=== PATIENT | male | born 1930 | race Caucasian/White ===

== ENCOUNTER 2020-10-15 16:38 | Inpatient (IN) | payer OTHER ==
[~2020-10-15] VITALS: Ht 175.3 cm; Wt 84.0 kg
[~2020-10-15 16:38] MED LIST: ALLO100 PO; ASPI81CH; CEPH500; COLCHICINE0.6 MG; DOC250 PO; FINA5 PO; NITR.4SL; OMEP20ER PO; PRIM50; SIMV40; Senna8.6 M1 PO; TAMS.4ER PO; ZESTORETIC 20-121 EA
[2020-10-15 17:06] LABS: BASOPHILS ABSOLUTE AUTO 0.06 K/mm3 (0.00-0.23); BASOPHILS PERCENT AUTO 1 % (0-2); EOSINOPHILS ABSOLUTE AUTO 0.48 K/mm3 (0.00-0.68); EOSINOPHILS PERCENT AUTO 6 % (0-6); Hematocrit 35.5 % (37.0-53.0); Hemoglobin 12.1 g/dL (13.5-17.5); IMMATURE GRAN ABSOLUTE AUTO 0.03 K/mm3 (0.00-0.10); IMMATURE GRAN PERCENT AUTO 0 % (0-1); LYMPHOCYTES PERCENT AUTO 16 % (21-46); MONOCYTES ABSOLUTE AUTO 0.42 K/mm3 (0.16-1.47); MONOCYTES PERCENT AUTO 5 % (4-13); Mean Corpuscular HGB 31.7 pg (26.0-34.0); Mean Corpuscular HGB Conc 34.1 g/dL (31.5-36.5); Mean Corpuscular Volume 93 fL (80-100); Mean Platelet Volume 8.8 fL (9.1-12.4); NEUTROPHILS ABSOLUTE AUTO 5.68 K/mm3 (1.96-9.15); NEUTROPHILS PERCENT AUTO 71 % (41-73); Platelet Count 284 K/mm3 (150-400); RDW Coefficient Variation 12.9 % (11.7-14.2); RDW Standard Deviation 44.4 fL (35.1-46.3); Red Blood Cell Count 3.82 M/mm3 (4.30-5.90); White Blood Cell Count 7.97 K/mm3 (4.00-11.30)
[2020-10-15 17:25] LABS: Albumin, Blood 3.7 g/dL (3.4-5.0); Albumin/Globulin Ratio 1.2 (0.8-1.8); Bilirubin, Total 0.3 mg/dL (0.1-1.0); Bun/Creatinine Ratio 12.7 (12.0-20.0); Calcium, Blood 8.6 mg/dL (8.5-10.1); Creatinine, Blood 1.58 mg/dL (0.60-1.20); Globulin, Blood 3.2 g/dL (2.2-4.0); Potassium, Blood 4.1 mmol/L (3.5-5.5); Total Protein, Blood 6.9 g/dL (6.4-8.2); Troponin I 0.29 ng/mL (0.000-0.040)
[2020-10-15 19:00] LABS: D-Dimer, Quantitative 0.73 mg/L FEU (0.00-0.52); International Normalized Ratio 1.04; Prothrombin Time Results 11.2 Sec (9.7-11.5)
[2020-10-15] MEDS ORDERED: AMLO5 PO (19:50)
[2020-10-15] MEDS ORDERED: LEVSOD75 PO (19:51)
[2020-10-15] MEDS ORDERED: MECL25 PO (19:52)
[2020-10-15] MEDS ORDERED: Prinivil10 MG PO (19:52)
[2020-10-15] MEDS ORDERED: THERA-D2000 UNIT PO (19:54)
[2020-10-15 20:18] LABS: Creatine Kinase MB 8.7 ng/mL (0.0-3.6); Creatine Kinase MB Index 6.8 (0.0-4.0)
[2020-10-15 20:20] LABS: Cholesterol 164 mg/dL (50-200); Triglycerides 185 mg/dL (30-160)
[2020-10-16 01:09] LABS: U Amphetamine Screen Not Detected; U Barbituate Screen Not Detected; U Benzodiazapine Screen Not Detected; U Buprenorphine Screen Not Detected; U Cannabinoids Screen Not Detected; U Cocaine Screen Not Detected; U Methadone Screen Not Detected; U Methamphetamine Screen Not Detected; U Opiates Screen Not Detected; U Oxycodone Screen Not Detected; U Phencyclidine Screen Not Detected; U Propoxyphene Screen Not Detected
[2020-10-16 02:38] LABS: BASOPHILS ABSOLUTE AUTO 0.07 K/mm3 (0.00-0.23); BASOPHILS PERCENT AUTO 1 % (0-2); EOSINOPHILS ABSOLUTE AUTO 0.74 K/mm3 (0.00-0.68); EOSINOPHILS PERCENT AUTO 11 % (0-6); Hemoglobin 10.7 g/dL (13.5-17.5); IMMATURE GRAN ABSOLUTE AUTO 0.02 K/mm3 (0.00-0.10); IMMATURE GRAN PERCENT AUTO 0 % (0-1); LYMPHOCYTES ABSOLUTE AUTO 1.69 K/mm3 (0.84-5.20); LYMPHOCYTES PERCENT AUTO 25 % (21-46); MONOCYTES ABSOLUTE AUTO 0.55 K/mm3 (0.16-1.47); MONOCYTES PERCENT AUTO 8 % (4-13); Mean Corpuscular HGB Conc 33.4 g/dL (31.5-36.5); Mean Corpuscular Volume 93 fL (80-100); Mean Platelet Volume 8.8 fL (9.1-12.4); NEUTROPHILS ABSOLUTE AUTO 3.83 K/mm3 (1.96-9.15); NEUTROPHILS PERCENT AUTO 56 % (41-73); Platelet Count 234 K/mm3 (150-400); RDW Standard Deviation 44.2 fL (35.1-46.3); Red Blood Cell Count 3.45 M/mm3 (4.30-5.90)
[2020-10-16 03:11] LABS: Albumin, Blood 3.1 g/dL (3.4-5.0); Albumin/Globulin Ratio 1.1 (0.8-1.8); Bilirubin, Total 0.4 mg/dL (0.1-1.0); Bun/Creatinine Ratio 14.2 (12.0-20.0); Creatine Kinase MB 16.7 ng/mL (0.0-3.6); Creatine Kinase MB Index 10.2 (0.0-4.0); Creatinine, Blood 1.41 mg/dL (0.60-1.20); Globulin, Blood 2.7 g/dL (2.2-4.0); Potassium, Blood 4.2 mmol/L (3.5-5.5); Total Protein, Blood 5.8 g/dL (6.4-8.2)
[2020-10-16 03:14] LABS: Troponin I 5.57 ng/mL (0.000-0.040)
--- NOTE | 2020-10-16 05:37 | NUR ---
ADMIT / SHIFT SUMMARY PT TO UNIT FROM ED. DENIES CP. AXO. IN SR/SB WITH STABLE BP'S. NITROPASTE ON LCW. ADMISSIONCOMPLETED EXCEPT FOR A FEW MEDS ON MED REC. PT ON RA, DENIES SOB, USING HOME CPAP. PT DENYING ANY CARDIAC RELATED SX'S POST ADMIT. HEPARIN INFUSING, TURNED OFF AND TITRATED WITH AM LABS. TROPONIN INCREASED TO >5, CARDIOLOGY CONSULT NOW CALLED IN. OTHERWISE, PT SLEEPING SOUNDLY POST ADMIT. WCTM.
[2020-10-16 10:26] LABS: SARS-Cov-2 (COVID-19) PCR, MMC NEGATIVE (NEGATIVE)
--- NOTE | 2020-10-16 14:05 | NUR ---
Echocardiogram completed.
--- NOTE | 2020-10-16 18:20 | NUR ---
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
[2020-10-17 04:41] LABS: CHOL/HDL RATIO 4.4; Cholesterol 148 mg/dL (50-200); HDL Cholesterol 34 mg/dL (>39); LDL/HDL RATIO 2.7; Low Density Lipoprotein Chol 91 mg/dL (0-110); Triglycerides 114 mg/dL (30-160); Very Low Density Lipoprot Chol 22 mg/dL (6-32)
--- NOTE | 2020-10-17 06:23 | NUR ---
SHIFT SUMMARY NO ACUTE CHANGES THIS SHIFT. PT A&OX4, KOI. SP02>92% ON RA, WORE CPAP WHILE SLEEPING. TELEMTRY READS SR/SB 50'S-60'S. PT DENIES PAIN. PT USED URINAL TO VOID DURING SHIFT. PT REPOSITIONED SELF T/O NIGHT. SLEPT T/O NIGHT. HEPARIN INFUSING PER EMAR. NS INFUSING PER EMAR. CALL LIGHT IN REACH. WILL GIVE REPORT TO ONCOMING NURSE.
[2020-10-17] MEDS ORDERED: MELO7.5 PO (11:56)
--- NOTE | 2020-10-17 12:06 | NUR ---
RETURN FROM ANGIO PT ARRIVED BACK FROM THE [facility] AT APPROXIMATELY 1145. PT HAS COMPRESSION DRESSING OVER RIGHT AC AND TR BAND IN PLACE OVER RADIAL ACCESS SITE. IMAGING AND DIAGNOSTICS WERE COMPLETED DURING THE PROCEDURE. TOMORROW PT WILL RETURN TO [facility] FOR FEMORAL ACCESS ANGIO. DR. HOANG STOPPED HEPARIN. NO DRAINAGE OR SIGN OF HEMATOMA AT THE SITE UPON RETURN TO PCU.
--- NOTE | 2020-10-17 13:52 | NUR ---
TR BAND TR BAND HAS BEEN MONITORED ACCORDING TO PROTOCOL, NO SIGN OF DRAINAGE OR HEMATOMA. PT HAS GOOD SENSATION IN HIS RIGHT HAND, AND STRONG RADIAL PULSE. VS STABLE AT THIS TIME
--- NOTE | 2020-10-17 14:54 | NUR ---
TR BAND REMOVED 3ML AIR FROM TR BAND AT 1440. NO SIGN OF DRAINAGE, HEMATOMA, GOOD SENSATION AND CAP REFILL IN THE RIGHT HAND, STRONG PULSE. WILL CONTINUE TO MONITOR AND REMOVE AIR TOLERATED BY THE RADIAL ACCESS SITE
--- NOTE | 2020-10-17 16:41 | NUR ---
TR BAND TR BAND HAS BEEN FULLY DEFLATED, 9ML OF AIR HAS BEEN REMOVED FROM THE BAND, THE BAND IS IN PLACE FOR 1 HOUR AND THEN WILL BE REMOVED LONG THERE ARE NO SIGNS OF HEMATOMA, NO DRAINAGE OR OTHER COMPLICATIONS. PT CURRENTLY SHOWS NO SIGNS OF DRAINAGE, NO HEMATOMA, FULL SENSATION IN FINGERS, HAND IS PINK AND WARM WITH GOOD PROFUSION, STRONG RADIAL PULSE.
[2020-10-17] MEDS ORDERED: NITR.4SL SL (16:44)
--- NOTE | 2020-10-17 18:22 | NUR ---
TR BAND REMOVED TR BAND HAS BEEN REMOVED OF 1814, THE ARM BOARD IS IN PLACE AND THE PT WAS REMINDED NOT TO USE THE ARM OTHER THAN GENTLE MOVEMENTS AND NO BENDING AT THE WRIST. PT IS AGREEABLE. NO DRAINAGE, NO HEMATOMA, STRONG PULSE AND FULL SENSATION AND PROFUSION IN THE HAND. AT THE PERFORATION SITE ON THE AC THE COMPRESSION DRESSING WAS REMOVED, NO DRAINAGE OR HEMATOMA NOTED.
--- NOTE | 2020-10-17 18:35 | NUR ---
SHIFT SUMMARY PT WAS TAKEN TO [facility] THIS MORNING AND HAD A DIAGNOSTIC PCI COMPLETED, PT RETURNED WITH TR BAND IN PLACE, NO DRAINAGE, HEMATOMA AND GOOD STRONG PULSE. THE TR BAND HAS BEEN REMOVED AND A TEGADERM WAS PUT IN ITS PLACE. THE PT HAD A RIGHT AC PERFORATION DURING THE PROCEDURE AND RETURNED TO PCU WITH GAUZE AND COBAN ON THE SITE ACTING A PRESSURE DRESSING; NO DRAINAGE OR HEMATOMA WITH THE SITE; THE DRESSING WAS REMOVED AT 1815 ALONG WITH THE TR BAND. SOME SLIGHT EDEMA WAS ON THE FOREARM BETWEEN THE TR BAND AND THE COBAN DRESSING IT HAS SINCE DECREASED. VS HAVE BEEN STABLE AND PT HAD FAMILY COME TO VISIT TODAY. PT WAS GIVEN THE CHOICE OF MEDICALLY MANAGING THE BLOCKAGE OR PROCEEDING WITH STENT PLACEMENT TOMORROW 10/18/20 WHICH POSES RISK TO HIS KIDNEY FUNCTION; THE PT AND HIS FAMILY HAVE DECIDED TO MEDICALLY MANAGE AT THIS TIME. PT IS RESTING IN BED
--- NOTE | 2020-10-18 04:11 | NUR ---
GUEST RELATIONS EXECUTIVE SUMMARY PT HAS DENIED ANY CP OR PRESSURE THIS SHIFT. PT HAS SLEPT COMFORTABLY FOR MOST OF THE NIGHT W CPAP ON. OPSITE ON RR HAS TRACE SWELLING WHICH IS UNCHANGED FROM PREVIOUS DAYSHIFT OTHERWISE C/D/I AND PAINLESS PER PT. SWELLING IN RFA IS IMPROVED GREATLY FROM START OF SHIFT. TELE HAS SHOWN SB 45-55 WHILE SLEEPING EVEN TOUCHING 39 VERY BRIEFLY. PT'S HR INSTANTLY UP IN 60'S WHEN AWOKEN AND APPEARS ASYMPTOMATIC. FLUIDS RUNNING AND URINE OUTPUT HAS BEEN VERY GOOD. VSS, WCTM.
[2020-10-18 04:37] LABS: BASOPHILS ABSOLUTE AUTO 0.05 K/mm3 (0.00-0.23); BASOPHILS PERCENT AUTO 1 % (0-2); EOSINOPHILS ABSOLUTE AUTO 0.64 K/mm3 (0.00-0.68); EOSINOPHILS PERCENT AUTO 9 % (0-6); Hematocrit 33.8 % (37.0-53.0); Hemoglobin 11.2 g/dL (13.5-17.5); IMMATURE GRAN ABSOLUTE AUTO 0.01 K/mm3 (0.00-0.10); IMMATURE GRAN PERCENT AUTO 0 % (0-1); LYMPHOCYTES ABSOLUTE AUTO 1.19 K/mm3 (0.84-5.20); LYMPHOCYTES PERCENT AUTO 17 % (21-46); MONOCYTES PERCENT AUTO 8 % (4-13); Mean Corpuscular HGB 30.9 pg (26.0-34.0); Mean Corpuscular HGB Conc 33.1 g/dL (31.5-36.5); Mean Corpuscular Volume 93 fL (80-100); Mean Platelet Volume 9.1 fL (9.1-12.4); NEUTROPHILS ABSOLUTE AUTO 4.67 K/mm3 (1.96-9.15); NEUTROPHILS PERCENT AUTO 65 % (41-73); Platelet Count 234 K/mm3 (150-400); RDW Standard Deviation 43.8 fL (35.1-46.3); Red Blood Cell Count 3.63 M/mm3 (4.30-5.90); White Blood Cell Count 7.16 K/mm3 (4.00-11.30)
[2020-10-18 04:55] LABS: Bun/Creatinine Ratio 14.7 (12.0-20.0); Calcium, Blood 8.5 mg/dL (8.5-10.1); Creatinine, Blood 1.43 mg/dL (0.60-1.20); Magnesium, Blood 1.8 mg/dL (1.6-2.4); Phosphorus, Blood 3.5 mg/dL (2.5-4.9); Potassium, Blood 4.1 mmol/L (3.5-5.5)
[2020-10-18] MEDS ORDERED: ACET325 PO (10:33)
[2020-10-18] MEDS ORDERED: Aspirin EC81 MG PO (10:33)
[2020-10-18] MEDS ORDERED: ONDA4ODT MM (10:34)
[2020-10-18] MEDS ORDERED: ATOR40TA PO (10:34)
[2020-10-18] MEDS ORDERED: Isosorbide Mono30 MG PO (10:35)
[2020-10-18] MEDS ORDERED: CLOP75 PO (10:35)
[2020-10-18] MEDS ORDERED: HYDR10 PO (10:37)
--- NOTE | 2020-10-18 11:32 | NUR ---
DISCHARGE PT WAS DISCHARGED AT APPROXIMATELY 1132. IV WAS REMOVED FROM LEFT AC, TELE WAS REMOVED, PT'S VS STABLE, PT ON RA. FOLLOW UP INSTRUCTIONS GIVEN TO PT TO MAKE APPOINTMENTS WITH PCP AND CARDIOLOGY. CARDIAC REHAB WAS ALSO CONTACTED FOR REFERRAL AND THEY WILL REACH OUT TO THE PATIENT TO SCHEDULE. PT WAS GIVEN INSTRUCTION ON CARING FOR THE TR BAND RADIAL ACCESS SITE AND LEFT WITH THE ARMBOARD IN PLACE. PT WAS GIVEN LOADING DOSE OF PLAVIX, 1ST DOSE OF IMDUR AND INCREASED DOSE OF LIPITOR PRIOR TO DISCHARGE.PT LEFT WITH SIGNIFICANT OTHER AND WAS ESCORTED OUT VIA WHEELCHAIR WITH CIVIL CLERK, AND ALL PERSONAL BELONGINGS INCLUDING HOME CPAP.
== END 2020-10-18 11:33 | disposition home or self-care (01) | DRG 281 ==
LOC: ER 16:38 → PCU 16:39
PROVIDERS: Emergency Medicine; Internal Medicine Cardiovascular Disease; ADMIT Family Medicine
PROC: 5A09357 Assistance with Respiratory Ventilation, Less than 24 Consecutive Hours, Continuous Positive Airway Pressure (ICD-10-PCS; 2020-10-15)
PROC: 03JY3ZZ Inspection of Upper Artery, Percutaneous Approach (ICD-10-PCS; principal; 2020-10-17)
PROC: 4A023N7 Measurement of Cardiac Sampling and Pressure, Left Heart, Percutaneous Approach (ICD-10-PCS; 2020-10-17)
PROC: B2111ZZ Fluoroscopy of Multiple Coronary Arteries using Low Osmolar Contrast (ICD-10-PCS; 2020-10-17)
DX: I21.4 Non-ST elevation (NSTEMI) myocardial infarction (principal); T82.855A Stenosis of coronary artery stent, initial encounter; I97.51 Accidental puncture and laceration of a circulatory system organ or structure during a circulatory system procedure; Q25.0 Patent ductus arteriosus; I25.10 Atherosclerotic heart disease of native coronary artery without angina pectoris; I44.0 Atrioventricular block, first degree; Z20.822 Contact with and (suspected) exposure to COVID-19; I16.0 Hypertensive urgency; I12.9 Hypertensive chronic kidney disease with stage 1 through stage 4 chronic kidney disease, or unspecified chronic kidney disease; N18.30 Chronic kidney disease, stage 3 unspecified; M10.9 Gout, unspecified; G47.33 Obstructive sleep apnea (adult) (pediatric); M54.9 Dorsalgia, unspecified; G89.29 Other chronic pain; N40.0 Benign prostatic hyperplasia without lower urinary tract symptoms; K21.9 Gastro-esophageal reflux disease without esophagitis; R00.1 Bradycardia, unspecified; D64.9 Anemia, unspecified; I73.9 Peripheral vascular disease, unspecified; Y65.8 Other specified misadventures during surgical and medical care; Y71.0 Diagnostic and monitoring cardiovascular devices associated with adverse incidents; Y92.239 Unspecified place in hospital as the place of occurrence of the external cause; Z79.899 Other long term (current) drug therapy
CPT/HCPCS: 36415; 71045; 76937; 80048; 80053; 80061; 82465; 82550; 82553; 83735; 83880; 84100; 84443; 84478; 84484; 85025; 85347; 85379; 85610; 85730; 93005; 93010; 93306; 93454; 94762; 96365; 96375; 96376; 99152; 99153; 99285-25; A9270; C1769; C1887; C1894; J1644; J2250; J2405; J3010; J7030; Q9967; U0004

== ENCOUNTER 2020-10-31 10:18 | Inpatient (IN) | payer OTHER ==
[~2020-10-31] VITALS: Ht 175.3 cm; Wt 81.5 kg
[~2020-10-31 10:18] MED LIST changes: +ACET325 PO; +AMLO5 PO; +ATOR40TA PO; +Aspirin EC81 MG PO; +CLOP75 PO; +HYDR10 PO; +Isosorbide Mono30 MG PO; +LEVSOD75 PO; +MECL25 PO; +MELO7.5 PO; +NITR.4SL SL; +ONDA4ODT MM; +Prinivil10 MG PO; +THERA-D2000 UNIT PO
[2020-10-31] MEDS ORDERED: DOCU100 PO (10:42)
[2020-10-31 11:04] LABS: BASOPHILS ABSOLUTE AUTO 0.06 K/mm3 (0.00-0.23); BASOPHILS PERCENT AUTO 1 % (0-2); EOSINOPHILS ABSOLUTE AUTO 0.32 K/mm3 (0.00-0.68); EOSINOPHILS PERCENT AUTO 3 % (0-6); Hematocrit 31.3 % (37.0-53.0); Hemoglobin 10.6 g/dL (13.5-17.5); IMMATURE GRAN ABSOLUTE AUTO 0.06 K/mm3 (0.00-0.10); IMMATURE GRAN PERCENT AUTO 1 % (0-1); LYMPHOCYTES ABSOLUTE AUTO 1.22 K/mm3 (0.84-5.20); LYMPHOCYTES PERCENT AUTO 11 % (21-46); MONOCYTES ABSOLUTE AUTO 0.69 K/mm3 (0.16-1.47); MONOCYTES PERCENT AUTO 6 % (4-13); Mean Corpuscular HGB 31.3 pg (26.0-34.0); Mean Corpuscular HGB Conc 33.9 g/dL (31.5-36.5); Mean Corpuscular Volume 92 fL (80-100); Mean Platelet Volume 9.1 fL (9.1-12.4); NEUTROPHILS ABSOLUTE AUTO 8.69 K/mm3 (1.96-9.15); NEUTROPHILS PERCENT AUTO 79 % (41-73); Platelet Count 333 K/mm3 (150-400); RDW Coefficient Variation 12.7 % (11.7-14.2); Red Blood Cell Count 3.39 M/mm3 (4.30-5.90); White Blood Cell Count 11.04 K/mm3 (4.00-11.30)
[2020-10-31 11:10] LABS: Alanine Aminotransfer (ALT/SGP 20 U/L (12-78); Albumin, Blood 3.5 g/dL (3.4-5.0); Albumin/Globulin Ratio 1.1 (0.8-1.8); Alk Phos 154 U/L (50-136); Anion Gap 9 mmol/L (6-16); Aspartate Aminotrans (AST/SGOT 13 U/L (12-37); Bilirubin, Total 0.4 mg/dL (0.1-1.0); Blood Urea Nitrogen 51 mg/dL (8-24); Bun/Creatinine Ratio 20.8 (12.0-20.0); CO2, Blood 16 mmol/L (21-32); Calcium, Blood 8.4 mg/dL (8.5-10.1); Chloride, Blood 102 mmol/L (98-108); Creatinine, Blood 2.45 mg/dL (0.60-1.20); Globulin, Blood 3.1 g/dL (2.2-4.0); Glomerular Filtration Rate 27 (60-); Glucose, Blood 127 mg/dL (70-99); Potassium, Blood 5.5 mmol/L (3.5-5.5); Sodium, Blood 127 mmol/L (136-145); Total Protein, Blood 6.6 g/dL (6.4-8.2); Troponin I <0.015 ng/mL (0.000-0.040)
--- NOTE | 2020-10-31 17:58 | NUR ---
SHIFT SUMMARY ED ADMIT THIS AFTERNOON. PATIENT DENIES PAIN, NAUSEA, AND SHORTNESS OF BREATH. PATIENT DENIES DIZZINESS BUT STATES HE STILL FEELS WEAKER THAN HIS NORMAL LEVEL OF ENERGY. TELEMETRY SHOWS NS IN THE 60'S PER MONTIOR TECH. AT BEDSIDE. PLEASANT AND COOPERATIVE WITH CARE.
[2020-11-01 05:05] LABS: Bun/Creatinine Ratio 21.3 (12.0-20.0); Calcium, Blood 8.2 mg/dL (8.5-10.1); Creatinine, Blood 2.02 mg/dL (0.60-1.20); Potassium, Blood 5.5 mmol/L (3.5-5.5)
--- NOTE | 2020-11-01 05:50 | NUR ---
SHIFT SUMMARY A/O, ABLE TO MAKE NEEDS KNOWN. COOPERATIVE WITH CARE. CALLS AND ANSWERS QUESTIONS APPROPRIATELY. NO C/O PAIN/DISCOMFORT. DID NOT APPEAR TO REST MUCH OVERNIGHT. WORE CPAP FOR VERY SHORT PERIOD OF TIME. TELE RUNNING SR /c 1ST DEGREE @ 61 PER CLINICAL BUSINESS MANAGER. NO ACUTE CHANGES NOTED OVERNIGHT. VSS/AFEBRILE. BED REMAINS IN LOWEST POSITION; ALARM ON. CALL LIGHT AND BELONGINGS WITHIN REACH. CONTINUE WITH CURRENT PLAN OF CARE. REPORT TO ONCOMING RN.
--- NOTE | 2020-11-01 18:23 | NUR ---
SHIFT SUMMARY PT HAS BEEN AWAKE MOST OF THE SHIFT. PT HAS HAD NO COMPLAINTS. WORKED WITH PHYSICAL THERAPY THIS SHIFT AND HAS BEEN AMBULATING WITH FWW WITHOUT DIFFICULTY. PT HAS HAD A GOOD APPETITE AND BEEN REMINDED TO DRINK PLENTY OF FLUIDS. NO ACUTE DISTRESS THIS SHIFT. PLANS FOR POSSIBLE DISCHARGE TOMORROW. CALL LIGHT IN REACH. WILL CONTINUE TO MONITOR AND REPORT TO ONCOMING RN.
[2020-11-02 05:04] LABS: Bun/Creatinine Ratio 19.6 (12.0-20.0); Calcium, Blood 8.5 mg/dL (8.5-10.1); Creatinine, Blood 1.68 mg/dL (0.60-1.20); Potassium, Blood 5.5 mmol/L (3.5-5.5)
--- NOTE | 2020-11-02 05:33 | NUR ---
SHIFT SUMMARY A/O, ABLE TO MAKE NEEDS KNOWN. COOPERATIVE WITH CARE. CALLS AND ANSWERS QUESTIONS APPROPRIATELY. NO C/O PAIN/DISCOMFORT. 1P /c FWW TO BATHROOM; STRONG/STEADY GAIT NOTED. APPEARED TO REST WELL OVERNIGHT. TELE RUNNING SB /c 1st DEGREE @ 55 PER SCRATCHER TENDER. VSS/AFEBRILE. NO ACUTE CHANGES NOTED OVERNIGHT. BED REMAINED IN LOWEST POSITION; ALARM ON. CALL LIGHT AND BELONGINGS WITHIN REACH. CONTINUE WITH CURRENT PLAN OF CARE. REPORT TO ONCOMING RN.
--- NOTE | 2020-11-02 13:31 | NUR ---
DISCHARGE PT DISCHARGED TO HOME. THIS RN EXPLAINED DISCHARGE INSTRUCTIONS AND MEDICATIONS TO PT AND PT'S SPOUSE. THEY REPORT THEY UNDERSTAND. IVS REMOVED WITHOUT DIFFICULTY. NO NEW MEDICATIONS. PT TRANSFERRED TO PRIVATE VEHICLE VIA WHEELCHAIR. PT'S BELONGINGS WITH PT AND PT'S SPOUSE.
== END 2020-11-02 12:45 | disposition home or self-care (01) | DRG 682 ==
LOC: ER 10:18 → MEDS 12:58
PROVIDERS: Emergency Medicine; Internal Medicine; ADMIT Internal Medicine
DX: N17.9 Acute kidney failure, unspecified (principal); I21.4 Non-ST elevation (NSTEMI) myocardial infarction; E87.1 Hypo-osmolality and hyponatremia; M10.9 Gout, unspecified; N18.9 Chronic kidney disease, unspecified; E86.0 Dehydration; N40.0 Benign prostatic hyperplasia without lower urinary tract symptoms; I25.10 Atherosclerotic heart disease of native coronary artery without angina pectoris; I12.9 Hypertensive chronic kidney disease with stage 1 through stage 4 chronic kidney disease, or unspecified chronic kidney disease; G47.33 Obstructive sleep apnea (adult) (pediatric); Z95.5 Presence of coronary angioplasty implant and graft; Z90.89 Acquired absence of other organs; Z98.1 Arthrodesis status; Z98.890 Other specified postprocedural states; Z79.899 Other long term (current) drug therapy; Z79.82 Long term (current) use of aspirin; Z79.02 Long term (current) use of antithrombotics/antiplatelets
CPT/HCPCS: 36415; 71045; 76770; 80048; 80053; 84484; 85025; 93005; 93010; 94762; 97110; 97116; 97162; 99285-25; A9270; C9113; J1644; J7030

== ENCOUNTER 2020-11-07 12:15 | Observation (INO) | payer OTHER ==
[~2020-11-07] VITALS: Ht 175.3 cm; Wt 79.3 kg
[~2020-11-07 12:15] MED LIST changes: +DOCU100 PO
[2020-11-07] MEDS ORDERED: CARBOXYMETHYLCE15 ML (12:38)
[2020-11-07 12:46] LABS: BASOPHILS ABSOLUTE AUTO 0.05 K/mm3 (0.00-0.23); BASOPHILS PERCENT AUTO 1 % (0-2); EOSINOPHILS ABSOLUTE AUTO 0.14 K/mm3 (0.00-0.68); EOSINOPHILS PERCENT AUTO 2 % (0-6); Hematocrit 30.9 % (37.0-53.0); Hemoglobin 11.3 g/dL (13.5-17.5); IMMATURE GRAN ABSOLUTE AUTO 0.05 K/mm3 (0.00-0.10); IMMATURE GRAN PERCENT AUTO 1 % (0-1); LYMPHOCYTES ABSOLUTE AUTO 0.91 K/mm3 (0.84-5.20); LYMPHOCYTES PERCENT AUTO 10 % (21-46); MONOCYTES ABSOLUTE AUTO 0.69 K/mm3 (0.16-1.47); MONOCYTES PERCENT AUTO 8 % (4-13); Mean Corpuscular HGB 31.5 pg (26.0-34.0); Mean Corpuscular HGB Conc 36.6 g/dL (31.5-36.5); Mean Corpuscular Volume 86 fL (80-100); Mean Platelet Volume 8.7 fL (9.1-12.4); NEUTROPHILS ABSOLUTE AUTO 7.05 K/mm3 (1.96-9.15); NEUTROPHILS PERCENT AUTO 79 % (41-73); Platelet Count 355 K/mm3 (150-400); RDW Coefficient Variation 12.1 % (11.7-14.2); RDW Standard Deviation 38.5 fL (35.1-46.3); Red Blood Cell Count 3.59 M/mm3 (4.30-5.90); White Blood Cell Count 8.89 K/mm3 (4.00-11.30)
[2020-11-07] MEDS ORDERED: MECL25 PO (12:46)
[2020-11-07] MEDS ORDERED: MELO7.5 PO (12:46)
[2020-11-07 13:10] LABS: Troponin I <0.015 ng/mL (0.000-0.040)
[2020-11-07 13:20] LABS: Alanine Aminotransfer (ALT/SGP 31 U/L (12-78); Albumin, Blood 3.8 g/dL (3.4-5.0); Albumin/Globulin Ratio 1.1 (0.8-1.8); Alk Phos 163 U/L (50-136); Anion Gap 8 mmol/L (6-16); Aspartate Aminotrans (AST/SGOT 25 U/L (12-37); Bilirubin, Total 0.5 mg/dL (0.1-1.0); Blood Urea Nitrogen 24 mg/dL (8-24); Bun/Creatinine Ratio 15.6 (12.0-20.0); CO2, Blood 20 mmol/L (21-32); Chloride, Blood 92 mmol/L (98-108); Creatinine, Blood 1.54 mg/dL (0.60-1.20); Globulin, Blood 3.5 g/dL (2.2-4.0); Glomerular Filtration Rate 46 (60-); Glucose, Blood 100 mg/dL (70-99); Potassium, Blood 4.5 mmol/L (3.5-5.5); Sodium, Blood 120 mmol/L (136-145); Total Protein, Blood 7.3 g/dL (6.4-8.2)
[2020-11-07 14:06] LABS: Source, Urine Clean Catch
[2020-11-07 14:14] LABS: Appearance, Urine Clear (Clear); Bilirubin, Urine Neg (Neg); Blood, Urine Neg (Neg); Color, Urine Yellow (P-Yellow); Glucose Qualitative, Urine Neg (Neg); Ketones, Urine 1+ (Neg); Leukocyte Esterase, Urine Neg (Neg); Nitrite, Urine Neg (Neg); Protein, Urine Neg (Neg); Specific Gravity, Urine 1.015 (1.003-1.022); Urobilinogen, Urine NORM (Normal)
--- NOTE | 2020-11-07 19:21 | NUR ---
SHIFT SUMMARY PATIENT TO THE FLOOR LATE THIS SHIFT. PATIENT ALERT AND ORIENTED UPON ARRIVAL. PATIENT PROVIDED WITH EVENING MEDICATIONS AND ORIENTED TO THE ROOM. PATIENT DENIES NEEDS AT THIS TIME. REPORT GIVEN TO NIGHT NURSE.
[2020-11-07 20:48] LABS: Bun/Creatinine Ratio 14.6 (12.0-20.0); Creatinine, Blood 1.58 mg/dL (0.60-1.20); Potassium, Blood 4.1 mmol/L (3.5-5.5)
--- NOTE | 2020-11-07 22:03 | NUR ---
HOME CPAP IN ROOM I HAVE SET UP THE PT'S HOME CPAP FOR THE NIGHT. I DID PUT IN THE ORDER, "BD PROTOCOL" TO ALLOW THE USE OF THE PT'S OWN CPAP WITH THE HOSPITALIST'S APPROVAL.
--- NOTE | 2020-11-08 04:03 | NUR ---
SHIFT SUMMARY ADMITTED FOR NAUSEA/VOMITING. FULL CODE. TELEMETRY: NSR @ 65 BPM. PLAN IS TO FLUID RESTRICT, SUPPLEMENT NA+, BOWEL CARE, MONITOR LABS, ADMIN PPI RX. HOPEFUL FOR DC HOME W/SPOUSE <2 DAYS. PT DENIES N/V THIS SHIFT. 1300 ML FLUID RESTRICTION. HOME CPAP IN ROOM FOR HS. [facility] IS [facility]. NO NEW CONCERNS THIS SHIFT.
[2020-11-08] MEDS ORDERED: Acetaminophen325 M1 PO (04:56)
[2020-11-08] MEDS ORDERED: CARBOXYMETHYLCE15 ML BOTHEYES (04:57)
[2020-11-08] MEDS ORDERED: MECL25 PO (05:01)
[2020-11-08] MEDS ORDERED: ONDA4 PO (05:02)
[2020-11-08 05:36] LABS: Bun/Creatinine Ratio 14.3 (12.0-20.0); Calcium, Blood 8.9 mg/dL (8.5-10.1); Creatinine, Blood 1.68 mg/dL (0.60-1.20); Potassium, Blood 4.3 mmol/L (3.5-5.5)
[2020-11-08] MEDS ORDERED: FAMO20 PO (11:08)
--- NOTE | 2020-11-08 11:59 | NUR ---
PT DISCHARGE TO HOME VIA WC. IV DC'D. PT GIVEN PACKET WITH MED LISTS' PT ALSO EDUCATED ABOUT THE NEW MEDICATION. PT ALREADY HAS SETUP APPOINTMENT TO PCP; INSTRUCTED TO WATER RESTRICTION FOR NOW WHILE WAITING FOR FOLLOW UP LAB OUTPT. PT WAS AT BEDSIDE. [facility], NO OTHER CONCERNS DURING DISCHARGE.
== END 2020-11-08 11:57 | disposition home or self-care (01) ==
LOC: ER 12:15 → MEDS 12:16
PROVIDERS: Emergency Medicine; ADMIT Internal Medicine
DX: E87.1 Hypo-osmolality and hyponatremia (principal); R11.2 Nausea with vomiting, unspecified; N40.0 Benign prostatic hyperplasia without lower urinary tract symptoms; K21.9 Gastro-esophageal reflux disease without esophagitis; I12.9 Hypertensive chronic kidney disease with stage 1 through stage 4 chronic kidney disease, or unspecified chronic kidney disease; N18.30 Chronic kidney disease, stage 3 unspecified; E03.9 Hypothyroidism, unspecified; K59.00 Constipation, unspecified; M10.9 Gout, unspecified; I25.10 Atherosclerotic heart disease of native coronary artery without angina pectoris; I25.2 Old myocardial infarction; Z95.5 Presence of coronary angioplasty implant and graft
CPT/HCPCS: 36415; 74022; 80048; 80053; 81003; 83690; 84484; 85025; 93005; 93010; 96372; 96374; 99285-25; A9270; G0378; J1650; J1940; J2405

== ENCOUNTER 2021-04-11 10:20 | Emergency (ER) | payer OTHER ==
[~2021-04-11] VITALS: Ht 170.2 cm; Wt 74.8 kg
[~2021-04-11 10:20] MED LIST changes: +Acetaminophen325 M1 PO; +CARBOXYMETHYLCE15 ML; +CARBOXYMETHYLCE15 ML BOTHEYES; +FAMO20 PO; +ONDA4 PO
[2021-04-11 11:17] LABS: BASOPHILS ABSOLUTE AUTO 0.04 K/mm3 (0.00-0.23); BASOPHILS PERCENT AUTO 0 % (0-2); EOSINOPHILS ABSOLUTE AUTO 0.19 K/mm3 (0.00-0.68); EOSINOPHILS PERCENT AUTO 2 % (0-6); Hematocrit 20.3 % (37.0-53.0); IMMATURE GRAN ABSOLUTE AUTO 0.04 K/mm3 (0.00-0.10); IMMATURE GRAN PERCENT AUTO 0 % (0-1); LYMPHOCYTES ABSOLUTE AUTO 0.82 K/mm3 (0.84-5.20); LYMPHOCYTES PERCENT AUTO 9 % (21-46); MONOCYTES ABSOLUTE AUTO 0.74 K/mm3 (0.16-1.47); MONOCYTES PERCENT AUTO 8 % (4-13); Mean Corpuscular HGB 18.4 pg (26.0-34.0); Mean Corpuscular HGB Conc 26.6 g/dL (31.5-36.5); Mean Corpuscular Volume 69 fL (80-100); Mean Platelet Volume 9.1 fL (9.1-12.4); NEUTROPHILS ABSOLUTE AUTO 7.54 K/mm3 (1.96-9.15); NEUTROPHILS PERCENT AUTO 81 % (41-73); Platelet Count 496 K/mm3 (150-400); RDW Coefficient Variation 19.8 % (11.7-14.2); RDW Standard Deviation 48.8 fL (35.1-46.3); Red Blood Cell Count 2.93 M/mm3 (4.30-5.90); White Blood Cell Count 9.37 K/mm3 (4.00-11.30)
[2021-04-11 11:28] LABS: Alanine Aminotransfer (ALT/SGP 20 U/L (12-78); Albumin/Globulin Ratio 0.8 (0.8-1.8); Alk Phos 223 U/L (50-136); Anion Gap 8 mmol/L (6-16); Aspartate Aminotrans (AST/SGOT 14 U/L (12-37); Bilirubin, Total 0.3 mg/dL (0.1-1.0); Blood Urea Nitrogen 26 mg/dL (8-24); Bun/Creatinine Ratio 17.4 (12.0-20.0); CO2, Blood 21 mmol/L (21-32); Calcium, Blood 8.7 mg/dL (8.5-10.1); Chloride, Blood 109 mmol/L (98-108); Creatinine, Blood 1.49 mg/dL (0.60-1.20); Globulin, Blood 3.6 g/dL (2.2-4.0); Glomerular Filtration Rate 44 (60-); Glucose, Blood 100 mg/dL (70-99); Potassium, Blood 4.3 mmol/L (3.5-5.5); Sodium, Blood 138 mmol/L (136-145); Total Protein, Blood 6.6 g/dL (6.4-8.2); Troponin I <0.015 ng/mL (0.000-0.040)
[2021-04-11 11:44] LABS: Hemoglobin 5.4 g/dL (13.5-17.5)
[2021-04-11 14:10] LABS: Influenza A, PCR NEGATIVE (NEGATIVE); Influenza B, PCR NEGATIVE (NEGATIVE); Resp Syncytial Virus, PCR NEGATIVE (NEGATIVE); SARS-Cov-2 (COVID-19) PCR, MMC NEGATIVE (NEGATIVE)
== END 2021-04-11 15:29 | disposition short-term general hospital (02) ==
LOC: ER 10:20
PROVIDERS: Emergency Medicine
DX: D50.9 Iron deficiency anemia, unspecified (principal); I12.9 Hypertensive chronic kidney disease with stage 1 through stage 4 chronic kidney disease, or unspecified chronic kidney disease; N18.30 Chronic kidney disease, stage 3 unspecified; I25.10 Atherosclerotic heart disease of native coronary artery without angina pectoris; I25.2 Old myocardial infarction; E03.9 Hypothyroidism, unspecified; N40.0 Benign prostatic hyperplasia without lower urinary tract symptoms; K21.9 Gastro-esophageal reflux disease without esophagitis; G47.30 Sleep apnea, unspecified; Z79.899 Other long term (current) drug therapy; Z79.82 Long term (current) use of aspirin; Z79.01 Long term (current) use of anticoagulants
CPT/HCPCS: 0241U; 36415; 71045; 80053; 84484; 85025; 86850; 86870; 86900; 86901; 86902; 86922; 93005; 93010; 99285-25

== ENCOUNTER 2021-08-04 07:30 | Day surgery (SDC) | payer OTHER ==
[~2021-08-04] VITALS: Ht 175.3 cm; Wt 76.0 kg
[~2021-08-04 07:30] MED LIST changes: +CIDAFLEX TABLE1 EAC1 PO; +FERSU300 PO; +[UNRECOGNIZED DRUG - CODE] SC
[2021-08-04] MEDS ORDERED: PANT20 PO (08:28)
--- NOTE | 2021-08-04 08:50 | NUR ---
INTO SDS VIA WC. ABLE TO AMBULATE SHORT DISTANCES WITH PERSONAL CANE. AT BEDSIDE.History, Chart, Medications and Allergies reviewed before start of procedure.Patient confirms NPO status and agrees with scheduled surgery. Patient states colon prep results clear.Lungs clear T/O to Auscultation. Patient States Post-Procedure ride home has been arranged WITH
--- NOTE | 2021-08-04 10:31 | NUR ---
08/04/[address] [facility] [place]ESTHESIA RECORD. Bite Block Placed. MONITOR INTACT WITH CONTINUOUS PULSE OXIMETRY AND INTERMITTENT BP. History, Chart, Medications and Allergies reviewed before start of procedure. 3-LEAD EKG REVIEWED WITH PHYSICIAN PRIOR TO START OF PROCEDURE. O2 VIA N/C INTACT THROUGHOUT SEDATION/PROCEDURE.
--- NOTE | 2021-08-04 12:46 | NUR ---
AMBULATED WITH PERSONAL CANE WITH STANDBY FROM SHANDA FISCHER. EDUCATED PT AND S/O ON NEED TO BALANCE BEFORE AMBULATING. Discharge instructions reviewed with patient AND S/O INCLUDING HOLDING PLAVIX DUE TO SCHEDULING ANOTER PROCEDURE NEXT WEEK PER DR. KEENAN VERBAL. Patient AND S/O verbalizes understanding. Copy given to patient to take home. Discharged via wheelchair to private car for ride home WITH S/O
== END 2021-08-04 12:35 | disposition home or self-care (01) ==
LOC: ORSCMMR 07:30 → ORD 11:30 → ORSCMMR 11:30 → ORSCSDS 09-12 09:45
PROVIDERS: Surgery
PROC: 0DBP8ZX Excision of Rectum, Via Natural or Artificial Opening Endoscopic, Diagnostic (ICD-10-PCS; principal; 2021-08-04 09:30)
PROC: 0DBL8ZX Excision of Transverse Colon, Via Natural or Artificial Opening Endoscopic, Diagnostic (ICD-10-PCS; principal; 2021-08-04 09:30)
PROC: 0DBH8ZX Excision of Cecum, Via Natural or Artificial Opening Endoscopic, Diagnostic (ICD-10-PCS; principal; 2021-08-04 09:30)
PROC: 3E0H8KZ Introduction of Other Diagnostic Substance into Lower GI, Via Natural or Artificial Opening Endoscopic (ICD-10-PCS; principal; 2021-08-04 09:30)
PROC: 0DJ08ZZ Inspection of Upper Intestinal Tract, Via Natural or Artificial Opening Endoscopic (ICD-10-PCS; principal; 2021-08-04 09:30)
PROC: 0DBK8ZX Excision of Ascending Colon, Via Natural or Artificial Opening Endoscopic, Diagnostic (ICD-10-PCS; principal; 2021-08-04 09:30)
DX: D50.0 Iron deficiency anemia secondary to blood loss (chronic) (principal); K92.1 Melena; C18.0 Malignant neoplasm of cecum; D12.2 Benign neoplasm of ascending colon; D12.3 Benign neoplasm of transverse colon; D12.8 Benign neoplasm of rectum; K21.9 Gastro-esophageal reflux disease without esophagitis; K44.9 Diaphragmatic hernia without obstruction or gangrene; I25.10 Atherosclerotic heart disease of native coronary artery without angina pectoris; G47.33 Obstructive sleep apnea (adult) (pediatric); Z87.891 Personal history of nicotine dependence; N18.30 Chronic kidney disease, stage 3 unspecified; E03.9 Hypothyroidism, unspecified; E78.5 Hyperlipidemia, unspecified; Z79.02 Long term (current) use of antithrombotics/antiplatelets; Z79.82 Long term (current) use of aspirin; Z79.899 Other long term (current) drug therapy
CPT/HCPCS: 88305; J2704; J7120

== ENCOUNTER 2021-08-09 09:46 | Inpatient (IN) | payer OTHER ==
[~2021-08-09] VITALS: Ht 175.3 cm; Wt 68.0 kg
[~2021-08-09 09:46] MED LIST changes: +PANT20 PO
--- NOTE | 2021-08-09 10:37 | NUR ---
PT INTO SDS VIA WC WITH . History, Chart, Medications and Allergies reviewed before start of procedure. Lungs clear T/O to Auscultation. Patient confirms NPO status and agrees with scheduled surgery. Pre-Op teaching done. Pt verbalizes understanding.
--- NOTE | 2021-08-09 13:09 | NUR ---
TOOK OVER PATIENT CARE AFTER REPORT WAS RECEIVED.
[2021-08-09 13:40] LABS: BASOPHILS ABSOLUTE AUTO 0.08 K/mm3 (0.00-0.23); BASOPHILS PERCENT AUTO 1 % (0-2); EOSINOPHILS ABSOLUTE AUTO 0.24 K/mm3 (0.00-0.68); EOSINOPHILS PERCENT AUTO 3 % (0-6); Hematocrit 28.2 % (37.0-53.0); Hemoglobin 8.2 g/dL (13.5-17.5); IMMATURE GRAN ABSOLUTE AUTO 0.03 K/mm3 (0.00-0.10); IMMATURE GRAN PERCENT AUTO 0 % (0-1); LYMPHOCYTES ABSOLUTE AUTO 0.65 K/mm3 (0.84-5.20); LYMPHOCYTES PERCENT AUTO 8 % (21-46); MONOCYTES ABSOLUTE AUTO 0.54 K/mm3 (0.16-1.47); MONOCYTES PERCENT AUTO 7 % (4-13); Mean Corpuscular HGB 26.3 pg (26.0-34.0); Mean Corpuscular HGB Conc 29.1 g/dL (31.5-36.5); Mean Corpuscular Volume 90 fL (80-100); Mean Platelet Volume 8.8 fL (9.1-12.4); NEUTROPHILS ABSOLUTE AUTO 6.61 K/mm3 (1.96-9.15); NEUTROPHILS PERCENT AUTO 81 % (41-73); Platelet Count 443 K/mm3 (150-400); RDW Coefficient Variation 18.3 % (11.7-14.2); RDW Standard Deviation 59.2 fL (35.1-46.3); Red Blood Cell Count 3.12 M/mm3 (4.30-5.90); White Blood Cell Count 8.15 K/mm3 (4.00-11.30)
--- NOTE | 2021-08-09 15:29 | NUR ---
08/09/21 1529 Trinity Saunders PATIENT HAD KEYS IN PLACE WHEN ENTERING OR. KEYS DRAINING YELLOW URINE.
[2021-08-09 20:40] LABS: Hematocrit 31.1 % (37.0-53.0); Hemoglobin 8.6 g/dL (13.5-17.5); Mean Corpuscular HGB 26.3 pg (26.0-34.0); Mean Corpuscular HGB Conc 27.7 g/dL (31.5-36.5); Mean Platelet Volume 8.6 fL (9.1-12.4); Platelet Count 515 K/mm3 (150-400); RDW Coefficient Variation 17.6 % (11.7-14.2); RDW Standard Deviation 61.1 fL (35.1-46.3); Red Blood Cell Count 3.27 M/mm3 (4.30-5.90); White Blood Cell Count 22.99 K/mm3 (4.00-11.30)
[2021-08-09 20:41] LABS: Mean Corpuscular Volume 95 fL (80-100)
--- NOTE | 2021-08-09 22:18 | NUR ---
RECEIVED PT. AT 2119 FROM PACU, PT. WAS AWAKE, MOANING AT TIMES, WHEN ASKED IF HE WAS IN PAIN BY WRITING IN A PAD, PT. REPLIED "NO". CPAP PLACED BY RT PT'S BASELINE AT HOME RELATED TO SLEEP APNEA, O2 AT 5L WITH O2 SAT 95% & ABOVE. COMPLAETE PHYSICAL ASSESSMENT DONE, 4 LAP INCISIONS ( 2 AT L QUADRANT, 1 AT UMBILICAL ARE & 1 AT RLQ) WITH DERMABOND C/D/I. TELEMETRY MONITORING PLACED PER MD ORDER, CONT. BIOX AT BEDSIDE, 1 IV ACCESS AT EACH ARM PATENT & INFUSING, SCDs PLACED, V/S CHECKED PER PROTOCOL WNL. 2224 PT. STARTED TO GO BACK TO SLEEP. NO S/S OF RESP./CV DISTRESS NOTED. KEYS CATH DRAINING CLEAR YELLOW URINE, CATH CARE DONE USING READYCLEANSE WIPES, PT. TOLERATED WELL.WILL CONTINUE TO MONITOR.
[2021-08-10 04:40] LABS: Hematocrit 31.5 % (37.0-53.0); Hemoglobin 9.1 g/dL (13.5-17.5); Mean Corpuscular HGB 26.7 pg (26.0-34.0); Mean Corpuscular HGB Conc 28.9 g/dL (31.5-36.5); Mean Corpuscular Volume 92 fL (80-100); Mean Platelet Volume 8.6 fL (9.1-12.4); Platelet Count 365 K/mm3 (150-400); RDW Coefficient Variation 17.4 % (11.7-14.2); RDW Standard Deviation 58.1 fL (35.1-46.3); Red Blood Cell Count 3.41 M/mm3 (4.30-5.90); White Blood Cell Count 16.44 K/mm3 (4.00-11.30)
[2021-08-10 05:04] LABS: Bun/Creatinine Ratio 14.6 (12.0-20.0); Calcium, Blood 8.6 mg/dL (8.5-10.1); Creatinine, Blood 1.71 mg/dL (0.60-1.20); Magnesium, Blood 2.1 mg/dL (1.6-2.4); Potassium, Blood 4.6 mmol/L (3.5-5.5)
--- NOTE | 2021-08-10 05:52 | NUR ---
SHIFT SUMMARY: PT. AOX4, CPAP ON BY RT, SLEEPING COMFORTABLY THROUGHOUT THE NIGT=HT, COMPLAINTS OF TENDERNESS/A\\PAIN TO ABDOMEN MEDICATED PER EMAR, VSS, NO ACUTE CHANGES NOTED. PT. REFUSED TO TAKE HIS 0600 PO MEDS PER PT. " I CAN NOT SWALLOW", WHEN ASKED WHY, PT. STATED " I WILL TRY IN THE MORNING". CN NOTIFIED. ROUNDING & TURNING DONE PER PROTOCOL THEN PRN, PT. TOLERATED WELL, VERBALIZED BEING COMFORTABLE WITH POSITIONS WHEN TURNED.
[2021-08-11 04:54] LABS: BASOPHILS ABSOLUTE AUTO 0.02 K/mm3 (0.00-0.23); BASOPHILS PERCENT AUTO 0 % (0-2); EOSINOPHILS PERCENT AUTO 0 % (0-6); Hematocrit 32.5 % (37.0-53.0); Hemoglobin 9.2 g/dL (13.5-17.5); IMMATURE GRAN ABSOLUTE AUTO 0.05 K/mm3 (0.00-0.10); IMMATURE GRAN PERCENT AUTO 0 % (0-1); LYMPHOCYTES ABSOLUTE AUTO 0.36 K/mm3 (0.84-5.20); LYMPHOCYTES PERCENT AUTO 3 % (21-46); MONOCYTES ABSOLUTE AUTO 0.99 K/mm3 (0.16-1.47); MONOCYTES PERCENT AUTO 7 % (4-13); Mean Corpuscular HGB Conc 28.3 g/dL (31.5-36.5); Mean Corpuscular Volume 92 fL (80-100); Mean Platelet Volume 8.9 fL (9.1-12.4); NEUTROPHILS ABSOLUTE AUTO 12.89 K/mm3 (1.96-9.15); NEUTROPHILS PERCENT AUTO 90 % (41-73); Platelet Count 373 K/mm3 (150-400); RDW Coefficient Variation 17.7 % (11.7-14.2); RDW Standard Deviation 58.3 fL (35.1-46.3); Red Blood Cell Count 3.54 M/mm3 (4.30-5.90); White Blood Cell Count 14.31 K/mm3 (4.00-11.30)
[2021-08-11 05:30] LABS: Bun/Creatinine Ratio 18.7 (12.0-20.0); Calcium, Blood 8.5 mg/dL (8.5-10.1); Creatinine, Blood 1.5 mg/dL (0.60-1.20); Potassium, Blood 4.1 mmol/L (3.5-5.5)
--- NOTE | 2021-08-11 06:06 | NUR ---
AT 0600 PT WAS ESCORTED TO CAT SCAN VIA WHEEL CHAIR, CONNECTED TO OXYGEN 3LPM VIA NC. HE HAS REMAINED SATING ABOVE 92% ON 3LPM OF OXYGEN VIA NC THROUGH OUT THE SHIFT. MADDIE DID TOLERATE HIS CPAP FOR A FEW HOURS THIS EVENING, THEN REQUESTED TO HAVE IT OFF. AT BASELINE HE DOES NOT REQUIRE OXYGEN EXCEPT FOR SLEEPING WITH CPAP. HE HAD ONE WATERY, LOOSE BM THIS EVENING. TWO PERSON ASSIST WITH FWW/GAITBELT TO BSC. KEYS IN PLACE DRAINING YELLOW URINE. HE REQUESTED PAIN MEDICATION ONCE. WILL CONTINUE TO MONITOR.
[2021-08-12 04:20] LABS: Hemoglobin 8.2 g/dL (13.5-17.5)
--- NOTE | 2021-08-12 17:07 | NUR ---
PT AOX3 AND COOPERATIVE OF CARE. PT IS STILL VERY TIRED AND TAKES A LOT OF NAPS. PT IS ABLE TO USE WALKER WITH GAIT BELT AND USE RESTROOM. PT NEEDS ENCOURAGEMENT TO EAT OR DRINK MUCH HE DOESN'T HAVE A STRONG APPETITE. PT TREATED FOR ABD PAIN PER EMAR. NO DISTRESS AT THIS TIME WILL CONTINUE TO MONITOR.
[2021-08-13 03:56] LABS: BASOPHILS ABSOLUTE AUTO 0.01 K/mm3 (0.00-0.23); BASOPHILS PERCENT AUTO 0 % (0-2); EOSINOPHILS ABSOLUTE AUTO 0.01 K/mm3 (0.00-0.68); EOSINOPHILS PERCENT AUTO 0 % (0-6); Hematocrit 28.7 % (37.0-53.0); Hemoglobin 8.4 g/dL (13.5-17.5); IMMATURE GRAN ABSOLUTE AUTO 0.02 K/mm3 (0.00-0.10); IMMATURE GRAN PERCENT AUTO 0 % (0-1); LYMPHOCYTES ABSOLUTE AUTO 0.32 K/mm3 (0.84-5.20); LYMPHOCYTES PERCENT AUTO 5 % (21-46); MONOCYTES ABSOLUTE AUTO 0.48 K/mm3 (0.16-1.47); MONOCYTES PERCENT AUTO 7 % (4-13); Mean Corpuscular HGB 25.9 pg (26.0-34.0); Mean Corpuscular HGB Conc 29.3 g/dL (31.5-36.5); Mean Corpuscular Volume 89 fL (80-100); NEUTROPHILS ABSOLUTE AUTO 5.95 K/mm3 (1.96-9.15); NEUTROPHILS PERCENT AUTO 88 % (41-73); Platelet Count 372 K/mm3 (150-400); RDW Coefficient Variation 17.4 % (11.7-14.2); RDW Standard Deviation 56.4 fL (35.1-46.3); Red Blood Cell Count 3.24 M/mm3 (4.30-5.90); White Blood Cell Count 6.79 K/mm3 (4.00-11.30)
[2021-08-13 04:11] LABS: Anion Gap 7 mmol/L (6-16); Blood Urea Nitrogen 29 mg/dL (8-24); Bun/Creatinine Ratio 28.4 (12.0-20.0); CO2, Blood 22 mmol/L (21-32); Calcium, Blood 8.1 mg/dL (8.5-10.1); Chloride, Blood 109 mmol/L (98-108); Creatinine, Blood 1.02 mg/dL (0.60-1.20); Glomerular Filtration Rate >60 (60-); Glucose, Blood 116 mg/dL (70-99); Potassium, Blood 3.8 mmol/L (3.5-5.5); Sodium, Blood 138 mmol/L (136-145)
--- NOTE | 2021-08-13 08:49 | NUR ---
SUMMARY PT WITH C/O TO BUSINESS SYSTEMS ANALYST OF MILD NAUSEA THIS AM.I WENT TO AND PT WAS SLEEPING. DAY RN AGREED TO FOLLOW UP, AND RIAN ORDERED.
--- NOTE | 2021-08-13 11:32 | NUR ---
LFA IV TWO IV ACCESS CHARTED IN SAME LOCATION, REMOVED DUPLICATE
--- NOTE | 2021-08-13 19:05 | NUR ---
SHIFT SUMMARY POD4 R SHEYLA COLECTOMY, A/OX4, VSS, PT REPORTED HAVING NAUSEA TODAY WHEN TRYING TO EAT REGULAR DIET WHICH HE WAS TOLERATING PRIOR, MEAL INTAKE CHECKED OVER LAST FEW DAYS WHICH SHOW MINIMAL (5% OR LESS) INTAKE WITH NOTHING TODAY, AT DINNER TIME HE ATTEMPTED TO TRY A BITE OF HIS FOOD AND BECAME INSTANTLY NAUSEATED WITH SMALL AMT OF EMISIS RESULTING. MEDICATED w RIAN AND UPDATED ONCALL SURGEON, ORDERS UPDATED WITH REGLAN (SEE EMAR) AND ACUTE ABD SERIES IN THE AM. PT DENIES NAUSEA AFTER MEDICATING. NO OTHER ACUTE EVENTS THIS SHIFT, CALL LIGHT IN REACH, WILL CTM AND REPORT TO NOC RN.
--- NOTE | 2021-08-14 07:35 | NUR ---
POD 5 S/P LAP SHEYLA COLECTOMY. PT VSS, 1-2L O2 NC IN PLACE PRN TO KEEP SATS >90%. INCISIONS CDI. PO INTAKE MINIMAL, PT DENIED N/V, REP PAIN MINIMAL. REPEAT IMAGING COMPLETED THIS AM. MOBILIZATION ENC PT JOVANNY.
--- NOTE | 2021-08-14 14:34 | NUR ---
DR BLANCO IN ROOM, PT WITH INCREASED WOB. INCREASED TO 6L FROM 4. RT NOTIFIED OF INCREASE.
--- NOTE | 2021-08-14 18:59 | NUR ---
SHIFT SUMMARY POD5 R HEMICOLECTOMY, A/OX4, VSS, PAIN MANAGED PER EMAR, AMBULATES c FWW/GB AND 1 SBA, CONTINUES TO HAVE TENDERNESS TO ABD c PALPATION AND IS GUARDED, PLEASANT AND COOPERATIVE c ALL NURSING CARE, NO ACUTE EVENTS THIS SHIFT, CALL LIGHT IN REACH, REPORT GIVEN TO ZEINAB FISCHER.
[2021-08-15 04:58] LABS: BASOPHILS ABSOLUTE AUTO 0.01 K/mm3 (0.00-0.23); BASOPHILS PERCENT AUTO 0 % (0-2); EOSINOPHILS ABSOLUTE AUTO 0.06 K/mm3 (0.00-0.68); EOSINOPHILS PERCENT AUTO 1 % (0-6); Hematocrit 30.8 % (37.0-53.0); Hemoglobin 8.8 g/dL (13.5-17.5); IMMATURE GRAN ABSOLUTE AUTO 0.07 K/mm3 (0.00-0.10); IMMATURE GRAN PERCENT AUTO 1 % (0-1); LYMPHOCYTES ABSOLUTE AUTO 0.66 K/mm3 (0.84-5.20); LYMPHOCYTES PERCENT AUTO 6 % (21-46); MONOCYTES ABSOLUTE AUTO 0.84 K/mm3 (0.16-1.47); MONOCYTES PERCENT AUTO 8 % (4-13); Mean Corpuscular HGB 25.1 pg (26.0-34.0); Mean Corpuscular HGB Conc 28.6 g/dL (31.5-36.5); Mean Corpuscular Volume 88 fL (80-100); Mean Platelet Volume 9.3 fL (9.1-12.4); NEUTROPHILS ABSOLUTE AUTO 9.31 K/mm3 (1.96-9.15); NEUTROPHILS PERCENT AUTO 85 % (41-73); Platelet Count 402 K/mm3 (150-400); RDW Standard Deviation 54.5 fL (35.1-46.3); White Blood Cell Count 10.95 K/mm3 (4.00-11.30)
[2021-08-15 05:09] LABS: Alanine Aminotransfer (ALT/SGP 16 U/L (12-78); Albumin, Blood 2.2 g/dL (3.4-5.0); Albumin/Globulin Ratio 0.8 (0.8-1.8); Alk Phos 112 U/L (50-136); Anion Gap 7 mmol/L (6-16); Aspartate Aminotrans (AST/SGOT 14 U/L (12-37); Bilirubin, Total 0.4 mg/dL (0.1-1.0); Blood Urea Nitrogen 24 mg/dL (8-24); Bun/Creatinine Ratio 23.3 (12.0-20.0); CO2, Blood 27 mmol/L (21-32); Calcium, Blood 8.4 mg/dL (8.5-10.1); Chloride, Blood 107 mmol/L (98-108); Creatinine, Blood 1.03 mg/dL (0.60-1.20); Globulin, Blood 2.9 g/dL (2.2-4.0); Glomerular Filtration Rate >60 (60-); Glucose, Blood 106 mg/dL (70-99); Magnesium, Blood 2.1 mg/dL (1.6-2.4); Phosphorus, Blood 2.9 mg/dL (2.5-4.9); Sodium, Blood 141 mmol/L (136-145); Total Protein, Blood 5.1 g/dL (6.4-8.2)
--- NOTE | 2021-08-15 06:45 | NUR ---
POD 6 S/P COLECTOMY. PT VSS, SATS >90% ON RA WHILE AWAKE, 1LO2 PLACED WHEN SLEEPING. PAIN MGD PER EMAR. PT DENIED N/V. ABD SOFTER AND LESS DISTENDED, PT PASSING FLATUS, NO BM. PT USING I/S AT BEDSIDE, MOBILIZATION ENC.
--- NOTE | 2021-08-15 19:16 | NUR ---
SHIFT SUMMARY POD6 LAP R HEMICOLECTOMY, A/O X4, VSS, PT CONTINUES TO HAVE POOR PO INTAKE, HAD SMALL AMT OF INTAKE AT BREAKFAST BUT NOTHING AFTERWARDS OTHER THAN FLUIDS, C/O OF ACUTE ABD PAIN AND WAS MEDICATED PER EMAR, PT C/O CONTINUED PAIN AFTER REASSESSMENT AND WAS GIVEN IV PAIN MEDS WHICH HE REPORTED TO REDUCE THE PAIN (SEE EMAR). TWO SCANT AMOUNTS OF EMESIS TODAY, PT REPORTED FEELING BETTER AFTER GETTING ZOFRAN. FIRST EMISIS WAS WHILE THE PT WAS IN THE BATHROOM AND WAS NOT NOTIFIED ABOUT IT UNTIL AFTER THE SECOND EPISODE JUST AFTEER 1500 TODAY. PT APPEARS TO BE FEELING BETTER AFTER THAT, REPORTS PAIN DOING BETTER, ABD IS SLIGHTLY MORE TENDER AFTER THIS COMPARED TO INITIAL ASSESSMENT AT START OF SHIFT. PT APPEARS STABLE AT THIS TIME. 2 BM TODAY, SECOND APPEARED TO HAVE SOME BLOOD (SURGEON AWARE). NO OTHER EVENTS THIS SHIFT, CALL LIGHT IN REACH, REPORT GIVEN TO NOC RN.
--- NOTE | 2021-08-16 06:39 | NUR ---
POD 6 S/P COLECTOMY. PT VSS. INCISIONS CDI. ABD SOFTER AND LESS DISTENDED THIS AM, BT MORE ACTIVE. PT PASSING SMALL AMT FLATUS, NO BM. PT DID REP MILD NAUSEA, NO EMESIS THIS SHIFT. PT PAIN MGD PER EMAR W/REP RELIEF. PT UP OOB W/FWW+SBA, MOBILIZATION ENC.
--- NOTE | 2021-08-16 17:24 | NUR ---
SHIFT SUMMARY PT IS POD# FROM LAP SHEYLA COLECTOMY. PT HAS HAD INCREASED ABD PAIN AND NAUSEA TODAY. NO VOMITING. PT HAS A DECREASED APPETITE. PT IS A 1 ASSIST WITH GAIT BELT AND WALKER. PAIN MANAGED WITH NORCO. VSS. REPORT GIVEN TO ZEINAB FISCHER.
--- NOTE | 2021-08-16 17:54 | NUR ---
PT. DECLINES ANY DINNER, STATES HE JUST DOESNT FEEL LIKE EATING TONIGHT. DOES VERBALIZE RELIEF OF ABDOMINAL DISCOMFORT WITH ONE PAIN PILL GIVEN AT 1648. RESTING IN CHAIR. DECLINES OFFER FOR ASSIST BACK TO BED AT THIS TIME. CALL LIGHT IN REACH.
--- NOTE | 2021-08-17 06:48 | NUR ---
summary pt sitting up in chair at bedside reporting good pain control. scant emesis x 1 tonight.
--- NOTE | 2021-08-17 15:21 | NUR ---
PT WITH POOR APPETITE AND STATES HE POLO INTERMITTENT NAUSEA, MEDICATED WITH ZOFRAN AND REPORTS SLIGHT LESSENING OF NAUSEA. PT HAS BEEN UP TO CHAIR THROUGHOUT SHIFT. MEDICATED X1 WITH PO MED FOR ABD PAIN AND REPORTS GOOD ELIEF OF PAIN. HAD ONE LIQUID BM WHICH WA REPORTED BY TUBE TEST TECHNICIAN TO LOOK LIKE CHARCOAL
--- NOTE | 2021-08-17 18:29 | NUR ---
SHIFT SUMMARY TOOK OVER CARE AT 1600. PT UP TO CHAIR, RESTING COMFORTABLY. LOW DINNER PO INTAKE. TOTAL 3 BM'S TODAY-DK BRYNN COLORED-LIQUID. WILL REPORT TO ONCOMING ZEINAB FISCHER.
--- NOTE | 2021-08-18 03:54 | NUR ---
PT WITH NEW ONSET A FLUTTER. I CALLED DR BERMUDEZ AND RECEIVED NEW ORDERS.
[2021-08-18 05:12] LABS: Hemoglobin 9.7 g/dL (13.5-17.5); Mean Corpuscular HGB 25.2 pg (26.0-34.0); Mean Corpuscular HGB Conc 29.4 g/dL (31.5-36.5); Mean Corpuscular Volume 86 fL (80-100); Mean Platelet Volume 9.1 fL (9.1-12.4); Platelet Count 501 K/mm3 (150-400); RDW Coefficient Variation 17.2 % (11.7-14.2); RDW Standard Deviation 53.4 fL (35.1-46.3); Red Blood Cell Count 3.85 M/mm3 (4.30-5.90); White Blood Cell Count 19.18 K/mm3 (4.00-11.30)
[2021-08-18 05:31] LABS: Albumin, Blood 2.4 g/dL (3.4-5.0); Anion Gap 5 mmol/L (6-16); Blood Urea Nitrogen 45 mg/dL (8-24); Bun/Creatinine Ratio 31.5 (12.0-20.0); CO2, Blood 23 mmol/L (21-32); Calcium, Blood 7.8 mg/dL (8.5-10.1); Chloride, Blood 108 mmol/L (98-108); Creatinine, Blood 1.43 mg/dL (0.60-1.20); Glomerular Filtration Rate 47 (60-); Glucose, Blood 112 mg/dL (70-99); Phosphorus, Blood 3.8 mg/dL (2.5-4.9); Sodium, Blood 136 mmol/L (136-145)
[2021-08-18 05:33] LABS: BAND PERCENT MAN 35 % (0-8); BASOPHILS PERCENT MAN 0 % (0-2); EOSINOPHILS PERCENT MAN 0 % (0-6); LYMPHOCYTES ABSOLUTE MAN 0.95 K/mm3 (0.84-5.20); LYMPHOCYTES PERCENT MAN 5 % (21-46); MONOCYTES ABSOLUTE MAN 0.95 K/mm3 (0.16-1.47); MONOCYTES PERCENT MAN 5 % (4-13); NEUTROPHILS ABSOLUTE MAN 17.26 K/mm3 (1.96-9.15); SEG NEUTROPHILS PERCENT MAN 55 % (41-73); TOTAL CELLS COUNTED 100
--- NOTE | 2021-08-18 06:10 | NUR ---
SUMMARY FOLLOW UP CALL TO DR BERMUDEZ. 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 DR BERMUDEZ ORDERED TO GIVE NOW.ALSO ADVISED WHEN PT OOB FOR BRP HEART RATE INCREASES TO 130.PT DENIES CP OR SOB.
--- NOTE | 2021-08-18 07:28 | NUR ---
PER CLINICAL STAFF RN,PT CONVERTED TO SINUS WITH PVCS
--- NOTE | 2021-08-18 07:29 | NUR ---
5606 notified by athletic monitor that patient converted to sinus rhythm, pt resting in bed
--- NOTE | 2021-08-18 11:17 | NUR ---
1035 TO ULTRASOUND VIA WHEELCHAIR
--- NOTE | 2021-08-18 11:17 | NUR ---
1100 RETURNED TO ROOM FROM ULTRASOUND, ASSISTED TO CHAIR
--- NOTE | 2021-08-18 16:39 | NUR ---
PATIENT HAS REMAINED IN SINUS RHTHYM WITH HEARTRATE 64
--- NOTE | 2021-08-18 17:28 | NUR ---
MEDICATED X2 FOR ABD PAIN AND PT REPORTS PAIN IS AT A TOLERABLE LEVEL. VERY LITTLE APPETITE AND POOR PO INTAKE. PTS GIRLFRIEND AT BEDSIDE MUCH OF SHIFT AND ENCOURAGING INTAKE. UP TO BR FOR LOOSE GREEN/HEWITT LIQUID STOOLS
--- NOTE | 2021-08-19 03:42 | NUR ---
PT IS A&O, IS A MOD ASSIST OOB, AND IS ABLE TO MAKE NEEDS KNOWN. PT REMAINS ON TELE TO MONITOR CARDIAC FUNCTION, CURRENTLY NSR WITH PVC. 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 NO REQUESTS FOR PAIN MEDICATIONS THIS SHIFT. PT SLEEPS THROUGH THE NIGHT. IS ABLE TO TAKE NIGHT TIME MEDS WHOLE WITH THINS. WILL CONTINUE TO MONITOR THIS PATIENT.
[2021-08-19 04:14] LABS: Hematocrit 31.2 % (37.0-53.0); Hemoglobin 9.1 g/dL (13.5-17.5); Mean Corpuscular HGB 25.3 pg (26.0-34.0); Mean Corpuscular HGB Conc 29.2 g/dL (31.5-36.5); Mean Corpuscular Volume 87 fL (80-100); Mean Platelet Volume 9.4 fL (9.1-12.4); Platelet Count 457 K/mm3 (150-400); RDW Coefficient Variation 17.1 % (11.7-14.2); RDW Standard Deviation 54.3 fL (35.1-46.3); White Blood Cell Count 12.35 K/mm3 (4.00-11.30)
[2021-08-19 04:34] LABS: Bun/Creatinine Ratio 35.4 (12.0-20.0); Creatinine, Blood 1.27 mg/dL (0.60-1.20); Potassium, Blood 3.6 mmol/L (3.5-5.5)
[2021-08-19 05:02] LABS: BAND PERCENT MAN 34 % (0-8); BASOPHILS PERCENT MAN 0 % (0-2); EOSINOPHILS ABSOLUTE MAN 0.12 K/mm3 (0.00-0.68); EOSINOPHILS PERCENT MAN 1 % (0-6); LYMPHOCYTES ABSOLUTE MAN 0.98 K/mm3 (0.84-5.20); LYMPHOCYTES PERCENT MAN 8 % (21-46); MONOCYTES ABSOLUTE MAN 0.37 K/mm3 (0.16-1.47); MONOCYTES PERCENT MAN 3 % (4-13); NEUTROPHILS ABSOLUTE MAN 10.86 K/mm3 (1.96-9.15); SEG NEUTROPHILS PERCENT MAN 54 % (41-73); TOTAL CELLS COUNTED 100
--- NOTE | 2021-08-19 19:06 | NUR ---
PT HAS BEEN STABLE THIS SHIFT. AFEBRILE. PT WORKED WELL WITH THERAPY TO AMBULATE AND SIT IN CHAIR. PT HAS REPORTED MINIMAL PAIN. NORCO X1 THIS AM EFFECTIVE. PT HAD BEDBATH THIS AFTERNOON. NAUSEA X1, PRN ZOFRAN EFFECTIVE. PT VOIDING WELL. CONT TO HAVE RAM PASTY LIQUID STOOLS. VERY POOR APPETITE. STERI STRIPS CDI TO ABDOMEN. TELE SB-NSR WITH PVC'S. CALLS APPROPRIATELY. PLAN FOR SNF AT DISCHARGE.
--- NOTE | 2021-08-20 03:29 | NUR ---
SHIFT SUMMARY: PT. AOX4, PLEASANT TO STAFF. AMBULATES TO THE BATHROOM USING A WALKER & GAITBELT ON 1 PERSON ASSIST. ABLE TO MAKE NEEDS KNOWN, USES CALL LIGHT, CLWR. REFUSED TO EAT HIS DINNER SERVED BUT ATE 3/4 OF BIG TABLE BANANA BEFORE HE WENT TO BED AROUND 2129. 3 LAP INCISIONS WITH DERMABOND C/D/I, 1 LAP INCISION WITH BANDAID ON C/D/I.NO ACUTE CHANGES NOTED.WILL CONTINUE TO MONITOR.
[2021-08-20 04:46] LABS: BASOPHILS ABSOLUTE AUTO 0.02 K/mm3 (0.00-0.23); BASOPHILS PERCENT AUTO 0 % (0-2); EOSINOPHILS ABSOLUTE AUTO 0.19 K/mm3 (0.00-0.68); EOSINOPHILS PERCENT AUTO 2 % (0-6); Hematocrit 29.7 % (37.0-53.0); Hemoglobin 8.6 g/dL (13.5-17.5); IMMATURE GRAN ABSOLUTE AUTO 0.05 K/mm3 (0.00-0.10); IMMATURE GRAN PERCENT AUTO 0 % (0-1); LYMPHOCYTES PERCENT AUTO 6 % (21-46); MONOCYTES ABSOLUTE AUTO 0.62 K/mm3 (0.16-1.47); MONOCYTES PERCENT AUTO 6 % (4-13); Mean Corpuscular HGB 25.1 pg (26.0-34.0); Mean Corpuscular Volume 87 fL (80-100); Mean Platelet Volume 9.6 fL (9.1-12.4); NEUTROPHILS PERCENT AUTO 86 % (41-73); Platelet Count 442 K/mm3 (150-400); RDW Coefficient Variation 16.9 % (11.7-14.2); RDW Standard Deviation 53.4 fL (35.1-46.3); Red Blood Cell Count 3.43 M/mm3 (4.30-5.90); White Blood Cell Count 11.18 K/mm3 (4.00-11.30)
[2021-08-20 05:04] LABS: Albumin, Blood 2.1 g/dL (3.4-5.0); Albumin/Globulin Ratio 0.8 (0.8-1.8); Bilirubin, Total 0.4 mg/dL (0.1-1.0); Bun/Creatinine Ratio 31.3 (12.0-20.0); Calcium, Blood 7.6 mg/dL (8.5-10.1); Creatinine, Blood 1.15 mg/dL (0.60-1.20); Globulin, Blood 2.8 g/dL (2.2-4.0); Magnesium, Blood 2.3 mg/dL (1.6-2.4); Phosphorus, Blood 2.2 mg/dL (2.5-4.9); Potassium, Blood 3.1 mmol/L (3.5-5.5); Total Protein, Blood 4.9 g/dL (6.4-8.2)
--- NOTE | 2021-08-20 18:40 | NUR ---
PATIENT UP IN CHAIR TODAY AND TOLERATE WELL. APPETITE IMPROVING SLOWLY AND IS TRYING TO EAT. EATS SMALL AMOUNTS EACH MEAL. UP TODAY AND AMBULATE IN WOODRUFF WITH FWW, GAIT BELT AND SBA. TOLERATE WELL. FAMILY IN TO VISIT TODAY.
[2021-08-21 04:37] LABS: BASOPHILS ABSOLUTE AUTO 0.02 K/mm3 (0.00-0.23); BASOPHILS PERCENT AUTO 0 % (0-2); EOSINOPHILS ABSOLUTE AUTO 0.31 K/mm3 (0.00-0.68); EOSINOPHILS PERCENT AUTO 5 % (0-6); Hematocrit 31.8 % (37.0-53.0); Hemoglobin 9.2 g/dL (13.5-17.5); IMMATURE GRAN ABSOLUTE AUTO 0.02 K/mm3 (0.00-0.10); IMMATURE GRAN PERCENT AUTO 0 % (0-1); LYMPHOCYTES ABSOLUTE AUTO 0.56 K/mm3 (0.84-5.20); LYMPHOCYTES PERCENT AUTO 8 % (21-46); MONOCYTES PERCENT AUTO 10 % (4-13); Mean Corpuscular HGB 24.8 pg (26.0-34.0); Mean Corpuscular HGB Conc 28.9 g/dL (31.5-36.5); Mean Corpuscular Volume 86 fL (80-100); Mean Platelet Volume 9.6 fL (9.1-12.4); NEUTROPHILS ABSOLUTE AUTO 5.19 K/mm3 (1.96-9.15); NEUTROPHILS PERCENT AUTO 76 % (41-73); Platelet Count 413 K/mm3 (150-400); RDW Coefficient Variation 16.9 % (11.7-14.2); RDW Standard Deviation 51.9 fL (35.1-46.3); Red Blood Cell Count 3.71 M/mm3 (4.30-5.90)
--- NOTE | 2021-08-21 04:37 | NUR ---
SUMMARY NO NEW ISSUES NOTED. PT CONTINUES TO HAVE LIQUID STOOLS. PT DENIES PAIN OR DISCOMFORT. PT HAS SLEPT VERY WELL DURING SHIFT. PT CURRENTLY SLEEPING IN NO DISTRESS. BED ALARM ON AND CALL LIGHT IN REACH.
[2021-08-21 05:12] LABS: Albumin, Blood 2.3 g/dL (3.4-5.0); Albumin/Globulin Ratio 0.8 (0.8-1.8); Bilirubin, Total 0.4 mg/dL (0.1-1.0); Bun/Creatinine Ratio 25.4 (12.0-20.0); Calcium, Blood 7.5 mg/dL (8.5-10.1); Creatinine, Blood 1.22 mg/dL (0.60-1.20); Globulin, Blood 2.9 g/dL (2.2-4.0); Magnesium, Blood 2.2 mg/dL (1.6-2.4); Phosphorus, Blood 3.1 mg/dL (2.5-4.9); Potassium, Blood 3.5 mmol/L (3.5-5.5); Total Protein, Blood 5.2 g/dL (6.4-8.2)
[2021-08-21] MEDS ORDERED: ASCORBIC ACID500 MG PO (11:43)
[2021-08-21] MEDS ORDERED: Acetaminophen650 M1 PO (11:43)
[2021-08-21] MEDS ORDERED: DOCU100 PO (11:44)
[2021-08-21] MEDS ORDERED: Calcium Carbon500 MG PO (11:44)
[2021-08-21] MEDS ORDERED: Norco 5-325 Ta1 EACH PO (11:45)
[2021-08-21] MEDS ORDERED: METO5A PO (11:47)
[2021-08-21] MEDS ORDERED: METO25 PO (11:47)
[2021-08-21] MEDS ORDERED: ONDA4ODT MM (11:48)
[2021-08-21] MEDS ORDERED: LACRI-LUBE BOTHEYES (11:50)
--- NOTE | 2021-08-21 17:08 | NUR ---
SHIFT SUMMARY ALERT AND ORIENTED THROUGHOUT SHIFT. FELT GOOD DURING AM. WALKED IN HALLS, TOLERATED BREAKFAST AND LIQUIDS. VOIDING WELL AND BM. ABD SOFT AND NON-TENDER. AFTER LUNCH PATIENT EXPERIENCED GAS DURING AFTERNOON. INCREASED PAIN MEDICATION AFTER SPEAKING WITH DR SAHNI. GAVE SIMETHICONE, REPOSITIONED, PROVIDED HEATING PAD FOR COMFORT. FREQUENT SHORT WALKS. ABD GAURDED AND TENDER DURING AFTERNOON. LAP SITES INCISIONS C/D/I. NO IV ACCESS ORDER PER DR SAHNI. PLAN TO DISCHARGE TO SNF [place] 08/22/21.
--- NOTE | 2021-08-22 04:52 | NUR ---
SHIFT SUMMARY NO ACUTE CHANGES THIS SHIFT. 2 NORCO FOR ABD PAIN PRN. PT REPORTS FLATUS. ABD STILL DISTENDED, BUT BTS ACTIVE. LAP SITES REMAIN CDI. PT ABLE TO VOID X1 THIS SHIFT, BLADDER SCANNING PRN. 1 SBA WHEN OOB. PLAN FOR PT TO DC TO SNF TODAY. USES CALL LIGHT APPROPRIATELY.
[2021-08-22 09:14] LABS: Hematocrit 39.9 % (37.0-53.0); Mean Corpuscular HGB 24.9 pg (26.0-34.0); Mean Corpuscular HGB Conc 27.6 g/dL (31.5-36.5); Mean Corpuscular Volume 91 fL (80-100); Mean Platelet Volume 9.6 fL (9.1-12.4); Platelet Count 588 K/mm3 (150-400); RDW Coefficient Variation 17.3 % (11.7-14.2); RDW Standard Deviation 57.6 fL (35.1-46.3); Red Blood Cell Count 4.41 M/mm3 (4.30-5.90)
--- NOTE | 2021-08-22 09:31 | NUR ---
PT C/O 8-9 L SIDE ABD PAIN THIS AM, (SEE SHIFT ASSESSMENT), PT MEDICATED FOR PAIN, DR. SAHNI NOTIFIED THIS AM, NS BOLUS STARTED, DR. KEENAN NOTIFIED, CAME IN TO SEE PT, CT ABD ORDERED, CONT. TO MONITOR VS AND ANY CHANGES, PT'S S.O AT BEDSIDE, PT'S DAUGHTER DONNA NOTIFIED RIGOBERTO OF CHANGES.
[2021-08-22 09:32] LABS: Albumin, Blood 2.1 g/dL (3.4-5.0); Albumin/Globulin Ratio 0.7 (0.8-1.8); Bilirubin, Total 0.3 mg/dL (0.1-1.0); Bun/Creatinine Ratio 18.2 (12.0-20.0); Calcium, Blood 7.5 mg/dL (8.5-10.1); Creatinine, Blood 2.2 mg/dL (0.60-1.20); Globulin, Blood 3.1 g/dL (2.2-4.0); Potassium, Blood 4.1 mmol/L (3.5-5.5); Total Protein, Blood 5.2 g/dL (6.4-8.2)
[2021-08-22 09:35] LABS: BAND PERCENT MAN 67 % (0-8); BASOPHILS PERCENT MAN 0 % (0-2); EOSINOPHILS PERCENT MAN 0 % (0-6); MONOCYTES ABSOLUTE MAN 0.21 K/mm3 (0.16-1.47); MONOCYTES PERCENT MAN 2 % (4-13); MYELOCYTE ABSOLUTE MAN 0.21 K/mm3 (0.00-0.00); MYELOCYTE PERCENT MAN 2 % (0-0); NEUTROPHILS ABSOLUTE MAN 10.36 K/mm3 (1.96-9.15); SEG NEUTROPHILS PERCENT MAN 29 % (41-73); TOTAL CELLS COUNTED 100
--- NOTE | 2021-08-22 11:15 | NUR ---
CT RESULTS EXPLAINED TO PT AND S.O. BY DR. KEENAN, PT WILL NEED TO GO TO THE OR FOR EXP. LAP PER DR. KEENAN, PT TAKEN TO DAY SURGERY, PT'S DAUGHTER DONNA NOTIFIED.
--- NOTE | 2021-08-22 11:15 | NUR ---
History, Chart, Medications and Allergies reviewed before start of procedure. Lungs clear T/O to Auscultation. Patient confirms NPO status and agrees with scheduled surgery. Pre-Op teaching done. Pt verbalizes understanding. PT C/O SEVERE LEFT SIDED ABD PAIN. PT WITH SHALLOW RAPID RESPIRATION, DIFFICULT TO ASSESS LUNG SOUNDS. PT EXTREMELTY TENDER TO ANY MOVEMENT OR POSITION CHANGES. 2 IV'S STARTED BY HOLLY R, 18G IV LEFT FA AND 18 R ARM. PT ON 2L NC. ABD APPEARS DISTENDED.
--- NOTE | 2021-08-22 13:06 | NUR ---
08/22/21 1306 Trinity Saunders UPON INTUBATION CODE WAS CALLED ON PATIENT. SEE ANESTHESIOLOGIST'S NOTES. KEYS WAS PLACED INTRAOPERATIVELY. DRAINING DARK URINE. DOCTOR SHLOMO REQUESTED PLATELETS AND BLOOD ORDERED. BLOOD BANK WAS CALLED AND ORDERS WERE PUT IN.
--- NOTE | 2021-08-22 13:53 | NUR ---
ARRIVAL TO ICU: Pt arrived to ICU from OR at 1352 with norepi running at 30mcg.
[2021-08-22 14:54] LABS: Albumin, Blood 1.4 g/dL (3.4-5.0); Anion Gap 13 mmol/L (6-16); Blood Urea Nitrogen 37 mg/dL (8-24); CO2, Blood 13 mmol/L (21-32); Calcium, Blood 6.5 mg/dL (8.5-10.1); Chloride, Blood 112 mmol/L (98-108); Creatinine, Blood 1.76 mg/dL (0.60-1.20); Glomerular Filtration Rate 37 (60-); Glucose, Blood 130 mg/dL (70-99); Potassium, Blood 4.2 mmol/L (3.5-5.5); Sodium, Blood 138 mmol/L (136-145)
[2021-08-22 15:02] LABS: Phosphorus, Blood 6.2 mg/dL (2.5-4.9)
[2021-08-22 15:55] LABS: PCO2 Arterial 40.5 mmHg (35-45); PO2 Arterial 69.3 mmHg (80-100)
[2021-08-22 15:56] LABS: pH Blood Arterial 7.14 (7.35-7.45)
--- NOTE | 2021-08-22 16:24 | NUR ---
Spiritual Care Visit. Pt. is unresponsive and on a ventilator. SO and Step Daughter are present and both welcome my visit. Family is unsettled by the rapid decline in Pts. health. Family had plans to dicharge today. Listen Empathetically and facilitate a life review. Family display evidence of understanding the serioius nature of the pts. condition. Establish rapport. Daughter asked me to pray over pt. We joined hands at their prompting and I gave a pastoral blessing. Family disaplayed evidence of catharsis and verbalized gratitude for the prayer and spiritual care visit. I let the ICU desk and family know that I would remain available to them till the end of my shift.
--- NOTE | 2021-08-22 16:38 | NUR ---
Met with family in ICU waiting room. Pt's s/o is very tearful during this meeting. She states she "can't believe all this has happened since this morning". Pt's 2 daughters are also with her, and all are in agreement that pt will return to DNR for the time being; only reverted to Full Code for surgery today. Family is aware pt's prognosis is guarded at this time. They talked a lot about his wishes, and how important it is to patient that his wishes for end of life be upheld. Pt is currrently on ventilator, non-responsive at this time s/p abd surgery. Family is at bedside. They request a call tonight if pt's condition declines.
--- NOTE | 2021-08-22 19:38 | NUR ---
SHIFT SUMMARY: Pt transferred to ICU post ex lap. On arrival pt was started on vasopressin. He was also given 3 liters of LR, 300mls of albumin, vancocin, and zosyn. Arterial line is clean, dry, and intact. ET tube was pulled back from 26 cm to 24 cm by RT. Right quad lumen subclavian was placed by Dr Su. On exam, pt is unresponsive to stimuli without sedation. CT head completed near end of shift. NG tube to low intermittant suction draining brown, malodorous fluid. Pt received unit of platelets.
--- NOTE | 2021-08-22 21:27 | NUR ---
ASSUMED CARE AT 1900 PATIENT HAS A SLIGHT GAG REFLECT WITH DEEP SUCTIONING, GRIMACES TO PAINFUL STIMULI. NO EYE OPENING/MOVEMENT, PUPILS SLUGGISH. NO MOVEMENT OF EXTREMETIES. 02 SATS 93% ON VENT AC VC 16/450/10/65%. RR 16-18. LS CLEAR THROUGHOUT. HR SR @70s-80S WITH PACs. BP WITH MAP >65 ON LEVOPHED AND VASO, TITRATING NEEDED. ART LINE TO RIGHT WRIST. MODERATE PITTING EDEMA TO BLE. KEYS DRAINING CLEAR YELLOW URINE TO GRAVITY. NG TO LIS, BROWN BILE. PATIENT REPOSITIONED. PICTURE OF COCCYX WOUND ADDED TO CHART, AREA CLEANED AND NEW MEPILEX APPLIED.
[2021-08-23 00:57] LABS: Influenza A, PCR NEGATIVE (NEGATIVE); Influenza B, PCR NEGATIVE (NEGATIVE); Resp Syncytial Virus, PCR NEGATIVE (NEGATIVE); SARS-Cov-2 (COVID-19) PCR, MMC NEGATIVE (NEGATIVE)
[2021-08-23 04:11] LABS: Hematocrit 28.9 % (37.0-53.0); Hemoglobin 8.6 g/dL (13.5-17.5); Mean Corpuscular HGB 25.1 pg (26.0-34.0); Mean Corpuscular HGB Conc 29.8 g/dL (31.5-36.5); Mean Platelet Volume 10.1 fL (9.1-12.4); Platelet Count 376 K/mm3 (150-400); RDW Coefficient Variation 17.2 % (11.7-14.2); RDW Standard Deviation 52.4 fL (35.1-46.3); Red Blood Cell Count 3.43 M/mm3 (4.30-5.90); White Blood Cell Count 17.07 K/mm3 (4.00-11.30)
[2021-08-23 04:23] LABS: Mean Corpuscular Volume 84 fL (80-100)
[2021-08-23 04:24] LABS: Alanine Aminotransfer (ALT/SGP 15 U/L (12-78); Albumin, Blood 2.3 g/dL (3.4-5.0); Albumin/Globulin Ratio 1.2 (0.8-1.8); Alk Phos 54 U/L (50-136); Anion Gap 15 mmol/L (6-16); Aspartate Aminotrans (AST/SGOT 20 U/L (12-37); Bilirubin, Total 0.5 mg/dL (0.1-1.0); Blood Urea Nitrogen 28 mg/dL (8-24); Bun/Creatinine Ratio 21.9 (12.0-20.0); CO2, Blood 21 mmol/L (21-32); Calcium, Blood 6.2 mg/dL (8.5-10.1); Chloride, Blood 99 mmol/L (98-108); Creatinine, Blood 1.28 mg/dL (0.60-1.20); Globulin, Blood 1.9 g/dL (2.2-4.0); Glomerular Filtration Rate 53 (60-); Glucose, Blood 266 mg/dL (70-99); Magnesium, Blood 1.3 mg/dL (1.6-2.4); Phosphorus, Blood 3.4 mg/dL (2.5-4.9); Potassium, Blood 3.1 mmol/L (3.5-5.5); Sodium, Blood 135 mmol/L (136-145); Total Protein, Blood 4.2 g/dL (6.4-8.2); Vancomycin, Random 9.1 ug/mL
[2021-08-23 04:53] LABS: BAND PERCENT MAN 35 % (0-8); BASOPHILS PERCENT MAN 0 % (0-2); EOSINOPHILS PERCENT MAN 0 % (0-6); METAMYELOCYTE ABSOLUTE MAN 1.19 K/mm3 (0.00-0.00); METAMYELOCYTE PERCENT MAN 7 % (0-0); MONOCYTES ABSOLUTE MAN 1.19 K/mm3 (0.16-1.47); MONOCYTES PERCENT MAN 7 % (4-13); MYELOCYTE ABSOLUTE MAN 0.34 K/mm3 (0.00-0.00); MYELOCYTE PERCENT MAN 2 % (0-0); NEUTROPHILS ABSOLUTE MAN 14.33 K/mm3 (1.96-9.15); SEG NEUTROPHILS PERCENT MAN 49 % (41-73); TOTAL CELLS COUNTED 100
--- NOTE | 2021-08-23 07:42 | NUR ---
SHIFT SUMMARY PATIENT IS ALERT OPENING EYES, NODS YES/NO TO QUESTIONS, MOVES ALL EXTREMTIES. ABLE TO FOLLOW SIMPLE COMMANDS. 02 SATS >93% ON VENT AC VC 16/450/10/50%, RR 20s. LS CLEAR. NG TO LIS, 100 MLS BROWN BILE THISE SHIFT. HR NOW A.FIB 80s-90s. BP WITH MAP>65 WITH LEVOPHED AND VASO. WOUND VAC IN PLACE, 600 OUT WITH SEROSANGUINOUS FLUID, DRESSING C/D/I. KEYS DRAINING TO GRAVITY, CLEAR YELLOW. NOTIFIED HOSPITALIST OF AM LABS, SEE EMAR FOR ELECTROLYTE REPLACEMENTS. REPOSITIONED Q2 HOURS. FAMILY WAS IN LAST NIGHT TO SEE PATIENT.
--- NOTE | 2021-08-23 08:30 | NUR ---
Assumed care. Pt opens eyes to verbal and pain stimuli. Grimiaces when abdomin is touched slightly. Pupils are reactive slight sluggish. Does nod to yes and no questions. Is able to traffic rate analyst bilaterally. When asked to wiggle toes there was no response. Did respond to family. Gag, cough noted with suctioning. LS clear t/o. AC vent settings 16/450/10/50%. Sats >90%. Cuff leak noted, 1cc placed. RT notified. Suctioned with no results. Oral care provided. Afib on the monitor running in the 80's. ABD distended very tender to palpitations. BT very hypoactive, OG to LIS brown fluid small amounts. Alcaraz patient and draining clear yellow urine. Skin pale, cool to touch. Wound vac to suction 120mmgh, seroussanguous drainage noted. No leak. Dressings to bottom CDI. Skin tear to RFA, open to air, will clean and place dressing. Old incision shook to abdomin open to air, scabbed. He is on several Gtts: Levophed-23mcq; NA Bicarb @ 200ml/hr; NS @ TKO; Vasopressor @ 0.04mcq/hr; Mag. Started Propofol at 10mcq/hr then it was increased to 15mcq. Levo then was decreased to 21mcq/hr. MAP holding at >65. 1 unit of PRBC started, hung CA, another bag of Mag, and gave morning meds. Family already to see the patient. Dr. Su called regarding several orders for Magnesium for clarfication. Dr. Su will address. Will continue to monitor.
[2021-08-23 11:20] LABS: Hematocrit 30.1 % (37.0-53.0); Hemoglobin 9.5 g/dL (13.5-17.5)
--- NOTE | 2021-08-23 11:58 | NUR ---
Patient heading to OR for procedure. All assessments completed prior to transfer.
[2021-08-23 12:02] LABS: Alanine Aminotransfer (ALT/SGP 16 U/L (12-78); Alk Phos 68 U/L (50-136); Anion Gap 16 mmol/L (6-16); Aspartate Aminotrans (AST/SGOT 35 U/L (12-37); Bilirubin, Total 0.7 mg/dL (0.1-1.0); Blood Urea Nitrogen 24 mg/dL (8-24); Bun/Creatinine Ratio 21.8 (12.0-20.0); CO2, Blood 23 mmol/L (21-32); Calcium, Blood 6.4 mg/dL (8.5-10.1); Chloride, Blood 94 mmol/L (98-108); Glomerular Filtration Rate >60 (60-); Glucose, Blood 300 mg/dL (70-99); Phosphorus, Blood 4.4 mg/dL (2.5-4.9); Potassium, Blood 3.6 mmol/L (3.5-5.5); Sodium, Blood 133 mmol/L (136-145)
--- NOTE | 2021-08-23 12:41 | NUR ---
08/23/21 1241 Brayan Houser PT ON SCHEDULED ANTIBIOTICS
--- NOTE | 2021-08-23 13:45 | NUR ---
Pt arrived from OR. Pt was given a paralytic according to rac specialist. See Pipe Coremaker notes. Propofol still infusing at 15mcq/kg/hr. Pupils very sluggish. Lungs are still clear, Placed back on Vent with previous settings of AC 16/450/10/50%. Sats >90%. Afib with some venticular beats on monitor 90-110's. Abdomin midline incision w/ REFUGIO dressing intact. right quadrant ileostomy, stoma pink, round, new appliance intact. BT absent. Dressing to right lower quadrant with scant amount intact. According to OR nurse there are stitches underneath, and emelia under midline drainage. ABELARDO drainage with serousangous drainage, bulb emptied and suctioned. Cath patent and still draining. Repositioned. Gtt's. Levophed at 20mcq. NS -TKO. Bicarb still infusing. Will Continue to monitor.
--- NOTE | 2021-08-24 00:13 | NUR ---
ASSUMED CARE AT 1900 PATIENT RESPONDS TO TOUCH, OPENS EYES AND LOCALIZES TO PAIN. MOVEMENT IN ALL EXTREMETIES. UNABLE TO NOD YES/NO OR FOLLOW COMMANDS. PUPILS REACTIVE. SEDATED WITH PROPOFOL AND FENTANYL FOR PAIN. 02 SATS 95% ON VENT AC VC 16/450/10/50%. LS CLEAR T/O. SCANT AMOUNT OF THIN WHITE SPUTUM. NG TO LIS, MODERATE AMOUNT OF BROWN BILE DRAINING. HR SR @80s. BP WITH MAP >65 ON LEVOPHED AND VASO, ABLE TO TITRATE LEVOPHED DOWN, ART LINE PATENT. SURGICAL DRESSING WITH REFUGIO DRAIN TO MID ABD C/D/I, ABELARDO DRAIN TO LEFT ABD DRAINING, DRESSING C/D/I. OSTOMY WITH LIGHT BROWN LIQUID STOOL OUTPUT. IV NUTRITION INF. ELECTROLYTE REPLACEMENTS GIVEN, SEE EMAR. KEYS DRAINING CLEAR YELLOW. REPOSITONED Q2 HOURS. FAMILY UPDATED ON PATIENT CONDITION. SEE SHIFT ASSESSMENT FOR MORE DETAIL,.
[2021-08-24 05:20] LABS: Hematocrit 26.1 % (37.0-53.0); Hemoglobin 8.4 g/dL (13.5-17.5); Mean Corpuscular HGB Conc 32.2 g/dL (31.5-36.5); Mean Corpuscular Volume 81 fL (80-100); Mean Platelet Volume 10.9 fL (9.1-12.4); Platelet Count 175 K/mm3 (150-400); RDW Coefficient Variation 17.3 % (11.7-14.2); RDW Standard Deviation 50.4 fL (35.1-46.3); Red Blood Cell Count 3.23 M/mm3 (4.30-5.90); White Blood Cell Count 41.23 K/mm3 (4.00-11.30)
[2021-08-24 05:47] LABS: Alanine Aminotransfer (ALT/SGP 19 U/L (12-78); Albumin, Blood 2.7 g/dL (3.4-5.0); Albumin/Globulin Ratio 1.4 (0.8-1.8); Alk Phos 116 U/L (50-136); Anion Gap 13 mmol/L (6-16); Aspartate Aminotrans (AST/SGOT 24 U/L (12-37); Bilirubin, Total 1.3 mg/dL (0.1-1.0); Blood Urea Nitrogen 31 mg/dL (8-24); Bun/Creatinine Ratio 29.5 (12.0-20.0); CO2, Blood 27 mmol/L (21-32); Chloride, Blood 93 mmol/L (98-108); Creatinine, Blood 1.05 mg/dL (0.60-1.20); Glomerular Filtration Rate >60 (60-); Glucose, Blood 162 mg/dL (70-99); Phosphorus, Blood 2.4 mg/dL (2.5-4.9); Potassium, Blood 2.7 mmol/L (3.5-5.5); Sodium, Blood 133 mmol/L (136-145); Total Protein, Blood 4.7 g/dL (6.4-8.2); Triglycerides 160 mg/dL (30-160)
[2021-08-24 05:48] LABS: BAND PERCENT MAN 19 % (0-8); BASOPHILS PERCENT MAN 0 % (0-2); EOSINOPHILS PERCENT MAN 0 % (0-6); LYMPHOCYTES ABSOLUTE MAN 0.41 K/mm3 (0.84-5.20); LYMPHOCYTES PERCENT MAN 1 % (21-46); MONOCYTES ABSOLUTE MAN 0.82 K/mm3 (0.16-1.47); MONOCYTES PERCENT MAN 2 % (4-13); NEUTROPHILS ABSOLUTE MAN 39.99 K/mm3 (1.96-9.15); SEG NEUTROPHILS PERCENT MAN 78 % (41-73); TOTAL CELLS COUNTED 100
--- NOTE | 2021-08-24 06:44 | NUR ---
SHIFT SUMMARY PATIENT RESPONDS TO TOUCH, OPENING EYES AND TRACKING. UNABLE TO FOLLOW COMMANDS, LOCALIZES TO PAIN AND MOVES ALL EXTREMETIES. SEDATED ON PROPOFOL. 02 SATS 96% ON VENT AC VC 16/450/10/50%. LS CLEAR. HR SR @80s. BP WITH MAP >65 ON LEVOPHED AND VASO. MID ABD SURGICAL DRESSING C/D/I. ABELARDO DRAIN WITH SEROSANGUINOUS OUTPUT. OSTOMY WITH LIQUID LIGHT BROWN OUTPUT. NG TO LIS, BROWN BILE. KEYS DRAINING CLEAR YELLOW 1200 OUT THIS SHIFT. FENTANYL PROVIDED FOR PAIN. BEDBATH DONE. PATIENT REPOSITIONED Q2 HOURS. COMPRESSION DEVICE ON BLE. CALL TO HOSPITALIST FOR ELECTROLYTE REPLCEMENT.
--- NOTE | 2021-08-24 07:30 | NUR ---
ASSUMED CARE: PT RESTING QUIETLY, INTUBATED AND SEDATED WITH PROPOFOL AT 25 MCG/KG. LEVOPHED AT 15MCG/KG AND VASOPRESSIN RUNNING WELL. CPN PER DIETARY ORDERS. OG IN PLACE WITH GREEN BILE BEING SUCTIONED. KEYS CATH IN PLACE WITH CLEAR YELLOW URINE. BILATERAL WRIST RESTRAINTS IN PLACE, AT BEDSIDE.
--- NOTE | 2021-08-24 08:00 | NUR ---
ISTRATE CALLED TO INSTRUCT NURSES ON ELECTROLYTE ORDERS. STATED TO GIVE KCL AND CALCIUM FIRST THEN KPHOS. MEDS TO BE ADMINISTERED SUCH
--- NOTE | 2021-08-24 08:00 | NUR ---
Assumed Care. Pt opened up eyes to pain and response to voice. Turned head towards only. Gripped on left only, no further moter movements. Pupils are pinpoint, brisk reaction. Gag and weak cough with suction. Propofol @ 20mcq. LS Clear t/o. AC Vent settings: 16/450/10/50%. ETT Tube: 01/16 at lips. RT suctioned and got rivers thick pink tinged sputum. Sent to lab. Oral suction minimal thick cream color. Afib on monitor rate in the 70's. Dependent pitting edema all over, greater in the trunk/hip/abdomin region. ART line with MAP>65. On Levo @15, Vaso @ 0.04. Abdomin moderate distention. BT hypoactive. NGT to LIS brown liquid drainage. Tender to palpate. Mid line incision with REFUGIO vac intact, seal acheived. two small scant spots noted on dressing. RLQ dressing with marked drainage that has unchanged since yesterday. ABELARDO bulb found under patient which caused dressing to become saturated. Changed dressings. Bulb drained several times since changed. Bruises scattered across abdomin from 1st surgery and there forth. Coccyx dressing intact, wound is healing. Ostomy emptied 200ml of brown liquid, stoma pink and round. Alcaraz patent, clear yellow urine. Central line CDI with CPN @ 70ml/hr, NS at TKO. Potassium started. Will continue to monitor.
--- NOTE | 2021-08-24 09:07 | NUR ---
DR LOPES CAME TO CHECK IN ON PT AND STAFF MADE HIM AWARE OF SPUTUM SAMPLE THAT WAS ASPIRATED FROM ETT. DR INSTRUCTED FOR CULTURE TO BE SENT. RN ATTEMPTED TO CONTACT DR KEENAN IN REGARDS TO PRBC ORDER. VOICE MAIL LEFT. SPOKE WITH DR LOPES WHO INSTRUCTED TO HOLD UNIT OF BLOOD AND RECHECK H AND H THIS AFTERNOON.
--- NOTE | 2021-08-24 12:00 | NUR ---
Dr. Mcnair and Dr. Owens have been in to see the patient. RT decreased PEEP to 8 and FIO2 down to 40%. Sats have maintained >93%. Blood sugar 155. Emptied another 60cc out of ABELARDO, serous fluids. All dressings are holding. No chagnes in assessments.
--- NOTE | 2021-08-24 13:07 | NUR ---
Spiritual Care Visit Filled out the "Things We Care to Know..." survey with Pt. GEN Patel. Will post in room.
--- NOTE | 2021-08-24 13:22 | NUR ---
Met with pt's s/o at bedside today. She is tearful, and states she is definitely feeling "tired and overwhelmed". She said part of her wants to just go home, but she states she can't do that. She also says the fear of the unknown is the worst. Dr. Su talked her her this morning with update on pt's status. No solid plan for update at this time. Will remain available, just sitting with s/o appears to be of great calm to her.
[2021-08-24 15:08] LABS: Hematocrit 25.9 % (37.0-53.0); Hemoglobin 8.3 g/dL (13.5-17.5)
--- NOTE | 2021-08-24 18:47 | NUR ---
SHIFT SUMMARY: PT REMAINS INTUBATED AND SEDATED WITH VENT SETTIGNS AT 16/450/40/8. PROPOFOL AT 15MCG/KG. LEVOPHED RUNNING AT 8MCG/KG AND VASOPRESSIN INFUSING. OG IN PLACE WITH GREEN SECRETIONS BEING SUCTIONED. OSTOMY PUTTING OUT GREEN/BROWN LIQUID. OSTOMY STOMA IS BRIGHT PINK. PT'S ABDOMEN REMAINS TENDER WITH HYPOACTIVE BOWEL TONES. KEYS CATH IN PLACE WITH CLEAR YELLOW URINE. PERIPHERAL EDEMA OF 2-3+ NOTED BILATERAL ARMS AND LEGS. SCDS IN PLACE. MEDICATED X2 FOR PAIN.
--- NOTE | 2021-08-24 19:00 | NUR ---
ASSUMED CARE ASSUMED CARE OF PATIENT. REMAINS INTUBATED- AC/VC/16/450/8/40%. RR 16. SEDATED WITH PROPOFOL AT 15MCG/KG/MIN. ATTEMPTS TO OPEN EYES TO VERBAL STIMULI. MOVES ALL EXTREMITIES WEAKLY AND FOLLOWS SIMPLE COMMANDS. MONITOR SHOWS NSR WITH PACs, RATE 70s. LEVPHED AT 8MCG/MIN AND VASOPRESSIN AT 0.04UNITS/ MIN TO MAINTAIN MAP >65. LR INFUSING AT 75CC/HR PER ORDER. CPN AT 80CC/HR PER ORDER. RIGHT RADIAL ARTERIAL LINE INTACT. RSC CL NOTED. NG TO RIGHT NARES- LIS WITH GREENISH-BROWN DRAINAGE. MIDLINE ABDOMINAL DRSG WITH REFUGIO DRAIN INTACT- SMALL AMOUNT OF OLD BLOOD NOTED. ABELARDO DRAIN TO LEFT ABDOMEN- SEROSANGUINOUS DRAINAGE. ILEOSTOMY INTACT TO RIGHT ABDOMEN- DRAINING LIQUID BROWN STOOL. KEYS PATENT AND DRAINING TO GRAVITY. SEE SHIFT ASSESSMENT FOR FULL ASSESSMENT.
[2021-08-24 19:21] LABS: Albumin, Blood 3.2 g/dL (3.4-5.0); Anion Gap 6 mmol/L (6-16); Blood Urea Nitrogen 40 mg/dL (8-24); CO2, Blood 30 mmol/L (21-32); Calcium, Blood 7.5 mg/dL (8.5-10.1); Chloride, Blood 96 mmol/L (98-108); Glomerular Filtration Rate >60 (60-); Glucose, Blood 169 mg/dL (70-99); Phosphorus, Blood 2.4 mg/dL (2.5-4.9); Potassium, Blood 2.9 mmol/L (3.5-5.5); Sodium, Blood 132 mmol/L (136-145)
[2021-08-25 04:49] LABS: Hematocrit 21.8 % (37.0-53.0); Hemoglobin 6.9 g/dL (13.5-17.5); Mean Corpuscular HGB 25.7 pg (26.0-34.0); Mean Corpuscular HGB Conc 31.7 g/dL (31.5-36.5); Mean Corpuscular Volume 81 fL (80-100); Platelet Count 75 K/mm3 (150-400); RDW Coefficient Variation 17.6 % (11.7-14.2); RDW Standard Deviation 51.5 fL (35.1-46.3); Red Blood Cell Count 2.69 M/mm3 (4.30-5.90)
[2021-08-25 05:23] LABS: Alanine Aminotransfer (ALT/SGP 14 U/L (12-78); Albumin, Blood 2.7 g/dL (3.4-5.0); Albumin/Globulin Ratio 1.5 (0.8-1.8); Alk Phos 145 U/L (50-136); Anion Gap 9 mmol/L (6-16); Aspartate Aminotrans (AST/SGOT 18 U/L (12-37); Bilirubin, Total 1.5 mg/dL (0.1-1.0); Blood Urea Nitrogen 41 mg/dL (8-24); Bun/Creatinine Ratio 42.2 (12.0-20.0); CO2, Blood 29 mmol/L (21-32); Calcium, Blood 7.1 mg/dL (8.5-10.1); Chloride, Blood 95 mmol/L (98-108); Creatinine, Blood 0.97 mg/dL (0.60-1.20); Globulin, Blood 1.8 g/dL (2.2-4.0); Glomerular Filtration Rate >60 (60-); Glucose, Blood 151 mg/dL (70-99); Magnesium, Blood 1.9 mg/dL (1.6-2.4); Phosphorus, Blood 3.3 mg/dL (2.5-4.9); Potassium, Blood 2.8 mmol/L (3.5-5.5); Sodium, Blood 133 mmol/L (136-145); Total Protein, Blood 4.5 g/dL (6.4-8.2)
[2021-08-25 05:33] LABS: C-REACTIVE PROTEIN, EXT RANGE >19.000 mg/dL (0.000-0.300)
[2021-08-25 05:34] LABS: BAND PERCENT MAN 3 % (0-8); BASOPHILS PERCENT MAN 0 % (0-2); EOSINOPHILS PERCENT MAN 0 % (0-6); LYMPHOCYTES ABSOLUTE MAN 1.38 K/mm3 (0.84-5.20); LYMPHOCYTES PERCENT MAN 6 % (21-46); MONOCYTES PERCENT MAN 0 % (4-13); NEUTROPHILS ABSOLUTE MAN 21.62 K/mm3 (1.96-9.15); SEG NEUTROPHILS PERCENT MAN 91 % (41-73); TOTAL CELLS COUNTED 100
--- NOTE | 2021-08-25 06:35 | NUR ---
SHIFT SUMMARY NO ACUTE CHANGES. REMAINS INTUBATED- VENT SETTINGS UNCHANGED. SEDATED WITH PROPOFOL AT 15MCG/KG/MIN. CONTINUES TO FOLLOW SIMPLE COMMANDS. OCCASIONALLY NODS HEAD YES/NO. BILATERAL SOFT WRIST RESTRAINTS IN PLACE TO PREVENT SELF-EXTUBATION. MEDICATED WITH DILAUDID 0.5MG IV X 2 DOSES FOR PAIN. LEVOPHED BETWEEN 5-8MCG/MIN- NOW INFUSING AT 5MCG/MIN. VASOPRESSIN CONTINUES AT 0.04UNITS/MIN. LR INFUSING AT 75CC/HR. CPN INFUSING AT 80CC/HR. RIGHT RADIAL ART LINE INTACT, ZEROED. RSC LINE PATENT, DRSG D/I. NG TO LIS WITH 200CC BILE DRAINAGE. LEFT ABDOMEN ABELARDO INTACT. ILEOSTOMY TO RLQ- DRAINING LIQUID BROWN DRAINAGE. REFUGIO DRSG INTACT. KEYS PATENT AND DRAINING TO GRAVITY. PT RECEIVED 30MMOL KPHOS AND 1GM CALCIUM GLUCONATE DURING SHIFT. TO RECEIVE ADDITIONAL 40mEq POTASSIUM THIS AM AND ANOTHER GRAM OF CALCIUM GLUCONATE. ALSO TO RECEIVE 1 UNIT PRBC WHEN AVAILABLE. WILL REPORT TO ONCOMING RN WHEN AVAILABLE.
--- NOTE | 2021-08-25 11:54 | NUR ---
AM NOTE... ASSUMED CARE OF PT AT 0700, THE PT IS INTUBATED AND SEDATED WITH PROPOFOL RUNNING AT 15MCG/KG, THE PT RESPONDS TO PAINFUL STIMULI BUT QUICKLY FALLS BACK ASLEEP. THE PT'S ET TUBE IS 8.0 AND 23 AT THE GUMS. THE PT'S VENT SETTINGS ARE AC/VC:16/450/8/40% WITH O2 SATS >90% L/S COARSE IN THE UPPER AND MID RIGHT LOBE DIM IN THE LOWER LOBES. THE PT IS ON LEVOPHED RUNNING AT 5MCG/MIN WITH MAPS >65, VASOPRESSIN RUNNING AT 0.04 UNITS/HR. THE PT'S ART LINE IS C/D/I IN THE RIGHT RADIAL ARTERY. THE PT IS IN SR W/PACs IN THE 60'S. THE PT HAS 2+ PITTING EDEMA TO HIS BLE, DEPENDENT EDEMA NOTED TO HIS BUE. THE PT HAS A PICCO DRAIN TO THE MIDLINE INCISION, THIS RN NOTED THE PICCO DRAIN DOES NOT HAVE ANY SUCTION, PROVIDER IS AWARE, VERBAL ORDERS TO CHANGE THE PICCO DRESSING OBTAINED. THE PT HAS A ABELARDO DRAIN TO THE LEFT ABD THAT IS DRAINING LARGE AMOUNTS OF SEROUS FLUID. THE PT'S STOMA IS DRAINING BROWN LIQUID STOOL. BT PRESENT AND VERY HYPOACTIVE, ABD HAS MODERATE DISTENTION IS SLIGHTLY FIRM AND VERY TENDER TO PALPATION. THE PT'S KEYS IS PATENT AND DRAINING TO GRAVITY. PROVIDER AT THE BEDSIDE TO ASSESS THE PT, NEW ORDERS FOR LASIX 80MG IV, ANOTHER DOSE OF POTASSIUM CHLORIDE 40MEQS. THE PT IS CURRENTLY GETTING 1 UNITS OF PRBCs. THE PT'S S.O. WAS AT THE BEDSIDE THIS AM, SHE WAS UPDATED BY THIS RN AND DR. KEENAN. WILL CONTINUE TO MONITOR.
[2021-08-25 12:46] LABS: Vancomycin, Trough 9.4 ug/mL (5.0-10.0)
--- NOTE | 2021-08-25 18:38 | NUR ---
SHIFT SUMMARY.... THE PT'S LEVOPHED HAS BEEN OFF SINCE APROX 1300, THE PT'S BPs HAVE BEEN SOFT BUT STABLE WITH MAPS>60-65 WITH SBPs >90. THE PT HAS BEEN RESPONDING TO PAINFUL STIMULI AND OPENING HIS EYES, HE IS ABLE TO NOD "YES" OR "NO" TO QUESTIONS. THE PT'S ABD DRESSING WAS CHANGED PER 'S REQUEST, THE JENNIFER AND THE SITE ARE ALL C/D/I, NO SWELLING OR BLEEDING NOTED TO THE SITE. THE PICCO DRESSING WAS CHANGED BY THIS RN BUT SUCTION IS STILL NOT WORKING WELL, DR. KEENAN NOTIFIED AND IS OKAY WITH THIS AT THIS TIME. THE PT'S OSTOMY HAS PUT OUT 350MLS OF DARK BROWN LIQUID STOOLS. THE PT'S KEYS IS PATENT AND DRAINING CLEAR YELLOW URINE TO GRAVITY. THE PT'S S/O HAS BEEN AT THE BEDSIDE MOST OF THIS SHIFT. THE PT GOT ONE UNIT OF PRBCs WITHOUT ANY ISSUE. THE PT HAS BEEN TURNED Q2 HRS THIS SHIFT. WILL CONTINUE TO MONITOR UNTIL REPORT IS GIVEN TO ONCOMING RN.
--- NOTE | 2021-08-25 19:57 | NUR ---
ASSUMED PT CARE AT 1915 PT INTUBATED AND SEDATED. PROPOFOL AT 15MCG/KG/MIN. VENT SETTINGS: AC/VC 16, VT 450, PEEP 8, FIO2 40%. RR 20'S. SPO2 >90%. ART LINE TO RIGHT RADIAL SITE THAT HAS BEEN ZERO'D WITH TRANSDUCER AT PHLEBOSTATIC AXIS; GOOD PERFUSION TO RIGHT HAND WITH GOOD PLETH. CENTRAL LINE TO RIGHT SUBCLAVIAN SITE. TPN INFUSING AT 75ML/HR, WELL POTASSIUM REPLACEMENT INFUSING. PT HAS A MID ABDOMINAL INCISION WITH A CLEAN AND DRY DRESSING. ILEOSTOMY SITE TO RLQ WITH BROWN LIQUID OUTPUT. ABELARDO DRAIN TO LLQ PUTTING OUT SEROSANGUINEOUS DRAINAGE. KEYS CATHETER IS PATENT AND DRAINING TO GRAVITY. SEE SHIFT SUMMARY FOR FURTHER DETAILS.
--- NOTE | 2021-08-25 21:30 | NUR ---
CALL MADE OUT TO DR. MENARD CLARIFIED GIVING HEPARIN DESPITE LOW PLATELETS THAT HAVE SIGNIFICANTLY DROPPED OVER THE LAST COUPLE OF DAYS. ORDERS TO GIVE AND WILL REASSESS PLATELET DROP IN THE AM. ALSO ASKED ABOUT ELECTROLYTE REPLACEMENT PROTOCOL D/T RECENT POTASSIUM REPLACEMENTS; WITH THE OKAY TO UTILIZE PROTOCOL FOR REPLACEMENT.
[2021-08-26 04:00] LABS: Hematocrit 24.6 % (37.0-53.0); Mean Corpuscular HGB 26.1 pg (26.0-34.0); Mean Corpuscular HGB Conc 32.5 g/dL (31.5-36.5); Mean Corpuscular Volume 80 fL (80-100); Platelet Count 52 K/mm3 (150-400); RDW Coefficient Variation 17.8 % (11.7-14.2); Red Blood Cell Count 3.07 M/mm3 (4.30-5.90); White Blood Cell Count 11.57 K/mm3 (4.00-11.30)
[2021-08-26 04:14] LABS: Anion Gap 8 mmol/L (6-16); Blood Urea Nitrogen 61 mg/dL (8-24); Bun/Creatinine Ratio 53.5 (12.0-20.0); CO2, Blood 29 mmol/L (21-32); Calcium, Blood 7.4 mg/dL (8.5-10.1); Chloride, Blood 102 mmol/L (98-108); Creatinine, Blood 1.14 mg/dL (0.60-1.20); Glomerular Filtration Rate >60 (60-); Glucose, Blood 130 mg/dL (70-99); Magnesium, Blood 1.9 mg/dL (1.6-2.4); Phosphorus, Blood 2.5 mg/dL (2.5-4.9); Potassium, Blood 3.5 mmol/L (3.5-5.5); Sodium, Blood 139 mmol/L (136-145)
[2021-08-26 05:28] LABS: BAND PERCENT MAN 10 % (0-8); BASOPHILS PERCENT MAN 0 % (0-2); EOSINOPHILS PERCENT MAN 0 % (0-6); LYMPHOCYTES ABSOLUTE MAN 0.23 K/mm3 (0.84-5.20); LYMPHOCYTES PERCENT MAN 2 % (21-46); MONOCYTES ABSOLUTE MAN 0.23 K/mm3 (0.16-1.47); MONOCYTES PERCENT MAN 2 % (4-13); SEG NEUTROPHILS PERCENT MAN 86 % (41-73); TOTAL CELLS COUNTED 100
--- NOTE | 2021-08-26 06:03 | NUR ---
END OF SHIFT SUMMARY NO SIGNIFICANT CHANGES. PT REMAINS ON PROPOFOL AT 15MCG/KG/MIN. VENT SETTINGS: AC/VC 16, VT 450, PEEP 8, FIO2 30%, RR 16-20'S. SPO2 >90%. 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 ARTERIAL LINE TO RIGHT RADIAL SITE HELD UP UNTIL THE END OF THE SHIFT WHERE THE PLETH BECAME POOR, AND THE SQUARE WAVE FORM TEST WAS OVERDAMPED; ORDERS OBTAINED TO PULL LINE. TR BAND PLACED OVER AREA FOR 15 MINUTES D/T HIGH RISK OF BLEEDING SECONDARY TO LOW PLATELETS. NO OOZING OR HEMATOMA NOTED; SITE COVERED WITH TEGADERM AFTER BEING CLEANSED WITH CHLORAPREP. DRESSING TO MIDLINE INCISION REMAINS CDI WITH NO DRAINAGE NOTED. DRESSING CHANGED TO ABELARDO SITE D/T DRESSING BEING SATURATED IN YELLOW/GREEN DRAINAGE. ABELARDO DRAIN REMAINS PUTTING OUT COPIOUS AMOUNTS OF SEROSANGUINEOUS/YELLOW DRAINAGE. DRESSING TO RLQ ALSO CHANGED D/T DRESSING BEING SATURATED; JENNIFER REMAIN IN PLACE AND INCISION WELL APPROXIMATED; NEW ADHESIVE DRESSING PLACED. ILEOSTOMY SITE CONTINUES PUTTING OUT BROWN LIQUID OUTPUT. PT REMAINS VERY TENDER TO ABDOMEN WITH TENSION AND GUARDING NOTED DURING PALPATION; MEDICATED WITH DILAUDID X2 THIS SHIFT WITH GOOD EFFECT. CENTRAL LINE TO RIGHT SUBCLAVIAN SITE HAS TPN INFUSING AT 70MLS/HR AND PROPOFOL AT 15MCG/KG/MIN. NG PUTTING OUT DARK GREEN/BROWN OUTPUT TO CANISTER. BOWEL TONES REMAIN HYPOACTIVE. PT REMAINS VERY EDEMATOUS TO SCROTUM AND BLE'S. WILL CONTINUE TO MONITOR UNTIL REPORT IS HANDED OFF TO ONCOMING RN.
--- NOTE | 2021-08-26 07:07 | NUR ---
TOOK OVER CARE OF PT AT 0700, PT VENTED ON AC/VC 16/450/30%/8, PROPOFOL AT 15, TPN INFUSIING AT ORDERED RATE
--- NOTE | 2021-08-26 08:09 | NUR ---
BG 112, PT GIVEN SNACK
--- NOTE | 2021-08-26 11:33 | NUR ---
1130: RT AT BEDSIDE TO INITIATE SBT.
--- NOTE | 2021-08-26 14:25 | NUR ---
PT EXTUBATED BY RT, PLACED ON 4LNC
--- NOTE | 2021-08-26 18:11 | NUR ---
SUMMARY NOT GIVEN HEPARIN TODAY DT PLATLET DROP, HIT LAB SENT OUT. NEURO; PT FOLLOWING COMMANDS AND SPEAKING WEAKLY WITH A RASPY VOICE. TONAWANDA. PUPILS EQUAL. GENERALIZED WEAKNESS. CARDIAC; HX A FIB, HR 60-70'S. DEPENDENT EDEMA LUNGS; RHONCHI INTERMITTENTLY ON UPPER LOBES, USED FLUTTER VALVE AND PULLING 1500 ON INCENTIVE SPIROMETER. ON 4L NC. PT WEARS CPAP AT HOME. SKIN; PT SATURATING ABELARDO DRESSING, WEEPING AT ACCESS SITES. BRUISING SCATTERED. GI/; NG PLACED TO LIWS, DARK GREEN OUTPUT. KEYS IN PLACE WITH APPROX. 100ML/HR OUTPUT, DARK YELLOW.
--- NOTE | 2021-08-26 19:55 | NUR ---
ASSUMED PT CARE AT 1915 PT EXTUBATED AND AWAKE. DIFFICULT TO ASSESS MENTATION D/T PT ONLY BEING ABLE TO GIVE ONE WORDED RESPONSES. HOWEVER, PT FOLLOWS COMMANDS, TRACKS, AND NODS HEAD YES/NO APPROPRITELY TO QUESTIONS. COUGH IS WEAK, BUT PT IS ABLE TO GET SECRETIONS UP ENOUGH TO GET OUT WITH DEEP SUBGLOTTIC SUCTIONING. ORAL CARES PROVIDED. PT AT 4L NC WITH SPO2 >90%. PT IS IN A FIRST DEGREE AV BLOCK WITH RATE 80'S WITH OCCASIONAL PAC'S. BP'S STABLE AT THIS TIME, SEE FLOWSHEET. TPN INFUSING AT 70MLS/HR AND NS TKO VIA RIGHT SUBCLAVIAN CENTRAL LINE. MID ABDOMINAL INCISION REMAINS WITH DRESSING IN PLACE THAT IS CDI. ILEOSTOMY PUTTING OUT LIQUID BROWN STOOL. RLQ INCISION HAS A DRESSING THAT IS CDI. ABELARDO DRAIN TO R QUADRANT CONTINUES TO PUT OUT MODERATE AMOUNTS OF SEROSANGUINEOUS DRAINAGE WITH DRESSING THAT REMAINS CDI. KEYS CATHETER IS PATENT AND DRAINING TO GRAVITY. SEE SHIFT SUMMARY FOR FURTHER DETAILS.
--- NOTE | 2021-08-26 22:07 | NUR ---
DRESSING CHANGES ILEOSTOMY HAD LEAKED UNDER ALL ABDOMINAL DRESSINGS. THEREFORE, MIDLINE DRESSING REMOVED; INCISION CLEANSED WITH WOUND CLEANSER AND PATTED DRY, NEW DRY ADHESIVE SURGICAL DRESSING PLACED. RLQ DRESSING WAS ALSO SATURATED IN STOOL; HOWEVER, INCISION DIDN'T HAVE ANY DRAINAGE; THEREFORE, TEGADERM PLACED OVER INCISION TO PREVENT STOOL LEAKAGE TO AREA AGAIN. NEW ILEOSTOMY DEVICE PLACED. SURROUNDING SKIN WAS EXCORIATED AND FRAGILE. APPLIED SKIN BARRIER TO SURROUNDING TISSUE TO PREVENT FURTHER BREAKDOWN OF AREA. STOMA REMAINS PINK AND MOIST WITH APPLIANCE INTACT. DRESSING CHANGED TO COCCYX WELL. FOAM DRESSING APPEARS TO BE TOO HARSH TO TISSUE AND IT CAUSED AREA TO START BLEEDING. APPLIED CALCIUM ALGINATE INSTEAD AND COVERED WITH DRY ADHESIVE BORDER GAUZE DRESSING. ENTERED NURSING ORDERS REGARDING CHANGING DRESSING TO COCCYX WOUND.
[2021-08-27 04:20] LABS: Hematocrit 28.4 % (37.0-53.0); Mean Corpuscular HGB 25.7 pg (26.0-34.0); Mean Corpuscular HGB Conc 31.7 g/dL (31.5-36.5); Mean Corpuscular Volume 81 fL (80-100); Platelet Count 64 K/mm3 (150-400); RDW Coefficient Variation 18.6 % (11.7-14.2); RDW Standard Deviation 54.3 fL (35.1-46.3); White Blood Cell Count 11.62 K/mm3 (4.00-11.30)
[2021-08-27 04:36] LABS: Anion Gap 6 mmol/L (6-16); Blood Urea Nitrogen 54 mg/dL (8-24); CO2, Blood 31 mmol/L (21-32); Calcium, Blood 7.8 mg/dL (8.5-10.1); Chloride, Blood 106 mmol/L (98-108); Glomerular Filtration Rate >60 (60-); Glucose, Blood 135 mg/dL (70-99); Phosphorus, Blood 2.7 mg/dL (2.5-4.9); Sodium, Blood 143 mmol/L (136-145)
--- NOTE | 2021-08-27 04:50 | NUR ---
END OF SHIFT SUMMARY PT IS MORE ALERT AND ABLE TO ANSWER QUESTIONS. CONFUSED TO PLACE, TIME, AND SITUATION. VERY FORGETFUL. ABLE TO ANSWER QUESTIONS APPROPRIATELY. VOICE REMAINS HOARSE, BUT ABLE TO MAKE NEEDS KNOWN. PT HAS HAD A PRODUCTIVE COUGH REQUIRING INTERMITTENT DEEP SUBGLOTTIC SUCTIONING WITH THICK [place]/YELLOW SECRETIONS WITH STREAKS OF BLOOD NOTED WELL. LUNG SOUNDS CLEARED AFTER COUGHING AND SUCTIONING. OXYGEN REQUIREMENTS AT 6L VIA NC. PT HAS BEEN NOTED TO BE IN A FIRST DEGREE AV BLOCK WITH PAC'S AND PVC'S. ABDOMEN REMAINS TENDER AND GUARDED; BOWEL TONES PRESENT. OUTPUT TO ILEOSTOMY REMAINS UNCHANGED. ALL DRESSINGS REMAIN CDI. OUTPUT TO ABELARDO DRAIN HAS DECREASED SIGNIFICANTLY COMPARED TO LAST NIGHTS SHIFT. PT MEDICATED FOR PAIN X3 THIS SHIFT WITH GOOD EFFECT. TPN REMAINS INFUSING AT 70ML/HR VIA CENTRAL LINE TO RIGHT SUBCLAVIAN SITE. EKYS CATHETER REMAINS PATENT AND DRAINING TO GRAVITY. WILL CONTINUE TO MONITOR UNTIL REPORT IS HANDED OFF TO ONCOMING RN.
[2021-08-27 05:28] LABS: BAND PERCENT MAN 12 % (0-8); BASOPHILS PERCENT MAN 0 % (0-2); EOSINOPHILS PERCENT MAN 0 % (0-6); LYMPHOCYTES ABSOLUTE MAN 0.92 K/mm3 (0.84-5.20); LYMPHOCYTES PERCENT MAN 8 % (21-46); MONOCYTES ABSOLUTE MAN 0.92 K/mm3 (0.16-1.47); MONOCYTES PERCENT MAN 8 % (4-13); NEUTROPHILS ABSOLUTE MAN 9.76 K/mm3 (1.96-9.15); SEG NEUTROPHILS PERCENT MAN 72 % (41-73); TOTAL CELLS COUNTED 100
--- NOTE | 2021-08-27 07:16 | NUR ---
TOOK OVER CARE OF PT AT 0700, PT RESTING ON 4L NC
--- NOTE | 2021-08-27 18:13 | NUR ---
SUMMARY NEURO; PT FOLLOWIG COMMANDS, A/O TO SELF AND FAMILY ONLY. REORIENTED X4 THROUGHOUT. EQUAL STRENGTH THROUGHOUT, NO DRIFT IN BUE. CARDIAC; AFIB, DEPENDENT EDEMA LUNGS; RHONCHI UPPER LOBES, FREQUENT NT/OT SUCTIONING. INCENTIVE SPIROMETRY IS ONLY 500 TODAY, FLUTTER VALVE ALSO USED FREQUENTLY. REQUESTED BIPAP FROM RT. SKIN; DRESSINGS IN TACT AND CHANGED TODAY, HARD REDNESS AROUND ABELARDO- AWARE. MIDLINE INCISION IS WEEPING COPIOUS AMOUNTS, CONCERN FOR MACERATION IF CONTINUES, EDGES APPROXIMATED BUT RED AND NOT ATTACHING- APPLIED IODINE AND VASELINE GAUZE UNDER ISLAND DRESSING. SKIN AROUND COCCYX WOUND IS MACERATED, APPLIED NEW ALGINATE ON WOUND AND SKIN PREP BARRIER ON HEALTHY TISSUE. BLISTER/ EXCORIATION UNDER OSTOMY APPLIANCE- DID NOT NEED CHANGE TODAY. SCATTERED BRUISING BUE. GI/; DARK GREEN NG AND ILIOSTMY OUTPUT, FATOU URINE WITH OUTPUT APPROX 75-100ML/HR. MISC; OKAY TO START TUBE FEEDS PER SURGERY TEAM, VIDEO PLAYER MECHANIC AND SPEECH CONSULTED, HIT PANEL NOT BACK, NO LOVENOX ORDERED, SCD'S IN PLACE. PT ACTIVE IN PERFORMING ROM WHEN PROMPTED.
--- NOTE | 2021-08-27 19:57 | NUR ---
PT REPORT RECEIVED, SAFETY CHECK COMPLETED, ASSUMED PT CARE. PT LYING SUPINE IN BED ON 4LPM O2 VIA NC. PT ALERT TO VOICE, IS ORIENTED TO SELF ONLY AND ABLE TO FOLLOW COMMANDS WITH EQUAL GEOPHYSICAL DATA TECHNICIAN STRENGTH AND NO DRIFT. PT STATES PAIN BUT IS NOT ABLE TO SPECIFY WHERE WITHOUT CLARIFYING QUESTIONS.
[2021-08-28 04:24] LABS: Mean Corpuscular HGB 26.5 pg (26.0-34.0); Mean Corpuscular HGB Conc 32.1 g/dL (31.5-36.5); Mean Corpuscular Volume 82 fL (80-100); Platelet Count 112 K/mm3 (150-400); RDW Coefficient Variation 19.1 % (11.7-14.2); RDW Standard Deviation 56.7 fL (35.1-46.3); White Blood Cell Count 13.25 K/mm3 (4.00-11.30)
[2021-08-28 04:37] LABS: Mean Platelet Volume 13.2 fL (9.1-12.4)
[2021-08-28 04:42] LABS: Alanine Aminotransfer (ALT/SGP 21 U/L (12-78); Albumin, Blood 1.8 g/dL (3.4-5.0); Albumin/Globulin Ratio 0.6 (0.8-1.8); Alk Phos 154 U/L (50-136); Anion Gap 3 mmol/L (6-16); Aspartate Aminotrans (AST/SGOT 25 U/L (12-37); Bilirubin, Total 0.9 mg/dL (0.1-1.0); Blood Urea Nitrogen 48 mg/dL (8-24); Bun/Creatinine Ratio 51.8 (12.0-20.0); CO2, Blood 32 mmol/L (21-32); Calcium, Blood 7.8 mg/dL (8.5-10.1); Chloride, Blood 114 mmol/L (98-108); Creatinine, Blood 0.93 mg/dL (0.60-1.20); Globulin, Blood 2.9 g/dL (2.2-4.0); Glomerular Filtration Rate >60 (60-); Glucose, Blood 140 mg/dL (70-99); Phosphorus, Blood 2.6 mg/dL (2.5-4.9); Potassium, Blood 3.7 mmol/L (3.5-5.5); Sodium, Blood 149 mmol/L (136-145); Total Protein, Blood 4.7 g/dL (6.4-8.2)
--- NOTE | 2021-08-28 06:12 | NUR ---
SHIFT SUMMERY: PT HAS BEEN ORIENTED TO HIMSELF AND KNOWS HE IS IN THE HOSPITAL WITH CANCER, BUT NOT WHAT CITY HE [place] IN. PT HAS BEEN VERY ANXIOUS THROUT THE NIGHT AND HAS BEEN PAINFUL, DESPITE IV DILAUDED. PT DID BECOME SLIGHTLY DROWSY WITH 1 MG OF IV DILAUDED. PT HAS ASKED FOR FREQUENT ORAL SUCTIONING WITH SOME THICK SECRETIONS WHICH HE WAS ABLE TO COUGH TO HIS HYPOPHARYNX, BUT NOT FULLY EXPECTORATE. PT HAS ONLY SLEPT FOR A A FEW MINUTES AT A TIME ONCE ORE TWICE THROUGHOUT THE WHOLE NIGHT AND HAS OTHERWISE BEEN ANIOUS ABOUT PAIN, THE NEED FOR SUCTION OR ASKING FOR A DRINK OF WATER. PT HAS REMAINED ABLE TO FOLLOW COMMANDS BUT IS CONFUSED AND HAS SHORT TERM MEMORY LOSS. PT HAS DIFFICULTY DISCRIBING OR LOCATING PAIN. DRESSING CHANGED ON THE MIDLINE ABDOMINAL INCISION DUE TO DRAINAGE FROM THE LOWER PORTION OF THE INCISION. THE AREA SUROUNDING THE ABELARDO DRAIN REMIANS REDDENED WITH 150 TOTAL OUT FOR THIS SHIFT.
--- NOTE | 2021-08-28 06:25 | NUR ---
SHIFT SUMMERY: PT INITIALLY OF HFNC AT 60L AND 100% FiO2. PT WAS ASSISTED FROM THE CHAIR TO BED AND PLACED ON CPAP AROUND 2100 WITH SUPPORT PRESSURE OF 16 AND FiO2 70%. PT INITIALLY DROPPED SPO2 TO AROUND 70% BUT RECOVERED QUICKLY WITH CPAP. PT AA&OX4 AND DENIES PAIN BUT DOES ENDORSE WORSENED DYSPNEA WITH EXERTION. PT ALSO STATES ANXIETY RELATED TO THE POSSIBILITY OF BEING INTUBATED AND BEING PLACED ON THE VENTILATOR. AT AROUND 0100 THE CIRCUT BECAME DISCONNECTED FROM THE CPAP MASK AND HIS SPO2 DROPPED TO 58% IN APPROXIMATLY 1 MINUTE AND REQUIRED SEVERAL MINUTES TO RECOVER WITH 100% FiO2. VSS OTHERWISE STABLE AND PT HAS REMIANED ORIENTED THROUGHT THE NIGHT.
--- NOTE | 2021-08-28 07:40 | NUR ---
ASSUMED CARE: REPORT RECEIVED FROM LOGAN Solomon RN. ASSUMED CARE OF THIS PT AT APPROX 0700. ON ASSESSMENT, THE PT IS AWAKE, REQUESTING WATER. PLAN OF CARE FOR THE DAY HAS BEEN DISCUSSED W/ THE PT & HIS . WILL CLARIFY PT's DIETARY STATUS W/ SURGEON DURING AM ROUNDING. LS ARE COARSE IN BASES, PT HAVING OCCASIONAL PRODUCTIVE COUGH W/ MOD AMNTS THICK BOSTON SPUTUM SUCTIONED VIA YAUNKER. CURRENTLY ON 4L NC W/ O2 SATS > 90%. MONITOR SHOWS SR W/ PACs, HR 60-80s, BP STABLE. NGT TO RIGHT NARE ATTACHED TO LIS W/ MOD AMNTS DARK BROWN/ BILE OUTPUT NOTED IN CANISTER & TUBING. PT CURRENTLY NPO. ILEOSTOMY TO RLQ DRAINING DARK BROWN LIQUID STLS. SKIN OVERALL FRAGILE, IN POOR CONDITION. MIDLINE ABDOMINAL INCISION W/ JENNIFER IN PLACE, REDRESSED BY BANK SALES AND SERVICE MANAGER RN FOR LARGE AMNTS SEROUS DRAINAGE NOTED TO DRESSING, CURRENTLY CDI. ABELARDO TO LLQ DRAINING SS OUTPUT, DRESSING CDI. PRESSURE WOUND TO COCCYX IS PARTIAL THICKNESS, DRESSING CDI, PACKED W/ CALCIUM ALGINATE. Q2H REPOSITIONING TO MAINTAIN SKIN INTEGRITY. WILL CONTINUE TO MONITOR & UPDATE NEEDED.
--- NOTE | 2021-08-28 08:50 | NUR ---
DR KEENAN: PROVIDER AT BEDSIDE THIS AM TO [facility] PT. SHE IS OKAY W/ STATUS CHANGE TO PCU, DOES NOT FEEL THE PT IS APPROPRIATE YET FOR SURGICAL FLOOR. SHE PLANS TO CHANGE ABX BASED ON PT's CX GROWTH. CONTINUED C/O PAIN ADDRESSED & ORDERS WILL BE PLACED FOR ROXICODONE ORAL SOLUTION TO BE GIVEN PER NGT. SPEECH THERAPY WALT ORDERED & METAL FABRICATING SUPERVISOR CONSULTATION TO BE ORDERED FOR NUTRITIONAL PURPOSES.
--- NOTE | 2021-08-28 12:35 | NUR ---
TUBE FEEDING: TRICKLE FEEDS INITIATED THROUGH NGT TO RIGHT NARE. INFUSING AT 20 ML/HR W/ 30 ML H2O FLUSH Q4H, PER DIETARY ORDERS. NO PLANS TO ADVANCE. CPN CONTINUES INFUSING UNTIL ENSURING THAT PT WILL TOLERATE ENTERAL FEEDINGS. PT & SPOUSE AWARE TO LET THIS RN KNOW IF THE PT BEGINS EXPERIENCING NAUSEA OR WORSENING ABD PAIN AFTER FEEDS STARTED. ILEOSTOMY CONTINUES PUTTING OUT SMALL AMNT DARK BROWN STLS.
--- NOTE | 2021-08-28 18:12 | NUR ---
SHIFT SUMMARY: NO ACUTE CHANGES SINCE PRIOR UPDATES. PT REMAINS A&O TO SELF, FOLLOWING SOME DIRECTIONS, LOCATION & FAMILY. HE CONTINUES TO BE FORGETFUL, ASKING THE SAME QUESTIONS REPEATEDLY & OCCASIONALLY BECOMING FEARFUL/ ANXIOUS WHEN EXPERIENCING CONFUSION. HE HAS C/O INCREASED ABDOMINAL PAIN W/ ANY MOVEMENTS, PRN MEDS PER EMAR. LS ARE DIM, COARSE IN BASES. PT CONTINUES HAVING A PRODUCTIVE COUGH W/ SMALL AMNTS OF THICK BOSTON SPUTUM ORALLY SUCTIONED W/ YANKAUR. CURRENTLY ON 4L NC W/ O2 SATS > 92%. MONITOR SHOWS SR W/ HR 70-80s, HTN INCREASED W/ PAIN BUT IMPROVED AT REST. NGT IN PLACE TO RIGHT NARE W/ TUBE FEEDS INFUSING PER DIETARY ORDERS, LOW RESIDUAL. ILEOSTOMY TO RLQ DRAINING BROWN LIQUID STLS. KEYS PATENT/ DRAINING YELLOW URINE. SKIN CONDITION OVERALL POOR. MIDLINE INCISION W/ SUTURES INTACT, DRESSING REMAINS CDI. ABELARDO TO LLQ DRAINING SS OUTPUT. DRESSING/ PACKING TO COCCYX REMOVED & AREA CLEANSED, NEW DRESSING PLACED. ABELARDO INSERTION SITE REMAINS INFLAMMED, PROVIDER AWARE. DRAIN SPONGES REMOVED, AREA CLEANSED & NEW DRAIN SPONGES PLACED, SECURED W/ PAPER TAPE. BLISTER TO R AC INTACT, SURROUNDING TISSUE NOTED TO HAVE DEPENDENT WEEPING EDEMA. BLISTER COVERED W/ ABD & CURLEX, BOTH ARMS PLACED ON MAXSORB PADS. Q2H REPOSITIONING TO MAINTAIN SKIN INTEGRITY. WILL CONTINUE TO MONITOR & REPORT OFF TO ONCOMING RN.
[2021-08-29 04:24] LABS: Hematocrit 27.9 % (37.0-53.0); Hemoglobin 8.5 g/dL (13.5-17.5); Mean Corpuscular HGB 26.1 pg (26.0-34.0); Mean Corpuscular HGB Conc 30.5 g/dL (31.5-36.5); Mean Corpuscular Volume 86 fL (80-100); Mean Platelet Volume 12.8 fL (9.1-12.4); Platelet Count 206 K/mm3 (150-400); RDW Coefficient Variation 19.5 % (11.7-14.2); Red Blood Cell Count 3.26 M/mm3 (4.30-5.90)
[2021-08-29 04:50] LABS: Alanine Aminotransfer (ALT/SGP 20 U/L (12-78); Albumin, Blood 1.6 g/dL (3.4-5.0); Albumin/Globulin Ratio 0.6 (0.8-1.8); Alk Phos 145 U/L (50-136); Anion Gap 2 mmol/L (6-16); Aspartate Aminotrans (AST/SGOT 31 U/L (12-37); Bilirubin, Total 0.9 mg/dL (0.1-1.0); Blood Urea Nitrogen 48 mg/dL (8-24); CO2, Blood 31 mmol/L (21-32); Calcium, Blood 7.9 mg/dL (8.5-10.1); Chloride, Blood 118 mmol/L (98-108); Globulin, Blood 2.9 g/dL (2.2-4.0); Glomerular Filtration Rate >60 (60-); Glucose, Blood 117 mg/dL (70-99); Magnesium, Blood 2.4 mg/dL (1.6-2.4); Phosphorus, Blood 3.2 mg/dL (2.5-4.9); Potassium, Blood 4.4 mmol/L (3.5-5.5); Sodium, Blood 151 mmol/L (136-145); Total Protein, Blood 4.5 g/dL (6.4-8.2)
--- NOTE | 2021-08-29 07:17 | NUR ---
SHIFT SUMMERY: PT CONTUNUES TO BE ORIENTED TO SELF AND PLACE WITH CONFUSION AND SHORT TERM MEMORY LOSS. VSS OVER NIGHT. PT PULLED OUT NGT OUT AROUND 0100 AND ORDER WAS RECIEVED FROM DR. WILKS TO PLACE A DOBHOFF, WHICH WAS DONE AND CONFIRMED BY CXR WITH OK TO USE FROM DR. WILKS. PT TOLLERATED TF AT 20 ML/HR. DRESSINGS OF MIDLINE INCISION AND ABELARDO CHANGED WELL A NEW ILEOSTOMY 2 PIECE. THE MIDLINE ABDOMINAL INCISION IS NOW DRAINING PURULANT DRAINAGE AND THE REDNESS HAS INCREASED. THE SKIN SURROUNDING THE ABELARDO DRAIN IS VERY REDDENED AND FIRM TO PALPATION AND PT STATES IS VERY TENDER. PICTURE TAKEN OF MIDLINE INCISION AND PLACED IN CHART.
--- NOTE | 2021-08-29 09:10 | NUR ---
ASSUMED CARE: REPORT RECEIVED FROM Pauly FORD ASSUMED CARE OF THIS PT AT APPROX 0700. ON ASSESSMENT, THE PT IS CALLING OUT FOR "WATER." HE IS NOT REDIRECTABLE & CONTINUES TO YELL OUT DESPITE BEING REMINDED THAT HE CANNOT HAVE REGULAR SIPS OF WATER & BEING PROVIDED NUMEROUS MOIST MOUTH SWABS IN A ROW. LS ARE MORE COARSE THIS AM IN UPPER LOBES, THE PT CONTINUES TO HAVE AN OCCASIONAL COUGH BUT IS NOT EXPECTORATING WELL THIS AM. PT ON 4L NC W/ O2 SATS > 90% ON AVG. DESATS TO 87% NOTED W/ ANXIETY & YELLING OUT. MONITOR SHOWS SR W/ OCCASIONAL PACs, HR 70-80s, BP STABLE. DOBHOFF IN PLACE TO RIGHT NARE W/ TUBE FEEDS OF PIVOT 1.5 INFUSING AT ORDERED RATE 20 ML/HR. ILEOSTOMY PRODUCING MOD AMNTS OF BROWN LIQUID STLS. KEYS PATENT/ DRAINING YELLOW URINE. SKIN CONDITION OVERALL POOR, FRAGILE. MIDLINE ABDOMINAL INCISION INFLAMMED & HAVING PURULENT DRAINAGE SINCE LAST NIGHT. ABELARDO INSERTION SITE TO LLQ W/ REDNESS & INFLAMATION. ABELARDO DRAIN W/ MOD AMNTS SS DRAINAGE NOTED IN BULB. COCCYX WOUND REMAINS WELL DRESSED. WEEPING EDEMA TO BUE W/ DRY-KELLEE PADS IN PLACE. WILL CONTINUE TO MONITOR & UPDATE NEEDED.
--- NOTE | 2021-08-29 10:09 | NUR ---
Spiritual Care Visit Pt. is awake. SO is present and welcomes my visit. Re-establish rapport. Attempt to engage with Pt. Pt. is responsive but difficult to understand. Through theraputic listening and pastoral care we were able to understand that the pt. desires water, but cannot swallow well. Pt. displayed evidence of understanding, and affirming my understanding. Prayed with Pt. and SO. Significant other verbalized gratitude for the spiritual care visit.
--- NOTE | 2021-08-29 11:16 | NUR ---
UDPATE: THIS RN HAS CONTACTED PALLIATIVE CARE RN, BC Peña, & REQUESTED SUPPORT AT BEDSIDE FOR THIS PT & HIS SIGNIFICANT OTHER, RIGOBERTO. THE PT IS INCREASINGLY CONFUSED, IS SPEAKING REPETETIVELY & IS UNABLE TO BE REORIENTED, WHICH IS NEW SINCE YESTERDAY. RIGOBERTO IS VISIBLY UPSET BY THIS CHANGE IN THE PT's CONDITION & DOES NOT KNOW HOW TO HELP HIM. AMADO [facility], CURRENTLY AT BEDSIDE SPEAKING W/ RIGOBERTO.
--- NOTE | 2021-08-29 12:02 | NUR ---
Met with pt and s/o Katrin this morning. Pt's general condition does not appear to be improving. He is currently speaking mostly non-sensical. Katrin has remained at bedside for much of the days. Today she reports she went to the cafeteria, and is going again for lunch at my request. She is hesitant to leave pt even for a moment, and becomes tearful, but she does v/u that she needs time to herself. It also appears to rile pt up with too much stimulation. We briefly discussed the possibiliy that the patient may also not recover. I was able to reach out to pt's daughter Eileen as well. She verbalizes concern for pt's recovery as well. Pt has been unable to pass swallow eval the past 2 days. Will remain available.
--- NOTE | 2021-08-29 13:46 | NUR ---
Spiritual Care Visit with SO Noticed Pts. SO sitting the ICU waiting chairs in hallway. Invited to vist with her. SO was very unsettled by the increase of pts. agitation regarding not being able to drink fluids. Listen empathetically. SO is aware of reasons, but the pt. doesn't understand. SO is cathartic as she communicates her fear and concern for pt. Through theraputic listening SO displays evidence of understanding. SO verbalized gratitude for my stopping by and connecting with her.
[2021-08-29 14:11] LABS: HEPARIN INDUCED PLATELET AB 0.121 OD (0.000-0.400)
[2021-08-29 15:47] LABS: Anion Gap 3 mmol/L (6-16); Blood Urea Nitrogen 46 mg/dL (8-24); Bun/Creatinine Ratio 49.5 (12.0-20.0); CO2, Blood 28 mmol/L (21-32); Calcium, Blood 7.8 mg/dL (8.5-10.1); Chloride, Blood 118 mmol/L (98-108); Creatinine, Blood 0.93 mg/dL (0.60-1.20); Glomerular Filtration Rate >60 (60-); Glucose, Blood 131 mg/dL (70-99); Potassium, Blood 4.5 mmol/L (3.5-5.5); Sodium, Blood 149 mmol/L (136-145)
--- NOTE | 2021-08-29 16:15 | NUR ---
DR KEENAN: PROVIDER AT BEDSIDE TO EVAL PT THIS EVENING. MIDLINE ABD INCISION DRESSING REMOVED. APPROX 4 JENNIFER REMOVED FROM PT's LOWER ABDOMEN AROUND UMBILICUS & WOUND PACKED W/ CALCIUM ALGINATE. ENTIRE AREA CLEANSED & REDRESSED. CONTINUE TO MONITOR REDNESS SURROUNDING ABELARDO INSERTION SITE. HIT PANEL HAS NOT RESULTED AT THIS TIME & PROVIDER STS W/ PLT COUNT INCREASING, OKAY TO BEGIN GIVING SC HEPARIN INJECTIONS AGAIN. NO OTHER CHANGES AT THIS TIME.
--- NOTE | 2021-08-29 18:05 | NUR ---
SHIFT SUMMARY: THE PT's MENTATION HAS IMPROVED SUBSTANTIALLY THIS AFTERNOON. HE CONTINUES TO SPEAK REPETETIVELY AT TIMES & REMAINS FORGETFUL, BUT IS OVERALL MORE EASILY REDIRECTED, LESS AGITATED. LS ARE DIM T/O, COARSE IN UPPERS, CLEARS SLIGHTLY W/ COUGHING. PT ON 5L NC W/ O2 SATS > 90% ON AVG. DOBHOFF TO RIGHT NARE W/ TUBE FEEDS INFUSING AT GOAL RATE OF 20 ML/HR W/ 30 ML H2O FLUSH Q4H. PT TOLERATING WELL W/ NO C/O INCREASED ABD OR NAUSEA. ILEOSTOMY TO RLQ CONTINUES DRAINING DARK BROWN LIQUID STLS. KEYS PATENT/ DRAINING DARK YELLOW, CLEAR URINE. SKIN CONDITION OVERALL FRAGILE. SEE PRIOR DR KEENAN NOTE REGARDING MIDLINE INCISION. ABELARDO TO LLQ INSERTION SITE REMAINS RED, SS DRAINAGE NOTED IN BULB. COCCYX DRESSING CDI. DRY-KELLEE PADS IN PLACE TO BUEs. Q2H REPOSITIONING TO MAINTAIN SKIN INTEGRITY. WILL CONTINUE TO MONITOR & REPORT OFF TO ONCOMING RN.
--- NOTE | 2021-08-29 19:30 | NUR ---
PT REPORT RECIEVED, SAFETY CHECK COMPLETED, ASSUMED PT CARE. PT IS ALERT AND ORIENTED TO SELF AND PLACE BUT NEEDS FREQUENT REORIENTATION TO WHAT IS CURRENTLY HAPPENING WITH HIS CARE. PT TENDS TO PERSEVERATE ABOUT WATER AND ORAL SUCTION.
[2021-08-30 04:17] LABS: Hematocrit 28.9 % (37.0-53.0); Hemoglobin 8.7 g/dL (13.5-17.5); Mean Corpuscular HGB 25.7 pg (26.0-34.0); Mean Corpuscular HGB Conc 30.1 g/dL (31.5-36.5); Mean Corpuscular Volume 85 fL (80-100); Platelet Count 318 K/mm3 (150-400); RDW Standard Deviation 61.6 fL (35.1-46.3); Red Blood Cell Count 3.39 M/mm3 (4.30-5.90); White Blood Cell Count 17.37 K/mm3 (4.00-11.30)
[2021-08-30 04:35] LABS: Alanine Aminotransfer (ALT/SGP 43 U/L (12-78); Albumin, Blood 1.7 g/dL (3.4-5.0); Albumin/Globulin Ratio 0.5 (0.8-1.8); Alk Phos 167 U/L (50-136); Anion Gap 1 mmol/L (6-16); Aspartate Aminotrans (AST/SGOT 52 U/L (12-37); Bilirubin, Total 0.8 mg/dL (0.1-1.0); Blood Urea Nitrogen 45 mg/dL (8-24); Bun/Creatinine Ratio 49.6 (12.0-20.0); CO2, Blood 29 mmol/L (21-32); Calcium, Blood 7.8 mg/dL (8.5-10.1); Chloride, Blood 118 mmol/L (98-108); Creatinine, Blood 0.91 mg/dL (0.60-1.20); Globulin, Blood 3.1 g/dL (2.2-4.0); Glomerular Filtration Rate >60 (60-); Glucose, Blood 121 mg/dL (70-99); Magnesium, Blood 2.3 mg/dL (1.6-2.4); Potassium, Blood 4.6 mmol/L (3.5-5.5); Sodium, Blood 148 mmol/L (136-145); Total Protein, Blood 4.8 g/dL (6.4-8.2)
--- NOTE | 2021-08-30 06:35 | NUR ---
SHIFT SUMERY: PT ALERT AND ORIENTED TO SELF, PLACE, YEAR AND TO HIS ADMITTING DIAGNISIS. PT CONTINUES TO HAVE SIGNIFICANT SHORT TERM MEORY LOSS. PT INITIALLY ANSIOUS AND PAINFUL AND WAS MEDICATED WITH FOR PAIN AND ALSO GIVEN ZYPREXA, PT PLACED ON CPAP WITH PRESSURE OF 10 AND 5 LPM BLEED IN, WHICH HE HAS TOLERATED VERY WELL. FREQUENT ORAL CARE HAS BEEN DONE THROUGHOUT THE NIGHT WITH SMALL SIPS OF WATER, FOLLOWING THE GEGE PROTOCOL PER DR. KEENAN. PT HAS TOLLERATED THIS VERY WELL AND HAS BEEN MUCH LESS ANXIOUS DURING THE NIGHT. PT'S VSS. PT ABLE TO SLEEP SEVERAL HOURS . WOUND CARE DONE TO MIDLING ABDOMINAL INCISION, WHICH IS STILL DRAINING LARGE AMOUNTS OF SEROSANGUINEOUS AND PURULANT DRAINAGE. ABELARDO DRAINED 160ML FOR NOC SHIFT. ILEOSTOMY DRAINED 500ML OF BROWN/GREEN STOOL, BOWEL SOUNDS ARE BECOMING MORE ACTIVE WITH ILEOSTOMY PRODUCING MORE GAS.
--- NOTE | 2021-08-30 07:45 | NUR ---
AM NOTE ASSUMED CARE OF PT AT 0700, THE PT IS A&Ox2 WITH CONFUSION, THE PT IS ANXIOUS AT TIMES AND YELLING OUT FOR WATER. THE PT'S VS STABLE HE IS IN SR IN THE 60'S-70'S, BP STABLE THE PT HAS 1+ EDEMA NOTED TO HIS BLE, DEPENDENT EDEMA NOTED TO HIS BUE AND SCROTAL EDEMA. THE PT IS ON 4L NC WITH O2 SATS >95% L/S COARSE T/O DIM IN THE BASES. THE PT'S DOBHOFF IS SECURE AT 87, TUBE FEEDS RUNNING PER ORDER AT 20MLS/HR. BT PRESENT AND HYPOACTIVE, THE PT'S ILLEOSTOMY IS PINK WITH LIQUID BROWN STOOL NOTED IN THE BAG. THE PT'S MIDLINE INCISION DRESSING IS NOTED TO HAVE S/S DRAINAGE. THE PT'S ABELARDO DRAIN HAS S/S FLUID WITH STRINGY SEDIMENT NOTED. THE PT'S KEYS IS PATENT AND DRAINING TO GRAVITY. WILL CONTINUE TO MONITOR.
--- NOTE | 2021-08-30 13:43 | NUR ---
PT UPDATE.... THE PT'S ABD DRESSINGS WERE CHANGED BY THIS RN, THE ILLEOSTOMY APPLIANCE WAS CHANGED BY THIS RN. SWAB CULTURES OF THE PT'S INCISION AND ABELARDO DRAIN WERE OBTAINED PER ORDER. THE PT'S TUBE FEEDS WERE CHANGED AND INCREASED TO A GOAL OF 50MLS/HR WITH H2O FLUSHES OF 200MLS Q4HRS, THE PT'S TF RATE WAS INCREASED AT 1015 FROM 20MLS TO 30MLS BY THIS RN. THE PT HAS TOLERATE THIS WELL SO FAR. A PICC LINE WAS PLACED BY PICC RN. WILL CONTINUE TO MONITOR.
--- NOTE | 2021-08-30 17:34 | NUR ---
SHIFT SUMMARY.... NO ACUTE NEGATIVE CHANGES NOTED THIS SHIFT. THE PT'S VS HAVE BEEN STABLE. THE PT'S TUBE FEEDS HAVE BEEN INCREASED FROM 20MLS/HR TO 50MLS/HR AND THE PT HAS TOLERATED THIS WELL. THE PT HAS BEEN TOLERATING SIPS OF WATER WITH A SPOON. THE PT'S OSTOMY IS DRAINING BROWN LIQUID STOOLS. THE PT'S KEYS IS PATENT AND DRAINING TO GRAVITY. THE PT WORKED WITH PT/OT AND WAS ABLE TO SIT ON THE SIDE OF THE BED APROX 5 MINS. THE PT'S CENTRAL LINE WAS PULLED BY THIS RN WNL. PICC LINE TO THE BONNIE. THE PT IS TRANSFERING TO PCU 11, REPORT GIVEN TO EROSION CONTROL COORDINATOR. THE PT'S UPDATED. WILL CONTINUE TO MONITOR.
--- NOTE | 2021-08-30 18:57 | NUR ---
PT TRANSFERRED TO PCU 11 FROM ICU, RECEIVED REPORT FROM CAMILLE FISCHER. PT RESPONDING TO PAIN, SLEEPING MOSTLY SINCE TRANSFER. VITALS HRR SR 70'S, BP SYSTOLIC 130'S, SATS ABOVE 95% ON 4L OF O2, AFEBRILE. DRESSINGS ON ABD WAS CHANGED, ILEOSTOMY EMPTIED, ABELARDO DRAIN INTACT DRAINING SEROUS SANGUINEOUS. HAS COCCYX DRESSING INTACT. TUBE FEEDING AT A GOAL RATE 50MLS/HR WITH 200 MLS WATER FLUSH Q4 HRS VIA DOBHOFF. PT REPOSITIONED IN BED HOB ELEVATED. CALL LIGHTS IN REACH WILL REPORT TO ONCOMING SHIFT
[2021-08-31 04:48] LABS: Hematocrit 29.3 % (37.0-53.0); Hemoglobin 8.9 g/dL (13.5-17.5); Mean Corpuscular HGB 25.6 pg (26.0-34.0); Mean Corpuscular HGB Conc 30.4 g/dL (31.5-36.5); Mean Corpuscular Volume 84 fL (80-100); Mean Platelet Volume 11.9 fL (9.1-12.4); Platelet Count 410 K/mm3 (150-400); RDW Standard Deviation 63.7 fL (35.1-46.3); Red Blood Cell Count 3.48 M/mm3 (4.30-5.90); White Blood Cell Count 15.86 K/mm3 (4.00-11.30)
[2021-08-31 05:14] LABS: Alanine Aminotransfer (ALT/SGP 37 U/L (12-78); Albumin/Globulin Ratio 0.6 (0.8-1.8); Alk Phos 167 U/L (50-136); Anion Gap 7 mmol/L (6-16); Aspartate Aminotrans (AST/SGOT 40 U/L (12-37); Bilirubin, Total 0.7 mg/dL (0.1-1.0); Blood Urea Nitrogen 43 mg/dL (8-24); Bun/Creatinine Ratio 44.5 (12.0-20.0); CO2, Blood 24 mmol/L (21-32); Calcium, Blood 7.9 mg/dL (8.5-10.1); Chloride, Blood 116 mmol/L (98-108); Creatinine, Blood 0.97 mg/dL (0.60-1.20); Globulin, Blood 3.4 g/dL (2.2-4.0); Glomerular Filtration Rate >60 (60-); Glucose, Blood 93 mg/dL (70-99); Magnesium, Blood 2.4 mg/dL (1.6-2.4); Phosphorus, Blood 2.6 mg/dL (2.5-4.9); Potassium, Blood 4.6 mmol/L (3.5-5.5); Sodium, Blood 147 mmol/L (136-145); Total Protein, Blood 5.4 g/dL (6.4-8.2); Triglycerides 79 mg/dL (30-160)
--- NOTE | 2021-08-31 07:05 | NUR ---
SHIFT SUMMARY ASSUMED CARE OF PT AT 1900. PT MENTATION IMPROVED T/O THE NIGHT. AT THE START OF SHIFT PT WOULD ONLY AWAKE TO PAINFUL STIMULUS. LATER PT WOULD AWAKEN AND PULL ON LINES. AT 0300, PT PULLED OUT HIS DOBHOFF, WOUND DRESSINGS, TELE, AND OSTOMY BAG. EVERYTHING WAS REPLACED. CXR VERIFIED BY HOSPITALIST AT 0620 TO BE ABLE TO USE. PT WAS RECEIVING TUBE FEEDINGS UNTIL THAT POINT. LINDEN, PT SIGNIFICANT OTHER, WAS CALLED TO HELP PT REFRAIN FROM PULLING AT LINES. PT WAS MORE WAKE AND TALKING WITH HER, BUT WAS STILL VERY CONFUSED PER SIG. OTHER.
--- NOTE | 2021-08-31 11:12 | NUR ---
Upon being asked by staff to assist with pt and pt's S.O, Amanda, I visit pt. Amanda is in panic mode because pt is hallucenating and thinks the hospital is out to kill him. I spend over 30 minutes providing a calming presence and quietly reassuring pt of his safety, the care he is receiving and the love that he is surrounded by. Amanda eventually finds a place of some peace and is able to sit down and pt begins to rest. I let Gas Utility Worker Brandin Owusu, who has prior connections with the family, re-engage for their spiritual care needs.
--- NOTE | 2021-08-31 12:20 | NUR ---
Pt says he doesn't want to eat. Too tired and so lunch was held. Tube feeding infusing via Dobhoff. CBG 98. at bedside. Pt was able to take some water by spoon a couple of hours ago, which he eagerly swallowed without any apparent difficulty. He declined the applesauce and at the time of medication administration, he was too agitated to attempt giving the meds by mouth.
--- NOTE | 2021-08-31 14:19 | NUR ---
C/O PAIN IN his abodomen.Repositioned left side, arms elevated on pillows. Given oral pain medication. Pt states more comfortable.
--- NOTE | 2021-08-31 15:28 | NUR ---
Pt currently in soft wrist restraints due to attempting to pull out dobhoff tube intermittently. He has been moved to PCU, hoping a change of scene will help calm the delirium somewhat. So far, this has not been the case. Last night at approx 3am, staff called pt's s/o due to his increasing agitation. His s/o did come in to sit with him, and this calmed him considerably at the time. He was also given zyprexa prn, appears to be somewhat effective. Pt is now on a diet of puree, mechanical soft and thin liquids by spoon. He continues to let bedside nurse know when he is having breakthrough pain, and she believes the pain is partially the reason behind the outbursts of delirium. She will continue to medicate prn as this is effective.
--- NOTE | 2021-08-31 16:32 | NUR ---
Dr. Owens here this afternoon, ABELARDO drain was removed and absorbent exudry dressing lightly taped over the area. Dressing on distal end of the midline abdominal incision where there is 2 cm area of dehiscence was removed again at the second time Dr. Owens was here, as it was again soiled with clear brown drainage. The pt tolerated the activity well. When he was repositioned on his right side he groaned and appeared uncomfortable, but after a minute or two he fell asleep and appears comfortable at this time, respirations even and unlabored and vital signs are stable. Restraints remain in place to prevent pt from pulling out the Dobhoff as he is still delirious. Jevity 1.5 tube feeding started per new orders, at 25 cc /hour, to increase slowly as tolerated to goal rate of 60 cc/hour via Dobhoff. The pt did eat about half of his puree lunch, tolerating it well at 1330 today.
--- NOTE | 2021-08-31 17:14 | NUR ---
Pt awake, calling out "help me up". Repositioned in bed and sat up in preparation for dinner. Pt used the incentive spirometer 10 times, got to 1000cc. Dentures put in. Arms are elevated on pillows.
--- NOTE | 2021-08-31 20:37 | NUR ---
ASSUMED CARE OF PATIENT AT [facility] 1900 FROM JACK Hong RN. PATIENT SLEEPING THROUGHT MOST OF BEDSIDE REPORT THEN WAKES UP AND ASKS "WHEN ARE WE GETTING UP" TO GO [place]. PATIENT CONFUSED; ABLE TO STATE NAME, , AND LOCATION [facility] BUT UNABLE TO STATE DATE AND REPORTS HE IS HERE FOR A HEART ATTACK; REORIENTED. PATIENT IN SOFT BILATERAL WRIST RESTRAINTS PER ORDER FOR PULLING ON THINGS. PATIENT REPORTS PAIN IN ABDOMEN; ESPECIALLY WITH TURNING; MEDICATED PER EMAR. PATIENT DENIES NUMBNESS, TINGLING, DIZZINESS, AND NAUSEA. PATIENT HAS ST ORDERS FOR DIET; SOME MEDS PER TUBE AND OTHER CRUSHED IN APPLESAUCE; AND TF INFUSING INTO DOBHOFF. NR W/ 1ST DEGREE ON TELE; OXYGEN SATURATION ABOVE 90% ON ROOM AIR. PICC BONNIE; 4CM EXPOSED; INSPECTED WITH FIELD SALES TRAINER AND SHE STATED "I AM OK WITH IT LONG IT IS DRAWING"; LINE DRAWS BLOOD. COCCYX MEPILEX CHANGED TO DRESSING ORDERED. ARMS AND LEGS ELEVATED. ILEOSTOMY OUTPUT RUNNING WITH SEDIMENT.
--- NOTE | 2021-09-01 01:28 | NUR ---
PATIENT HAS BEEN CALLING OUT INTO [facility] "WATER" AND SPOON FED PER ST ORDERS. PATIENT WANTING TO GET OUT OF BED AND GO [place]; THEN AROUND 0110 REMOTE RATE INSERTER CALLED TO REPORT PATIENT HAD A TUBE IN HIS HAND. PATIENT HAD PULLED HIS KEYS APART WITH RESTRAINTS ON; BED CHANGE AND GOWN CHANGE COMPLETED AND KEYS STILL PATIENT. PATIENT REPORTED HE WAS JUST MAKING A MESS AND APOLOGIZED.
[2021-09-01 03:41] LABS: Hematocrit 26.3 % (37.0-53.0); Mean Corpuscular HGB 25.7 pg (26.0-34.0); Mean Corpuscular HGB Conc 30.4 g/dL (31.5-36.5); Mean Corpuscular Volume 85 fL (80-100); Mean Platelet Volume 11.6 fL (9.1-12.4); Platelet Count 451 K/mm3 (150-400); RDW Coefficient Variation 20.4 % (11.7-14.2); RDW Standard Deviation 62.7 fL (35.1-46.3); Red Blood Cell Count 3.11 M/mm3 (4.30-5.90)
[2021-09-01 04:15] LABS: Alanine Aminotransfer (ALT/SGP 30 U/L (12-78); Albumin, Blood 1.8 g/dL (3.4-5.0); Albumin/Globulin Ratio 0.6 (0.8-1.8); Alk Phos 138 U/L (50-136); Anion Gap 6 mmol/L (6-16); Aspartate Aminotrans (AST/SGOT 28 U/L (12-37); Bilirubin, Total 0.6 mg/dL (0.1-1.0); Blood Urea Nitrogen 35 mg/dL (8-24); Bun/Creatinine Ratio 33.7 (12.0-20.0); CO2, Blood 22 mmol/L (21-32); Calcium, Blood 7.5 mg/dL (8.5-10.1); Chloride, Blood 117 mmol/L (98-108); Creatinine, Blood 1.04 mg/dL (0.60-1.20); Globulin, Blood 3.2 g/dL (2.2-4.0); Glomerular Filtration Rate >60 (60-); Glucose, Blood 120 mg/dL (70-99); Phosphorus, Blood 2.9 mg/dL (2.5-4.9); Potassium, Blood 4.3 mmol/L (3.5-5.5); Sodium, Blood 145 mmol/L (136-145)
--- NOTE | 2021-09-01 06:12 | NUR ---
PATIENT SLEPT ABOUT SEVEN HOURS LAST NIGHT. ALTERNATED BETWEEN USING CALL LIGHT AND CALLING OUT. USED INCENTIVE SPIROMETER ABOUT EVERY FOUR HOURS. TITRATED TF UP TO 35ML/HR FROM 25ML/HR. NO OTHER ACUTE CHANGES TO REPORT.
[2021-09-01 10:28] LABS: Percent Saturation 8.2 % (20.0-50.0)
--- NOTE | 2021-09-01 10:29 | NUR ---
AM NOTE: PATIENT ALERT TO SELF AND FAMILY. NOT ABLE TO TELL ME WHY HE IS HERE AND BIRTHDATE. PERRLA. DENIES NUMBNESS/TINGLING. OVERALL WEAK. ABLE TO MOVE ARMS AND LEGS IN BED. ON ROOM AIR, LUNGS SOUNDING CLEAR. SATING MID 90'S. OCCASIONAL COUGH WITH MODERATE PHLEM. TELE SHOWING SINUS RHYTHM WITH 1ST DEGREE BLOCK. HR 70'S. VITAL SIGNS STABLE. DENIES CHEST PAIN/PRESSURE. DENIES ABDOMINAL PAIN/NAUSEA. KEYS CATH REMOVED PER DR. KEENAN REQUEST. WILL MONITOR OUTPUT. ILEOSTOMY BAG IN PLACE, DRAINING BROWN LIQUID WITH SOME LOOSE STOOLS. SPEECH THERAPY IN THIS AM, DIET UPGRADED. PATIENT DID WELL EATING BREAKFAST. DOBHOFF DISCONTINUED AND REMOVED WNL PER DR. PRECIADO AT 1000. MIDLINE AND COCCYX WOUNDS CLEANED AND DRESSING CHANGED PER WOUND ORDERS. DR. KEENAN AND DR. PRECIADO IN THIS AM TO VISUALIZE WOUNDS. PICC LINE WITH 4CM EXPOSED, DRAWING AND FLUSHING WELL. ANTIBIOTICS INFUSED. Q2 TURNING, Q6 BLOOD SUGARS, AND Q4 ORAL CARE. CALL LIGHT IN REACH AND BED ALARM IN PLACE. AT BEDSIDE. WRIST RESTRAINTS REMOVED AT 0750 THIS AM. WILL CONTINUE TO MONITOR.
--- NOTE | 2021-09-01 12:11 | NUR ---
UPDATE: PATIENT UP TO RECLINER WITH PT/OT. 2 PERSON ASSIST WITH GAIT BELT. CHAIR ALARM IN PLACE FOR SAFETY. REMAINS AT BEDSIDE. PATIENT ABLE TO ASSIST IN FEEDING SELF WITH NURSE SUPERVISION. [facility] SOFT DIET, TOLERATING WELL. NO CONCERNS WITH SWALLOW AT THIS TIME. TAKING SMALL BITES AND DRINKS. VITAL SIGNS REMAIN STABLE. WILL CONTINUE TO MONITOR.
--- NOTE | 2021-09-01 15:49 | NUR ---
UPDATE: PATIENT UNABLE TO VOID POST KEYS REMOVAL. THIS RN AND ANKLE PATCH MOLDER TRIED DIFFERENT POSITIONS WELL HAVING PATIENT STAND. STILL UNABLE TO VOID. BLADDER SCAN VOLUME 330. CALL PLACED TO DR. KEENAN - ORDERS TO CONTINUE TO BLADDER SCAN AND IF VOLUME 600ML OR OVER TO STRAIGHT CATH ONCE AND IF HAPPENS AGAIN THEN REPLACE KEYS CATH.
--- NOTE | 2021-09-01 18:10 | NUR ---
SHIFT SUMMARY: PATIENT REMAINS ALERT TO SELF AND FAMILY. CONFUSED AT WHY AND WHERE HE IS. NO CHANGES IN NEURO. REMAINED CALM AND HAPPY THROUGHOUT SHIFT. UP TO RECLINER WITH 2 PERSON ASSIST. RESPIRATORY STATUS REMAINS UNCHANGED. ON ROOM, OCCASIONAL COUGH WITH PHLEM PRODUCTION. TELE REMAINS UNCHANGED. NSR WITH HR 70-80'S BP STABLE. DENIES CHEST PAIN/PRESSURE. KEYS CATH INSERTED AT THIS TIME WITH 2 RN'S IN ROOM TO ASSIST. VERY DIFFICULT PLACEMENT DUE TO EDEMATOUS [place]KIN. PATIENT TOLERATED WELL. DRAINING CLEAR/YELLOW URINE AT THIS TIME. USING CALL LIGHT. Q2 TURNING AND NEEDED. ACHS BLOOD SUGARS. NS RUNNING AT TKO. ANTIBIOTICS INFUSED. TOLERATING [facility] SOFT DIET. CALL LIGHT IN REACH. BED ALARM ON. WILL CONTINUE TO MONITOR AND REPORT OFF.
--- NOTE | 2021-09-01 18:23 | NUR ---
CALL PLACED TO DR. KEENAN TO UPDATE ON NEW KEYS PLACEMENT.
--- NOTE | 2021-09-01 21:43 | NUR ---
ASSUMED CARE OF PATIENT AT [facility] 1900 FROM CY Man RN. PATIENT ALERT AND ORIENTED TO SELF AND LOCATION, BUT UNABLE TO STATE DATE OR EVENT. PATIENT CONFUSED; ABLE TO STATE NAME, , AND LOCATION "[facility]" PAINFUL ABDOMENT WHEN TURNING. PATIENT DENIES NUMBNESS, TINGLING, DIZZINESS, AND NAUSEA. PATIENT HAS ST ORDERS FOR DIET. NR W/ 1ST DEGREE ON TELE; OXYGEN SATURATION ABOVE 90% ON ROOM AIR. PICC BONNIE INFUSING TKO. Q2H TURNS; MAX ASSIST OUT OF BED TODAY.
[2021-09-02 03:58] LABS: Hematocrit 26.8 % (37.0-53.0); Mean Corpuscular HGB 25.6 pg (26.0-34.0); Mean Corpuscular HGB Conc 29.9 g/dL (31.5-36.5); Mean Corpuscular Volume 86 fL (80-100); Mean Platelet Volume 11.3 fL (9.1-12.4); Platelet Count 526 K/mm3 (150-400); RDW Coefficient Variation 20.1 % (11.7-14.2); RDW Standard Deviation 61.1 fL (35.1-46.3); Red Blood Cell Count 3.13 M/mm3 (4.30-5.90); White Blood Cell Count 12.42 K/mm3 (4.00-11.30)
[2021-09-02 04:22] LABS: Alanine Aminotransfer (ALT/SGP 28 U/L (12-78); Albumin, Blood 1.7 g/dL (3.4-5.0); Albumin/Globulin Ratio 0.5 (0.8-1.8); Alk Phos 141 U/L (50-136); Anion Gap 5 mmol/L (6-16); Aspartate Aminotrans (AST/SGOT 26 U/L (12-37); Bilirubin, Total 0.5 mg/dL (0.1-1.0); Blood Urea Nitrogen 28 mg/dL (8-24); Bun/Creatinine Ratio 27.5 (12.0-20.0); CO2, Blood 23 mmol/L (21-32); Calcium, Blood 7.6 mg/dL (8.5-10.1); Chloride, Blood 118 mmol/L (98-108); Creatinine, Blood 1.02 mg/dL (0.60-1.20); Globulin, Blood 3.2 g/dL (2.2-4.0); Glomerular Filtration Rate >60 (60-); Glucose, Blood 79 mg/dL (70-99); Magnesium, Blood 2.1 mg/dL (1.6-2.4); Potassium, Blood 3.9 mmol/L (3.5-5.5); Sodium, Blood 146 mmol/L (136-145); Total Protein, Blood 4.9 g/dL (6.4-8.2)
--- NOTE | 2021-09-02 06:05 | NUR ---
PATIENT'S CBGS HAVE BEEN BEING CHECKED Q6H. PATIENT IS NOW EATING FOOD. ORDER IN CHART IS TO CHECK CBGS ACHS. DISCUSSED WITH PATIENT'S NURSE HOLLY. SHE SAID TO STOP CHECKING CBGS Q6H AND RESUME CHECKING CBGS ACHS. WILL NOTIFY ONCOMING PCT/RN.
--- NOTE | 2021-09-02 06:22 | NUR ---
PATIENT'S MENTATION CLEARER THIS MORNING; USING CALL LIGHT AND ABLE TO RECALL RECENT EVENTS. PATIENT SLEPT ABOUT EIGHT HOURS LAST. NO ACUTE CHANGES. MEDICATION ONCE FOR PAIN; ABDOMEN DRESSING CHANGED.
--- NOTE | 2021-09-02 10:50 | NUR ---
AM NOTE: PATIENT DELERIUM IMPROVING. LESS CONFUSED THIS AM. ABLE TO STATE NAME, PLACE, FAMILY AND BIRTHDATE. STATES HE IS HERE FOR "STOMACH PROBLEMS". PERRLA. DENIES NUMBNESS/TINGLING. OVERALL WEAK. WORKING WITH OT/PT. UP TO RECLINER WITH 2 PERSON ASSIST. ON ROOM AIR SATING MID 90'S. OCCASIONAL COUGH WITH SPUTUM. TELE SHOWING SINUS RHYTHM THIS AM WITH HR 70'S. DENIES CHEST PAIN/PRESSURE. VITAL SIGNS STABLE. COMPLAINS OF ABDOMINAL SORENESS, BUT DENIES NEEDS FOR PAIN MEDS THIS AM. ABDOMINAL WOUND AND COCCYX CLEANED AND DRESSED THIS AM PER WOUND CARE ORDERS. AT BEDSIDE. Q2 TURNING AND NEEDED. DR. PRECIADO IN THIS AM. SURGICAL STATUS WITH NO TELE. PICC WITH NS @ TKO. SPEECH THERAPY IN TO SEE PATIENT THIS AM. OKAY TO TAKE SOME MEDS WHOLE WITH APPLESAUCE. PLAN TO WORK WITH PT THIS AFTERNOON. CALL LIGHT IN REACH. WILL CONTINUE TO MONITOR.
--- NOTE | 2021-09-02 13:00 | NUR ---
PATIENT ARRIVED TO UNIT AT 1300 VIA CHAIR. A&O X4, VSS, PATIENT RESTING COMFORTABLY IN BED. MIDLINE INCISION OPEN TO AIR W/ JENNIFER, GAUZE TO LOWER PART OF INCISION. OSTOMY TO RLQ, STOMA LIGHT PINK AND BEEFY, NO DRAINAGE AT THIS TIME. KEYS IN PLACE, DRAINING CLEAR YELLOW URINE. PATIENT & FAMILY MEMBER ORIENTED TO ROOM & CALL LIGHT.
--- NOTE | 2021-09-02 13:11 | NUR ---
TRANSFER: NO ACUTE CHANGES. PATIENT UP WALKING WITH WALKER AND PT THIS AFTERNOON. SURGICAL STATUS WITH NO TELE. NO CHANGES IN RESP. VITAL SIGNS STABLE. COMPLAINS OF LEFT SIDE PAIN CLOSE TO ABELARDO DRAIN REMOVAL SITE. MEDICATED PER EMAR WITH PAIN MEDS. KEYS CATH IN PLACE DRAINING CLEAR/YELLOW URINE. AT BEDSIDE. ANTIBIOTICS INFUSED. NS AT TKO. TRANSFERED IN RECLINER WITH ALL PERSONAL BELONGINGS AND PATIENT CHART.
--- NOTE | 2021-09-02 18:28 | NUR ---
SHIFT SUMMARY NO ACUTE CHANGES SINCE ARRIVAL TO UNIT. PATIENT REMAINS PLEASANT, A&O X4 SINCE ARRIVAL. [facility], POOR APPETITE. SMALL AMOUNT OF LIQUID OSTOMY OUTPUT. PACKED BOTTOM OF MIDLINE INCISION OPENING W/ CALCIUM ALGINATE PER ORDERS. TRANSFERRED FROM CHAIR TO BED WELL W/ 2 PERSON ASSISTED. RESTINIG COMFORTABLY IN BED, CALL LIGHT IN REACH. WILL REPORT TO ONCOMING RN.
--- NOTE | 2021-09-03 03:14 | NUR ---
PT IS DISORIENTED TO TIME AND SITUATION, ORIENTED TO PERSON AND PLACE ONLY. HAS PICC IN PLACE FOR SCHEDULED ABX. PASSAGE OF FLATUS AND SMALL AMOUNTS OF STOOL IN OSTOMY. HAS MIDLINE DRESSING AND DRESSING ON L ABD BOTH ARE CDI. HAS KEYS D/T GENITAL EDEMA. PT IS A MAX ASSIST OOB. ON TELE. WILL CONTINUE TO MONITOR.
[2021-09-03 06:24] LABS: Hematocrit 27.3 % (37.0-53.0); Hemoglobin 8.2 g/dL (13.5-17.5); Mean Corpuscular HGB 25.5 pg (26.0-34.0); Mean Corpuscular Volume 85 fL (80-100); Mean Platelet Volume 10.9 fL (9.1-12.4); Platelet Count 614 K/mm3 (150-400); RDW Coefficient Variation 20.1 % (11.7-14.2); RDW Standard Deviation 62.4 fL (35.1-46.3); Red Blood Cell Count 3.22 M/mm3 (4.30-5.90); White Blood Cell Count 12.94 K/mm3 (4.00-11.30)
[2021-09-03 06:44] LABS: Magnesium, Blood 2.2 mg/dL (1.6-2.4)
[2021-09-03 06:45] LABS: Alanine Aminotransfer (ALT/SGP 27 U/L (12-78); Albumin, Blood 1.7 g/dL (3.4-5.0); Albumin/Globulin Ratio 0.5 (0.8-1.8); Alk Phos 157 U/L (50-136); Anion Gap 6 mmol/L (6-16); Aspartate Aminotrans (AST/SGOT 26 U/L (12-37); Bilirubin, Total 0.4 mg/dL (0.1-1.0); Blood Urea Nitrogen 23 mg/dL (8-24); Bun/Creatinine Ratio 23.1 (12.0-20.0); CO2, Blood 21 mmol/L (21-32); Calcium, Blood 7.7 mg/dL (8.5-10.1); Chloride, Blood 119 mmol/L (98-108); Creatinine, Blood 0.99 mg/dL (0.60-1.20); Globulin, Blood 3.4 g/dL (2.2-4.0); Glomerular Filtration Rate >60 (60-); Glucose, Blood 78 mg/dL (70-99); Potassium, Blood 3.9 mmol/L (3.5-5.5); Sodium, Blood 146 mmol/L (136-145); Total Protein, Blood 5.1 g/dL (6.4-8.2)
--- NOTE | 2021-09-03 12:11 | NUR ---
Dressing changes Surgical dressing changed at start of shift, serosanguineous fluid noted. sites assessed at 1200 and dressings changed again. Site where heparin was given (left abdomen) is bleeding/ leaking fluid. ABD applied. Ostomy appliance changed at 1035.
--- NOTE | 2021-09-03 15:33 | NUR ---
Dressing changes Assessed dressings at 1500 and changed both midline and left lower abdomen. Algenate applied to midline wound opening. Both surgical sites continue to drain serosanguenous fluid. in to see patient. She wants us to continue to monitor drainage.
--- NOTE | 2021-09-03 16:24 | NUR ---
Shift Summary patient sleeping on and off and in a great mood all shift. Family visited and hung pictures in his room. Pt standing with walker and 2 person assist to get into recliner. Tolerated well. He continues to be alert and oriented to self and family. He denies pain at this time. Shifting positions side to side to alleviate pressure on a wound located on his coccyx. Minimal drainage on bandage and wound looks pink with healing edges. Alcaraz catheter in place, draining clear/yellow urine. Lasix was given per Dr orders to remove excess fluid. D5 hung and running. Switch to NS when hanging ABO Cipro. ABO ran. Patient food intake ccontinues to be poor. Jello offered at lunch, which he enjoyed. Surgical dressing cnaged multiple times during shift. Midline incision packed with calcium alginate, covered with gauze, and paper tape applied. Incision on lower left abdomen continues to drain serosanguineous fluid. Ostomy appliance changed this morning. Stoma producing green/brown fluid with mucus. Plan is to continue encouraging mobilization and food intake.
[2021-09-04 04:10] LABS: BASOPHILS ABSOLUTE AUTO 0.09 K/mm3 (0.00-0.23); BASOPHILS PERCENT AUTO 1 % (0-2); EOSINOPHILS ABSOLUTE AUTO 0.24 K/mm3 (0.00-0.68); EOSINOPHILS PERCENT AUTO 2 % (0-6); Hematocrit 25.9 % (37.0-53.0); Hemoglobin 7.6 g/dL (13.5-17.5); IMMATURE GRAN ABSOLUTE AUTO 0.08 K/mm3 (0.00-0.10); IMMATURE GRAN PERCENT AUTO 1 % (0-1); LYMPHOCYTES ABSOLUTE AUTO 0.72 K/mm3 (0.84-5.20); LYMPHOCYTES PERCENT AUTO 6 % (21-46); MONOCYTES ABSOLUTE AUTO 0.66 K/mm3 (0.16-1.47); MONOCYTES PERCENT AUTO 5 % (4-13); Mean Corpuscular HGB 25.1 pg (26.0-34.0); Mean Corpuscular HGB Conc 29.3 g/dL (31.5-36.5); Mean Corpuscular Volume 86 fL (80-100); Mean Platelet Volume 10.7 fL (9.1-12.4); NEUTROPHILS ABSOLUTE AUTO 10.63 K/mm3 (1.96-9.15); NEUTROPHILS PERCENT AUTO 86 % (41-73); Platelet Count 602 K/mm3 (150-400); RDW Coefficient Variation 19.9 % (11.7-14.2); RDW Standard Deviation 60.6 fL (35.1-46.3); Red Blood Cell Count 3.03 M/mm3 (4.30-5.90); White Blood Cell Count 12.42 K/mm3 (4.00-11.30)
[2021-09-04 04:27] LABS: Alanine Aminotransfer (ALT/SGP 24 U/L (12-78); Albumin, Blood 1.6 g/dL (3.4-5.0); Albumin/Globulin Ratio 0.5 (0.8-1.8); Alk Phos 139 U/L (50-136); Anion Gap 6 mmol/L (6-16); Aspartate Aminotrans (AST/SGOT 21 U/L (12-37); Bilirubin, Total 0.3 mg/dL (0.1-1.0); Blood Urea Nitrogen 20 mg/dL (8-24); Bun/Creatinine Ratio 18.7 (12.0-20.0); CO2, Blood 23 mmol/L (21-32); Calcium, Blood 7.4 mg/dL (8.5-10.1); Chloride, Blood 114 mmol/L (98-108); Creatinine, Blood 1.07 mg/dL (0.60-1.20); Globulin, Blood 3.3 g/dL (2.2-4.0); Glomerular Filtration Rate >60 (60-); Glucose, Blood 104 mg/dL (70-99); Potassium, Blood 3.1 mmol/L (3.5-5.5); Sodium, Blood 143 mmol/L (136-145); Total Protein, Blood 4.9 g/dL (6.4-8.2)
--- NOTE | 2021-09-04 05:52 | NUR ---
SHIFT SUMMARY NO ACUTE CHANGES OVERNIGHT. PT DENIES PAIN OVERNIGHT. HE HAS BEEN COMFORTABLE IN BED. S/P R HEMICOLECTOMY ON THE AND S/P FOR FOR EXP OF RECENT LAP DUE TO PERF. ILEOSTOMY PUTTING OUT GREEN/BROWN, 800 MLS. TOLERATING PO INTAKE BUT POOR APPETITE. DENIES N/V. VSS. ABD INCISION HAS SOME SMALL SS FLUID. CPAP AT NIGHTS. SATS WNL. AOX2-3. FORGETFUL AT TIMES. DRESSING CHANGED ONCE ON LEFT ABD INCISION AND RIGHT ABD REGION. . PT HAS MEPLEX ON COCCYX (PRESSURE ULCER) KEYS IN PLACED. IV FLUIDS INFUSING D5 AND ABX ADMINISTERED. CALL LIGHT WITHIN REACH. WILL PROVIDE REPORT TO ONCOMING NURSE.
--- NOTE | 2021-09-04 15:06 | NUR ---
Reviewed weekend chart notes, and spoke with pt's s/o Katrin. Pt's condition has drastically improved, and he is tolerating a diet, working with therapy to ambulate. He is able to tolerate sitting up in the chair at bedside, and is motivated to return home. The plan at this time is for him to go to SNF for rehab in [place] close to pt's daughter. Palliative care will remain available should further needs arise.
--- NOTE | 2021-09-04 16:05 | NUR ---
SHIFT SUMMARY PT AOX3; [place]. PT DENIES PAIN OR ANY CP. CHANGED THE OSTOMY APPLIANCE TODAY AND DRESSING ON MID INCISION. PT IS PUTTING OUT ALOT OF OUTPUT ON HIS OSTOMY. PT ALSO HAS BLOOD LEAKING EVERYTIME HE MOVES ON HIS MID INCISION, DC'D HEPARIN PER . PT WORKED WITH PT TODAY. BLADDER TRAINING FOR 24 HRS, NOTIFIED THE NEXT SHIFT RN. BED IS IN THE LOWEST POSTIION AND CALL LIGHT WITHIN REACH
--- NOTE | 2021-09-04 16:28 | NUR ---
CARE ASSUMED AT 1600. OSTOMY APPLIANCE INTACT HOWEVER WOUND THAT IS UNDER OSTOMY DRESSING IS CONTINUING TO DRAIN. LIQUID STOOL EMPTIED FROM OSTOMY.
--- NOTE | 2021-09-04 17:41 | NUR ---
PT DECLONED TO TAKE PO POTASSIUM. HE REPORTS IT [place] HIS MOUTH AND THROAT, DR. JUÁREZ NOTIFIED AND CHANGED TO IV. SHE WAS ALSO NOTIFIED THAT PT'S BP HAS BEEN LOW NORMAL BUT DBP IS LOW. LASIX CANCELLED AT THIS TIME. WILL CONTINUE TO MONITOR.
--- NOTE | 2021-09-04 19:04 | NUR ---
SHIFT SUMMARY PT IS GETTING IV POTASSIUM THIS EVENING, HE REPORTS PO POTASSIUM [place] HIS THROAT AND MOUTH, UNABLE TO CRUSH POTASSIUM PILLS. PT TOLERATED SOME OF HIS PUREE DINNER, HE REPORTS ENJOYING CHOCOLATE ENSURES. NO SIGNIFICANT CHANGES TO REPORT AT THIS TIME. REPORT GIVEN TO ZEINAB FISCHER.
--- NOTE | 2021-09-04 19:41 | NUR ---
OSTOMY APPLIANCE CHANGE OSTOMY APPLIANCE BEGAN LEAKING WHEN PT WAS GETTING BACK TO BED. APPLIANCE CHANGED. ABD DRESSING CHANGED. EXUDRY PLACED TO OPEN LUQ WOUND, SCANT PURULENT DRAINAGE, COVERED WITH TEGADERM. GAUZE PLACED OVER LLQ INCISION, NO DRAINAGE. CALCIUM ALGENATE AND GAUZE PLACED OVER LOWER AREA OF MIDLINE INCISION. GAUZE PLACED OVER RLQ INCISION, JENNIFER IN PLACE, WOUND APPEARS TO BE OPEN BETWEEN JENNIFER.
[2021-09-05 04:35] LABS: BASOPHILS ABSOLUTE AUTO 0.08 K/mm3 (0.00-0.23); BASOPHILS PERCENT AUTO 1 % (0-2); EOSINOPHILS ABSOLUTE AUTO 0.31 K/mm3 (0.00-0.68); EOSINOPHILS PERCENT AUTO 2 % (0-6); Hematocrit 25.8 % (37.0-53.0); Hemoglobin 7.7 g/dL (13.5-17.5); IMMATURE GRAN ABSOLUTE AUTO 0.16 K/mm3 (0.00-0.10); IMMATURE GRAN PERCENT AUTO 1 % (0-1); LYMPHOCYTES ABSOLUTE AUTO 0.92 K/mm3 (0.84-5.20); LYMPHOCYTES PERCENT AUTO 7 % (21-46); MONOCYTES ABSOLUTE AUTO 0.71 K/mm3 (0.16-1.47); MONOCYTES PERCENT AUTO 5 % (4-13); Mean Corpuscular HGB 25.6 pg (26.0-34.0); Mean Corpuscular HGB Conc 29.8 g/dL (31.5-36.5); Mean Corpuscular Volume 86 fL (80-100); Mean Platelet Volume 10.3 fL (9.1-12.4); NEUTROPHILS ABSOLUTE AUTO 11.24 K/mm3 (1.96-9.15); NEUTROPHILS PERCENT AUTO 84 % (41-73); Platelet Count 618 K/mm3 (150-400); RDW Coefficient Variation 19.9 % (11.7-14.2); RDW Standard Deviation 61.1 fL (35.1-46.3); Red Blood Cell Count 3.01 M/mm3 (4.30-5.90); White Blood Cell Count 13.42 K/mm3 (4.00-11.30)
[2021-09-05 04:55] LABS: Alanine Aminotransfer (ALT/SGP 23 U/L (12-78); Albumin, Blood 1.6 g/dL (3.4-5.0); Albumin/Globulin Ratio 0.5 (0.8-1.8); Alk Phos 130 U/L (50-136); Anion Gap 5 mmol/L (6-16); Aspartate Aminotrans (AST/SGOT 18 U/L (12-37); Bilirubin, Total 0.3 mg/dL (0.1-1.0); Blood Urea Nitrogen 22 mg/dL (8-24); Bun/Creatinine Ratio 21.8 (12.0-20.0); CO2, Blood 22 mmol/L (21-32); Calcium, Blood 7.8 mg/dL (8.5-10.1); Chloride, Blood 114 mmol/L (98-108); Creatinine, Blood 1.01 mg/dL (0.60-1.20); Globulin, Blood 3.4 g/dL (2.2-4.0); Glomerular Filtration Rate >60 (60-); Glucose, Blood 100 mg/dL (70-99); Magnesium, Blood 2.1 mg/dL (1.6-2.4); Phosphorus, Blood 2.3 mg/dL (2.5-4.9); Potassium, Blood 4.4 mmol/L (3.5-5.5); Sodium, Blood 141 mmol/L (136-145)
--- NOTE | 2021-09-05 07:30 | NUR ---
SHIFT SUMMARY PT AOX3 FORGETFUL AT TIMES. PLEASANT AND COOPERATIVE WITH CARE. S/P HEMICOLECTOMY WITH ILEOSTOMY AND S/P EXP LAP WASHOUT. PT'S ABD INCISION DRESSSING REMAIN INTACT OVERNIGHT. THE MIDNLINE DRESSING HAS MOD SS DRAINAGE. NON OF THE DRESSING WAS SATURATED, DIDNT REQUIRE DRESSING CHANGE OVERNIGHT. PT ON BLADDER TRAINING, KEYS CLAMPED MULTIPLE TIMES. PT C/O PRESSURE ON HIS BLADDER AT 0130 IN THE MORNING. BLADDER SCANNED AND HE HAD 87MLS OF URINE. PT MED ARE CRUSHED WITH APPLESAUCE. ABLE TO SWALLOW SMALL SIZE PILLS OK. PT ON PUREE DIET BECAUSE DENTURES DOESN'T FIT HIM. VSS. CALL LIGHT WITHIN REACH. WILL PROVIDE REPORT TO ONCOMING NURSE.
--- NOTE | 2021-09-05 14:08 | NUR ---
KEYS CATH OUT AT APPROXIMATELY 1340.
--- NOTE | 2021-09-05 14:26 | NUR ---
Spiritual Care Visit... Pt. is sitting up in a recliner and is very responsive. Pt. welcomes my visit. SO is present. Pt. displays evidence for improved strength and focus of thought. Re-establish rapport with both Pt. and SO. Pt. is looking forward to discharge to a [place] skilled-care facility. Prayed for Pt, SO, and family. Pt. verbalized gratitude for the spiritual care visit.
--- NOTE | 2021-09-05 16:00 | NUR ---
SHIFT ASSESSMENT AM SHIFT ASSESSMENT DOCUMENTATION COMPLETED BY ZEINAB ARELLANO STUDENT NURSE. THIS RN AGREES WITH DOCUMENTATION BY ZEINAB STUDENT NURSE. DRESSINGS ON LUQ, LLQ AND MIDLINE WOUNDS, CHANGED AT TIME OF AM ASSESSMENT, APPROXIMATELY 1100. LUNG SOUNDS DIMINISHED T/O.
--- NOTE | 2021-09-05 19:12 | NUR ---
OSTOMY APPLIANCE LEAK OSTOMY APPLIACE CHANGED R/T LEAKING. SKIN PREP AND OSTOMY POWDER APPLIED FOR SKIN PROTECTION. HECTOR WAFFER APPLIED WITH 2 3/4 OVAL OSTOMY APPLIANCE ON TOP, OSTOMY PASTE APPLIED TO ASSIST WITH SEAL. DRESSING TO LUQ REMOVED AND CHANGED, WOUND CLEANSED. RLQ DRESSING CHANGED, WOUND CLEANSED. ABD MIDLINE DRESSING CHANGED WOUND CLEANSED.
--- NOTE | 2021-09-05 19:15 | NUR ---
SHIFT SUMMARY PT REMAINS IN THE HOSPITAL FOR WOUND HEALING, ABX AND IS AWAITING PLACEMENT AT SNF. DIETARY AND SPEECH THERAPY HAVE SEEN PT TO ASSIST WITH FEEDING AND PROVIDING ADEQUATE NUTRITION FOR WOUND HEALING. PT HAS A HIGH CALORIE DIET. CONTINUING WITH PUREE FOODS PER PT REQUEST. PT TOLERATES CHOCOLATE ENSURE WELL AND REQUESTS WITH MEALS. PT STARTED ON LIQUICEL TO HELP WITH WOUND HEALING. OSTOMY IS PUTTING OUT MORE THAN 1000ML PER SHIFT. IMODIUM AND METAMUCIL INCREASED TO SLOW OUTPUT AND PREVENT DEHYDRATION. KEYS CATH REMOVED TODAY, WAITING FOR PT TO VOID, ZEINAB RN AWARE. PT IS A 1 ASSIST FOR AMBULATION AND TRANSFERS. POSSIBLE DC TO SNF TOMORROW IF OSTOMY OUTPUT DECREASES. REPORT GIVEN TO ZEINAB FISCHER.
[2021-09-06 04:43] LABS: BASOPHILS PERCENT AUTO 1 % (0-2); EOSINOPHILS ABSOLUTE AUTO 0.42 K/mm3 (0.00-0.68); EOSINOPHILS PERCENT AUTO 3 % (0-6); Hemoglobin 7.8 g/dL (13.5-17.5); IMMATURE GRAN ABSOLUTE AUTO 0.26 K/mm3 (0.00-0.10); IMMATURE GRAN PERCENT AUTO 2 % (0-1); LYMPHOCYTES ABSOLUTE AUTO 0.85 K/mm3 (0.84-5.20); LYMPHOCYTES PERCENT AUTO 6 % (21-46); MONOCYTES ABSOLUTE AUTO 0.82 K/mm3 (0.16-1.47); MONOCYTES PERCENT AUTO 5 % (4-13); Mean Corpuscular Volume 87 fL (80-100); NEUTROPHILS ABSOLUTE AUTO 13.12 K/mm3 (1.96-9.15); NEUTROPHILS PERCENT AUTO 84 % (41-73); Platelet Count 640 K/mm3 (150-400); RDW Coefficient Variation 19.9 % (11.7-14.2); RDW Standard Deviation 62.8 fL (35.1-46.3); White Blood Cell Count 15.57 K/mm3 (4.00-11.30)
[2021-09-06 04:58] LABS: Anion Gap 6 mmol/L (6-16); Blood Urea Nitrogen 24 mg/dL (8-24); Bun/Creatinine Ratio 22.9 (12.0-20.0); CO2, Blood 22 mmol/L (21-32); Calcium, Blood 7.7 mg/dL (8.5-10.1); Chloride, Blood 111 mmol/L (98-108); Creatinine, Blood 1.05 mg/dL (0.60-1.20); Glomerular Filtration Rate >60 (60-); Glucose, Blood 90 mg/dL (70-99); Potassium, Blood 4.3 mmol/L (3.5-5.5); Sodium, Blood 139 mmol/L (136-145)
--- NOTE | 2021-09-06 05:16 | NUR ---
BUDGET MANAGER SUMMARY PT AAOX4 AND PLEASANT. 1 ASSIST W/ FWW TO THE BATHROOM. PT HAD KEYS CATHETER REMOVED DURING DAY SHIFT, HAS VOIDED SEVERAL TIMES TONIGHT 300-400 ML AT A TIME. CONTINUED METAMUCIL TONIGHT, STOOL IN ILEOSTOMY BAG STARTING TO THICKEN UP A BIT. ROUGHLY 600 ML OF STOOL OUTPUT THIS SHIFT. VSS, WILL CONTINUE TO MONITOR.
--- NOTE | 2021-09-06 13:05 | NUR ---
DRESSING CHANGE DRESSINGS CHANGED AT APPROX 1200. SATURATED WITH SEROUS FLUID. SEROSANGUINOUS IN MIDLINE INCISION. PT TOLERATED WELL.
--- NOTE | 2021-09-06 14:29 | NUR ---
Spiritual Care attempted... Pt. is sound asleep in a recliner. SO (Amanda) is present. Speak briefly and quietly with the SO, so as to not wake the pt. Agree, to return later in the day.
--- NOTE | 2021-09-06 16:15 | NUR ---
Spiritual Care visit. Pt. is in recliner and resting, but responds when I begin chatting with SO (who is present.) Pt. is pleasant with no particular complaints. Establish rapport with both Pt. and SO. Pt. verbalizes that he feels he is getting stronger. Pt. displays evidence of motivation to get stronger at rehab facility. Prayed for pt. Both the pt. and spouse verbalize gratitude for the spiritual care visit.
--- NOTE | 2021-09-06 17:22 | NUR ---
SHIFT SUMMARY ILEOSTOMY OUTPUT BECOMING MORE PASTY T/O SHIFT. STILL HAVING HIGH OUTPUT. PT HAS INCREASED HIS APPETITE. TOLERATING PO WELL. PT HAS AMBULATED WELL WITH THERAPY TODAY. DRESSINGS CHANGED TWICE DURING SHIFT. STILL HAVING MODERATE AMOUNT OF DRAINAGE IN ALL INCISION SITES. PT VOIDING WELL. PLAN IS TO POSSIBLY DISCHARGE TOMORROW.
--- NOTE | 2021-09-07 05:07 | NUR ---
OFFICE MACHINES SALES REPRESENTATIVE SUMMARY PT STARTED LOMOTIL TONIGHT AND CONTINUED METAMUCIL, STOOLS BECOMING MORE PASTY. DRESSINGS CHANGED ON MIDLINE INCISION X2 TONIGHT DUE TO MODERATE SEROSANGUINOUS DRAINAGE. PT CONTINUES TO WALK WITH A 1 ASSIST AND FWW TO BATHROM, VOIDING WITH NO ISSUES. VSS, WILL CONTINUE TO MONITOR.
[2021-09-07 05:08] LABS: BASOPHILS ABSOLUTE AUTO 0.16 K/mm3 (0.00-0.23); BASOPHILS PERCENT AUTO 1 % (0-2); EOSINOPHILS ABSOLUTE AUTO 0.46 K/mm3 (0.00-0.68); EOSINOPHILS PERCENT AUTO 3 % (0-6); Hematocrit 31.4 % (37.0-53.0); Hemoglobin 9.3 g/dL (13.5-17.5); IMMATURE GRAN ABSOLUTE AUTO 0.32 K/mm3 (0.00-0.10); IMMATURE GRAN PERCENT AUTO 2 % (0-1); LYMPHOCYTES ABSOLUTE AUTO 0.98 K/mm3 (0.84-5.20); LYMPHOCYTES PERCENT AUTO 6 % (21-46); MONOCYTES ABSOLUTE AUTO 0.73 K/mm3 (0.16-1.47); MONOCYTES PERCENT AUTO 4 % (4-13); Mean Corpuscular HGB 25.4 pg (26.0-34.0); Mean Corpuscular HGB Conc 29.6 g/dL (31.5-36.5); Mean Corpuscular Volume 86 fL (80-100); Mean Platelet Volume 9.9 fL (9.1-12.4); NEUTROPHILS ABSOLUTE AUTO 14.92 K/mm3 (1.96-9.15); NEUTROPHILS PERCENT AUTO 85 % (41-73); Platelet Count 751 K/mm3 (150-400); RDW Standard Deviation 62.5 fL (35.1-46.3); Red Blood Cell Count 3.66 M/mm3 (4.30-5.90); White Blood Cell Count 17.57 K/mm3 (4.00-11.30)
--- NOTE | 2021-09-07 10:23 | NUR ---
Spiritual Care Visit... Pt. is awake and sitting up in a recliner. SO is present. Both Pt. and SO welcome my visit. Pt. is getting meds and bloodwork from nurse while we re-establish rapport. Pt. is a little unsettled after a restless night. Through a calming presence this board design engineer sought to normalize the pt. experience. Pt. is otherwise pleasant and awaiting confirmation of plans to transfer to a alf in [place]. Pt. displayed evidence that he was looking forward to being closer to his daughter who lives there. Prayed with Pt. Pt. and SO verbalized gratitude for the spiritual care visit.
[2021-09-07 10:55] LABS: Anion Gap 11 mmol/L (6-16); Blood Urea Nitrogen 31 mg/dL (8-24); Bun/Creatinine Ratio 28.2 (12.0-20.0); CO2, Blood 19 mmol/L (21-32); Calcium, Blood 8.2 mg/dL (8.5-10.1); Chloride, Blood 108 mmol/L (98-108); Glomerular Filtration Rate >60 (60-); Glucose, Blood 123 mg/dL (70-99); Potassium, Blood 4.3 mmol/L (3.5-5.5); Sodium, Blood 138 mmol/L (136-145)
--- NOTE | 2021-09-07 18:34 | NUR ---
SHIFT SUMMARY PT POST OP FOR COMPLICATED HEMICOLECTOMY WITH ILEOSTOMY. PUT ON REGIMEN TO THICKEN STOOLS AND THEY ARE BECOMING MORE PASTY. C.DIFF SAMPLE SENT TO LAB. PT'S WHITE COUNT SLIGHTLY ELEVATED BUT NO FEVER NOTED. EXCESSIVE DRAINAGE FROM MIDLINE INCISION NOTED AND BROUGHT TO THE ATTENTION OF DR. KEENAN. DRESSING CHANGED X2 THIS SHIFT AND OSTOMY DEVICE CHANGED X1. AWAITING SNF PLACEMENT IN [place]. WILL REPORT TO ZEINAB FISCHER.
--- NOTE | 2021-09-08 04:21 | NUR ---
TELEPHONE ASSEMBLER SUMMARY PT VERY TIRED AND SEEMED WORE OUT AT START OF SHIFT. DIDN'T TALK MUCH AND STATED HE DIDN'T FEEL TOO WELL. CONVINCED PT TO TAKE BEDTIME DOSE OF METOPROLOL HOWEVER PT DIDN'T FEEL UP TO TAKING MOST OF HIS OTHER BEDTIME MEDICATIONS. PT SLEPT WELL FOR SEVERAL HOURS AND WOKE UP LATER IN THE NIGHT STATING HE FELT A BIT BETTER AND WAS ABLE TO GET UP TO THE BATHROOM WITH 1 ASSIST. STOOL OUTPUT INTO ILEOSTOMY REMAINS LOOSE/PASTY. OUTPUT AMOUNT DECREASING COMPARED TO LAST FEW DAYS. VSS, WILL CONTINUE TO MONITOR.
[2021-09-08 06:20] LABS: BASOPHILS ABSOLUTE AUTO 0.12 K/mm3 (0.00-0.23); BASOPHILS PERCENT AUTO 1 % (0-2); EOSINOPHILS ABSOLUTE AUTO 0.33 K/mm3 (0.00-0.68); EOSINOPHILS PERCENT AUTO 2 % (0-6); Hematocrit 29.3 % (37.0-53.0); Hemoglobin 8.7 g/dL (13.5-17.5); IMMATURE GRAN ABSOLUTE AUTO 0.36 K/mm3 (0.00-0.10); IMMATURE GRAN PERCENT AUTO 2 % (0-1); LYMPHOCYTES ABSOLUTE AUTO 0.89 K/mm3 (0.84-5.20); LYMPHOCYTES PERCENT AUTO 5 % (21-46); MONOCYTES ABSOLUTE AUTO 0.77 K/mm3 (0.16-1.47); MONOCYTES PERCENT AUTO 4 % (4-13); Mean Corpuscular HGB 25.4 pg (26.0-34.0); Mean Corpuscular HGB Conc 29.7 g/dL (31.5-36.5); Mean Corpuscular Volume 86 fL (80-100); Mean Platelet Volume 10.1 fL (9.1-12.4); NEUTROPHILS ABSOLUTE AUTO 15.68 K/mm3 (1.96-9.15); NEUTROPHILS PERCENT AUTO 86 % (41-73); Platelet Count 824 K/mm3 (150-400); RDW Standard Deviation 61.9 fL (35.1-46.3); Red Blood Cell Count 3.42 M/mm3 (4.30-5.90); White Blood Cell Count 18.15 K/mm3 (4.00-11.30)
[2021-09-08 06:36] LABS: Anion Gap 8 mmol/L (6-16); Blood Urea Nitrogen 31 mg/dL (8-24); Bun/Creatinine Ratio 29.2 (12.0-20.0); CO2, Blood 22 mmol/L (21-32); Calcium, Blood 8.6 mg/dL (8.5-10.1); Chloride, Blood 108 mmol/L (98-108); Creatinine, Blood 1.06 mg/dL (0.60-1.20); Glomerular Filtration Rate >60 (60-); Glucose, Blood 89 mg/dL (70-99); Potassium, Blood 4.4 mmol/L (3.5-5.5); Sodium, Blood 138 mmol/L (136-145)
[2021-09-08 10:30] LABS: C DIFFICILE DNA NEGATIVE (Negative)
--- NOTE | 2021-09-08 12:14 | NUR ---
DR. KEENAN CAME BY AND TOOK OUT THE PATIENTS JENNIFER ON MIDLINE ABD. SLIGHT BLEEDING ON SOME STAPLE SITES AND LLQ BUT EXUDRY WAS PLACED. OSTOMY HAS MORE THICK BROWN OUTPUT. DR. KEENAN WANTS THE OTHER JENNIFER UNDERNEATH THE OSTOMY APPLIANCE TO BE REMOVED NEXT TIME OSTOMY IS CHANGED. PATIENT IS CLEANED UP AND SITTING UP IN A CHAIR. CALL LIGHT IN REACH. TAB ALARM PLACED.
--- NOTE | 2021-09-08 16:15 | NUR ---
SHIFT SUMMARY: RIGHT HEMICOLECTOMY-ILEOSTOMY NO SIGNIFICANT CHANGES. PATIENT IS ALERT AND ORIENTED X4. VS ARE WNL AND IS ON RA. PATIENT DENIES PAIN AT THIS TIME. MIDLINE HAS EXUDRY PAD THAT IS C/D/I. LLQ THAT WAS AN OLD ABELARDO DRAIN SITE HAS AN EXUDRY WELL THAT IS C/D/I. OSTOMY HAS THICKER BROWN OUTPUT AND STOMA IS PINK. HE IS A SBA WITH GAIT BELT AND FWW. ENCOURAGING AMBULATION IN HALLWAYS AND NUTRITION INTAKE. VOIDING IS WNL. COCCYX HAS A STAGE 2 ULCER THAT HAS PINK CREAM AND MEPLIEX ON THAT IS DRY AND INTACT. AT BEDSIDE. CALL LIGHT WITHIN REACH. THE PLAN IS TO POSSIBLY BE DISCHARGED HOME WITH HOME HEALTH WHEN APPROPRIATE.
--- NOTE | 2021-09-09 03:15 | NUR ---
WOUND CARE: REMOVED THREE JENNIFER FROM LRQ WOUND. THERE IS STILL ONE REMAINING IN THE PROXIMAL CORNER OF WOUND, CLOSEST TO THE UMBILICUS. WHILE REMOVING JENNIFER, WOUND BEGAN BLEEDING. RN LEFT THE LAST STAPLE IN, FOR DR. KEENAN TO ASSESS WOUND. RN CLOSED THE LRQ INCISION WITH STERI-STRIPS. COVERED ABD INCISION WITH EXUDRY, GAUZE AND MEDIPORE TAPE. REPLACED ILLEOSTOMY APPLIANCE. STOMA IS BRIGHT PINK, STILL PUTTING OUT LIQUID STOOL THAT IS SLOWLY FORMING.
--- NOTE | 2021-09-09 03:50 | NUR ---
SHIFT SUMMARY PT IS S/P RIGHT HEMICOLLECTOMY WITH ILLEOSTOMY. STOMA IS BRIGHT PINK. OUTPUT IS BECOMING FORM STOOL, STILL A LOT OF LIQUID OUTPUT. ABD IS TENDER FOR PT. HE IS SLEEPING ON 2LPM OF OXYGEN TO MAINTAIN SATS ABOVE 92%, HE DECLINED TO WEAR CPAP AT NIGHT. MEPILEX IN PLACE ON COCCYX. RN ENCOURAGED POSITIONAL CHANGES IN BED, SUPPORTING RUE ON PILLOW FOR EDEMA TO RIGHT FOREARM. PT TAKES MEDS WHOLE OR CRUSHED IN APPLESAUCE. WILL CONTINUE TO MONITOR.
[2021-09-09 04:33] LABS: BASOPHILS ABSOLUTE AUTO 0.12 K/mm3 (0.00-0.23); BASOPHILS PERCENT AUTO 1 % (0-2); EOSINOPHILS ABSOLUTE AUTO 0.31 K/mm3 (0.00-0.68); EOSINOPHILS PERCENT AUTO 2 % (0-6); Hematocrit 24.7 % (37.0-53.0); Hemoglobin 7.5 g/dL (13.5-17.5); IMMATURE GRAN ABSOLUTE AUTO 0.38 K/mm3 (0.00-0.10); IMMATURE GRAN PERCENT AUTO 2 % (0-1); LYMPHOCYTES ABSOLUTE AUTO 0.89 K/mm3 (0.84-5.20); LYMPHOCYTES PERCENT AUTO 4 % (21-46); MONOCYTES ABSOLUTE AUTO 1.15 K/mm3 (0.16-1.47); MONOCYTES PERCENT AUTO 5 % (4-13); Mean Corpuscular HGB 25.9 pg (26.0-34.0); Mean Corpuscular HGB Conc 30.4 g/dL (31.5-36.5); Mean Corpuscular Volume 85 fL (80-100); Mean Platelet Volume 9.8 fL (9.1-12.4); NEUTROPHILS ABSOLUTE AUTO 18.48 K/mm3 (1.96-9.15); NEUTROPHILS PERCENT AUTO 87 % (41-73); Platelet Count 854 K/mm3 (150-400); RDW Coefficient Variation 19.9 % (11.7-14.2); RDW Standard Deviation 61.9 fL (35.1-46.3); White Blood Cell Count 21.33 K/mm3 (4.00-11.30)
--- NOTE | 2021-09-09 06:06 | NUR ---
PHONE CALL TO PHYSICIAN PLACED CALL TO DR. WILKS TO REPORT HGB 7.5 AND HCT 24.7. NO ORDERS AT THIS TIME.
[2021-09-09 12:41] LABS: Hematocrit 26.6 % (37.0-53.0); Hemoglobin 7.9 g/dL (13.5-17.5)
--- NOTE | 2021-09-09 16:50 | NUR ---
SHIFT SUMMARY PT A&OX3, PLEASANT & COOPERATIVE, AT BEDSIDE. AMB FWW & GB TO BRP, UP TO CHAIR AND BACK TO BED T/O SHIFT, REPOSITIONS SELF WELL, ENC PT TO REPOSITION SIDE/SIDE-COCCYX MEPILEX ON, BLE ELEVATED. JOVANNY PUREE DIET, MEDS W/APPLESAUCE. PAIN MANAGED WITH TYLENOL AND REPOSITIONING. ABD MIDLINE PACHECO, LOWER MIDLINE ALGINATE/TAPE CHANGED PRN, X1. ILEOSTOMY WITH BROWN LIQUID STOOL. VOIDING WELL. WILL REPORT TO ONCOMING NOC RN.
[2021-09-10 04:03] LABS: BASOPHILS PERCENT AUTO 1 % (0-2); EOSINOPHILS ABSOLUTE AUTO 0.31 K/mm3 (0.00-0.68); EOSINOPHILS PERCENT AUTO 2 % (0-6); Hematocrit 25.7 % (37.0-53.0); Hemoglobin 7.6 g/dL (13.5-17.5); IMMATURE GRAN ABSOLUTE AUTO 0.23 K/mm3 (0.00-0.10); IMMATURE GRAN PERCENT AUTO 1 % (0-1); LYMPHOCYTES ABSOLUTE AUTO 0.94 K/mm3 (0.84-5.20); LYMPHOCYTES PERCENT AUTO 5 % (21-46); MONOCYTES ABSOLUTE AUTO 0.79 K/mm3 (0.16-1.47); MONOCYTES PERCENT AUTO 5 % (4-13); Mean Corpuscular HGB 25.4 pg (26.0-34.0); Mean Corpuscular HGB Conc 29.6 g/dL (31.5-36.5); Mean Corpuscular Volume 86 fL (80-100); Mean Platelet Volume 9.5 fL (9.1-12.4); NEUTROPHILS ABSOLUTE AUTO 15.37 K/mm3 (1.96-9.15); NEUTROPHILS PERCENT AUTO 87 % (41-73); Platelet Count 691 K/mm3 (150-400); RDW Coefficient Variation 19.8 % (11.7-14.2); RDW Standard Deviation 61.4 fL (35.1-46.3); Red Blood Cell Count 2.99 M/mm3 (4.30-5.90); White Blood Cell Count 17.74 K/mm3 (4.00-11.30)
[2021-09-10 04:21] LABS: Albumin, Blood 1.8 g/dL (3.4-5.0); Anion Gap 3 mmol/L (6-16); Blood Urea Nitrogen 29 mg/dL (8-24); Bun/Creatinine Ratio 26.4 (12.0-20.0); CO2, Blood 26 mmol/L (21-32); Calcium, Blood 8.5 mg/dL (8.5-10.1); Chloride, Blood 110 mmol/L (98-108); Glomerular Filtration Rate >60 (60-); Glucose, Blood 98 mg/dL (70-99); Phosphorus, Blood 3.6 mg/dL (2.5-4.9); Potassium, Blood 4.3 mmol/L (3.5-5.5); Sodium, Blood 139 mmol/L (136-145)
--- NOTE | 2021-09-10 05:15 | NUR ---
SHIFT SUMMARY PT RESTS OFF AND ON THIS SHIFT. PT UP TO CHAIR THIS SHIFT AND AMBULATES TO THE BATHROOM WELL WITH 1 PA ASSIST. PT REPORTS SOME PAIN TO HIS ABD BUT DECLINES ANYTHING FOR PAIN. ABD WOUND REDRESSED THIS SHIFT PER ORDERS. ILLEOSTOMY DRAINING WITH SOME FORM STOOL PRESENT, BUT STILL QUITE A BIT OF LIQUID. 240 CC EMPTIED THIS SHIFT. VITALS ARE STABLE. PT REFUSES SOME DOSES OF HIS IMMODIUM THIS SHIFT. A/OX4, MAKES NEEDS KNOWN AND CALLS APPROPRIATELY. BED IN LOWEST POSITION, CALL LIGHT WITHIN REACH.
--- NOTE | 2021-09-10 20:14 | NUR ---
SHIFT SUMMARY PT A&OX4, VSS/RA, JOVANNY PO PUREE DIET R/T NO DENTURES/MEDS WITH APPLESAUCE, PAIN MANAGED WELL WITH ULTRAM & TYLENOL, VOIDING WELL, AMB SBA FWW & GB TO BRP, UP TO CHAIR/BED MULTIPLE TIMES T/O SHIFT. MIDLINE PACHECO, LOWER INCISION AREA DRESSING CHANGED WITH GAUZE/TAPE. OSTOMY WITH THICKER, UNFORMED BROWN STOOL OUT 400 MLS THIS SHIFT. SPIRITUAL CARE CONSULT ADDED FOR PT TO DISCUSS LIFE CHANGES AND DIFFICULTIES WITH ADJUSTING TO OSTOMY AND SLOW HEALING. REPORT PROVIDED TO SURI FISCHER.
[2021-09-11 04:53] LABS: BASOPHILS ABSOLUTE AUTO 0.13 K/mm3 (0.00-0.23); BASOPHILS PERCENT AUTO 1 % (0-2); EOSINOPHILS ABSOLUTE AUTO 0.33 K/mm3 (0.00-0.68); EOSINOPHILS PERCENT AUTO 2 % (0-6); Hematocrit 27.9 % (37.0-53.0); IMMATURE GRAN ABSOLUTE AUTO 0.22 K/mm3 (0.00-0.10); IMMATURE GRAN PERCENT AUTO 1 % (0-1); LYMPHOCYTES ABSOLUTE AUTO 0.93 K/mm3 (0.84-5.20); LYMPHOCYTES PERCENT AUTO 5 % (21-46); MONOCYTES PERCENT AUTO 5 % (4-13); Mean Corpuscular HGB 24.6 pg (26.0-34.0); Mean Corpuscular HGB Conc 28.7 g/dL (31.5-36.5); Mean Corpuscular Volume 86 fL (80-100); Mean Platelet Volume 9.4 fL (9.1-12.4); NEUTROPHILS ABSOLUTE AUTO 15.54 K/mm3 (1.96-9.15); NEUTROPHILS PERCENT AUTO 87 % (41-73); Platelet Count 772 K/mm3 (150-400); RDW Coefficient Variation 19.9 % (11.7-14.2); RDW Standard Deviation 61.8 fL (35.1-46.3); Red Blood Cell Count 3.25 M/mm3 (4.30-5.90); White Blood Cell Count 17.95 K/mm3 (4.00-11.30)
[2021-09-11 05:10] LABS: Albumin, Blood 1.9 g/dL (3.4-5.0); Anion Gap 6 mmol/L (6-16); Blood Urea Nitrogen 26 mg/dL (8-24); Bun/Creatinine Ratio 22.6 (12.0-20.0); CO2, Blood 25 mmol/L (21-32); Calcium, Blood 8.6 mg/dL (8.5-10.1); Chloride, Blood 110 mmol/L (98-108); Creatinine, Blood 1.15 mg/dL (0.60-1.20); Glomerular Filtration Rate 60 (60-); Glucose, Blood 99 mg/dL (70-99); Potassium, Blood 4.5 mmol/L (3.5-5.5); Sodium, Blood 141 mmol/L (136-145)
--- NOTE | 2021-09-11 07:43 | NUR ---
SUMMARY PT SITTING UP IN CHAIR AT BEDSIDE.COMFORTABLE.
[2021-09-11] MEDS ORDERED: LOMOTIL 2.5-0.1 EACH PO (14:37)
[2021-09-11] MEDS ORDERED: CIPR500 PO (14:37)
[2021-09-11] MEDS ORDERED: LOPE2C PO (14:38)
[2021-09-11] MEDS ORDERED: VISBIOME 112.51 EACH PO (14:38)
[2021-09-11] MEDS ORDERED: METAMUCIL POWD798 GM PO (14:43)
[2021-09-11] MEDS ORDERED: GENTEAL TEARS3.5 GM BOTHEYES (14:44)
--- NOTE | 2021-09-11 15:36 | NUR ---
DISCHARGE PT LEFT VIA WHEELCHAIR WITH FAMILY, ALL INSTRUCTIONS AND BELONGINGS SENT WITH PATIENT. WENT OVER OSTOMY EMPTYING AND CHANGING WITH PATIENT AND FAMILY. PATIENT AND FAMILY ACTIVELY PARTICIPATED IN EDUCATION AND LEARNING. ALL PRESCRIPTIONS FAXED TO PHARMACY. OSTOMY CHANGED PRIOR TO DISCHARGE. NEW OSTOMY SIZE IS 2 1/4 ROUND. FAXED TO [facility] FOR NEW SUPPLIES. EXTRA SUPPLIES SENT WITH PATIENT. CHANGED MIDLINE DRESSING WITH DR. KEENAN PRIOR THIS MORNING. PATIENT TOLERATED WELL, AMBULATING WELL WITH WALKER AND GAIT BELT. TOLERATING PO WELL.
== END 2021-09-11 15:30 | disposition home health service (06) | DRG 329 ==
LOC: ORSCMMR 09:46 → SURS 20:09 → ORSCMMR 20:09 → ICUE 20:09 → SURS 21:35 → ORSCMMR 21:35 → ICUE 08-22 13:18 → PCU 08-30 17:39 → SURS 09-02 12:59
PROVIDERS: Family Medicine; Internal Medicine; Internal Medicine Critical Care Medicine; Surgery; ADMIT Surgery
PROC: 30233N1 Transfusion of Nonautologous Red Blood Cells into Peripheral Vein, Percutaneous Approach (ICD-10-PCS; 2021-08-09)
PROC: 8E0W4CZ Robotic Assisted Procedure of Trunk Region, Percutaneous Endoscopic Approach (ICD-10-PCS; 2021-08-09)
PROC: 5A09357 Assistance with Respiratory Ventilation, Less than 24 Consecutive Hours, Continuous Positive Airway Pressure (ICD-10-PCS; 2021-08-09)
PROC: 0DTF4ZZ Resection of Right Large Intestine, Percutaneous Endoscopic Approach (ICD-10-PCS; principal; 2021-08-09 12:30)
PROC: 3E0G76Z Introduction of Nutritional Substance into Upper GI, Via Natural or Artificial Opening (ICD-10-PCS; 2021-08-11)
PROC: 0DBE0ZZ Excision of Large Intestine, Open Approach (ICD-10-PCS; 2021-08-22)
PROC: 3E033XZ Introduction of Vasopressor into Peripheral Vein, Percutaneous Approach (ICD-10-PCS; 2021-08-22)
PROC: 03HY32Z Insertion of Monitoring Device into Upper Artery, Percutaneous Approach (ICD-10-PCS; 2021-08-22)
PROC: 4A133B1 Monitoring of Arterial Pressure, Peripheral, Percutaneous Approach (ICD-10-PCS; 2021-08-22)
PROC: 4A133J1 Monitoring of Arterial Pulse, Peripheral, Percutaneous Approach (ICD-10-PCS; 2021-08-22)
PROC: 0D1B0Z4 Bypass Ileum to Cutaneous, Open Approach (ICD-10-PCS; 2021-08-23)
PROC: 0BH17EZ Insertion of Endotracheal Airway into Trachea, Via Natural or Artificial Opening (ICD-10-PCS; 2021-08-23)
PROC: 5A1945Z Respiratory Ventilation, 24-96 Consecutive Hours (ICD-10-PCS; 2021-08-23)
PROC: 02HV33Z Insertion of Infusion Device into Superior Vena Cava, Percutaneous Approach (ICD-10-PCS; 2021-08-30)
DX: C18.0 Malignant neoplasm of cecum (principal); K65.9 Peritonitis, unspecified; A41.9 Sepsis, unspecified organism; R65.21 Severe sepsis with septic shock; J96.01 Acute respiratory failure with hypoxia; R40.20 Unspecified coma; Z66 Do not resuscitate; J18.9 Pneumonia, unspecified organism; G92.8 Other toxic encephalopathy; E87.1 Hypo-osmolality and hyponatremia; K56.7 Ileus, unspecified; N17.9 Acute kidney failure, unspecified; K91.89 Other postprocedural complications and disorders of digestive system; E87.0 Hyperosmolality and hypernatremia; D62 Acute posthemorrhagic anemia; Z20.822 Contact with and (suspected) exposure to COVID-19; R33.9 Retention of urine, unspecified; Z78.1 Physical restraint status; E83.42 Hypomagnesemia; E83.51 Hypocalcemia; E87.6 Hypokalemia; E83.39 Other disorders of phosphorus metabolism; D69.6 Thrombocytopenia, unspecified; K44.9 Diaphragmatic hernia without obstruction or gangrene; D72.829 Elevated white blood cell count, unspecified; E78.5 Hyperlipidemia, unspecified; B96.89 Other specified bacterial agents as the cause of diseases classified elsewhere; N18.30 Chronic kidney disease, stage 3 unspecified; I25.10 Atherosclerotic heart disease of native coronary artery without angina pectoris; D50.9 Iron deficiency anemia, unspecified; I25.2 Old myocardial infarction; N40.0 Benign prostatic hyperplasia without lower urinary tract symptoms; E03.9 Hypothyroidism, unspecified; H90.3 Sensorineural hearing loss, bilateral; G47.33 Obstructive sleep apnea (adult) (pediatric); M10.9 Gout, unspecified; Z90.89 Acquired absence of other organs; Z98.890 Other specified postprocedural states; Z95.5 Presence of coronary angioplasty implant and graft; Z79.82 Long term (current) use of aspirin; Z87.891 Personal history of nicotine dependence; Z79.02 Long term (current) use of antithrombotics/antiplatelets; Z79.899 Other long term (current) drug therapy
CPT/HCPCS: 0241U; 31720; 36415; 36430; 36556; 36569; 51703; 70450; 71045; 71250; 74022; 74176; 74177; 80048; 80053; 80069; 80202; 82330; 82728; 82803; 82947; 83540; 83550; 83605; 83735; 84100; 84132; 84145; 84478; 84484; 85014; 85018; 85025; 85027; 86022; 86140; 86850; 86870; 86900; 86901; 86902; 86922; 87040; 87070; 87075; 87076; 87077; 87185; 87186; 87205; 87493; 88307; 88309; 92526; 92610; 93005; 93010; 94002; 94003; 94660; 94760; 94762; 97110; 97116; 97162; 97164; 97166; 97530; 97535; A9270; C1751; C1769; C9113; J0295; J0330; J0610; J0694; J0744; J1100; J1170; J1644; J1940; J2185; J2250; J2370; J2405; J2543; J2704; J2765; J3010; J3370; J3411; J3475; J3480; J7030; J7040; J7050; J7060; J7070; J7120; J7131; P9016; P9035; P9046; Q9967

== ENCOUNTER 2021-09-15 17:00 | Emergency (ER) | payer OTHER ==
[~2021-09-15] VITALS: Ht 175.3 cm; Wt 70.3 kg
[~2021-09-15 17:00] MED LIST changes: +ASCORBIC ACID500 MG PO; +Acetaminophen650 M1 PO; +CIPR500 PO; +Calcium Carbon500 MG PO; +GENTEAL TEARS3.5 GM BOTHEYES; +LACRI-LUBE BOTHEYES; +LOMOTIL 2.5-0.1 EACH PO; +LOPE2C PO; +METAMUCIL POWD798 GM PO; +METO25 PO; +METO5A PO; +Norco 5-325 Ta1 EACH PO; +VISBIOME 112.51 EACH PO
[2021-09-15 17:32] LABS: BASOPHILS ABSOLUTE AUTO 0.12 K/mm3 (0.00-0.23); BASOPHILS PERCENT AUTO 1 % (0-2); EOSINOPHILS ABSOLUTE AUTO 0.69 K/mm3 (0.00-0.68); EOSINOPHILS PERCENT AUTO 5 % (0-6); Hematocrit 30.9 % (37.0-53.0); IMMATURE GRAN ABSOLUTE AUTO 0.14 K/mm3 (0.00-0.10); IMMATURE GRAN PERCENT AUTO 1 % (0-1); LYMPHOCYTES ABSOLUTE AUTO 1.15 K/mm3 (0.84-5.20); LYMPHOCYTES PERCENT AUTO 8 % (21-46); MONOCYTES ABSOLUTE AUTO 0.79 K/mm3 (0.16-1.47); MONOCYTES PERCENT AUTO 6 % (4-13); Mean Corpuscular HGB 24.9 pg (26.0-34.0); Mean Corpuscular HGB Conc 29.1 g/dL (31.5-36.5); Mean Corpuscular Volume 86 fL (80-100); Mean Platelet Volume 8.8 fL (9.1-12.4); NEUTROPHILS ABSOLUTE AUTO 11.03 K/mm3 (1.96-9.15); NEUTROPHILS PERCENT AUTO 79 % (41-73); Platelet Count 756 K/mm3 (150-400); RDW Coefficient Variation 19.8 % (11.7-14.2); RDW Standard Deviation 60.9 fL (35.1-46.3); Red Blood Cell Count 3.61 M/mm3 (4.30-5.90); White Blood Cell Count 13.92 K/mm3 (4.00-11.30)
[2021-09-15 19:21] LABS: Albumin, Blood 2.4 g/dL (3.4-5.0); Albumin/Globulin Ratio 0.5 (0.8-1.8); Bilirubin, Total 0.3 mg/dL (0.1-1.0); Bun/Creatinine Ratio 18.7 (12.0-20.0); Calcium, Blood 8.8 mg/dL (8.5-10.1); Creatinine, Blood 1.23 mg/dL (0.60-1.20); Globulin, Blood 4.7 g/dL (2.2-4.0); Potassium, Blood 4.5 mmol/L (3.5-5.5); Total Protein, Blood 7.1 g/dL (6.4-8.2)
== END 2021-09-15 21:03 | disposition home or self-care (01) ==
LOC: ER 17:00
PROVIDERS: Emergency Medicine
DX: Z48.815 Encounter for surgical aftercare following surgery on the digestive system (principal); Z79.899 Other long term (current) drug therapy; Z79.82 Long term (current) use of aspirin; I25.2 Old myocardial infarction; I12.9 Hypertensive chronic kidney disease with stage 1 through stage 4 chronic kidney disease, or unspecified chronic kidney disease; N18.30 Chronic kidney disease, stage 3 unspecified; G47.30 Sleep apnea, unspecified; M10.9 Gout, unspecified; E03.9 Hypothyroidism, unspecified
CPT/HCPCS: 80053; 82272; 85025; 99283

== ENCOUNTER → 2021-10-09 | Outpatient (CLI) | payer OTHER ==
[~2021-10-09] MED LIST changes: +IMODIUM A-D2 M1 PO
[2021-10-09 19:56] LABS: Percent Saturation 20.4 % (20.0-50.0)
== END | disposition home or self-care (01) ==
LOC: LAB SHORT 17:50 → LAB 17:50
PROVIDERS: Internal Medicine Hematology & Oncology
DX: D64.9 Anemia, unspecified (principal)
CPT/HCPCS: 82728; 83540; 83550

== ENCOUNTER 2021-10-12 12:40 | Emergency (ER) | payer OTHER ==
[~2021-10-12] VITALS: Ht 175.3 cm; Wt 59.0 kg
[~2021-10-12 12:40] MED LIST changes: -IMODIUM A-D2 M1 PO
[2021-10-12 13:47] LABS: BASOPHILS ABSOLUTE AUTO 0.09 K/mm3 (0.00-0.23); BASOPHILS PERCENT AUTO 1 % (0-2); EOSINOPHILS ABSOLUTE AUTO 0.29 K/mm3 (0.00-0.68); EOSINOPHILS PERCENT AUTO 2 % (0-6); Hematocrit 39.9 % (37.0-53.0); Hemoglobin 12.5 g/dL (13.5-17.5); IMMATURE GRAN ABSOLUTE AUTO 0.19 K/mm3 (0.00-0.10); IMMATURE GRAN PERCENT AUTO 2 % (0-1); LYMPHOCYTES ABSOLUTE AUTO 0.77 K/mm3 (0.84-5.20); LYMPHOCYTES PERCENT AUTO 6 % (21-46); MONOCYTES ABSOLUTE AUTO 0.76 K/mm3 (0.16-1.47); MONOCYTES PERCENT AUTO 6 % (4-13); Mean Corpuscular HGB 26.8 pg (26.0-34.0); Mean Corpuscular HGB Conc 31.3 g/dL (31.5-36.5); Mean Corpuscular Volume 86 fL (80-100); NEUTROPHILS ABSOLUTE AUTO 10.63 K/mm3 (1.96-9.15); NEUTROPHILS PERCENT AUTO 84 % (41-73); Platelet Count 401 K/mm3 (150-400); RDW Coefficient Variation 19.5 % (11.7-14.2); RDW Standard Deviation 61.7 fL (35.1-46.3); Red Blood Cell Count 4.66 M/mm3 (4.30-5.90); White Blood Cell Count 12.73 K/mm3 (4.00-11.30)
--- NOTE | 2021-10-12 14:00 | NUR ---
Spiritual Care. Met with Pts. SO and son in the ER waiting room. SO Verbalized Pts. current situation, and Pts. desire to not be re-admitted to hospital. Listened empathetically and spiritual care will be available to family should Pt. be admitted a/o they request it.
[2021-10-12 14:15] LABS: Albumin, Blood 3.4 g/dL (3.4-5.0); Albumin/Globulin Ratio 0.8 (0.8-1.8); Bilirubin, Total 0.3 mg/dL (0.1-1.0); Bun/Creatinine Ratio 67.4 (12.0-20.0); Calcium, Blood 9.9 mg/dL (8.5-10.1); Creatinine, Blood 1.29 mg/dL (0.60-1.20); Potassium, Blood 4.8 mmol/L (3.5-5.5); Thyroid Stimulating Hormone 2.49 uIU/mL (0.360-4.800); Total Protein, Blood 7.4 g/dL (6.4-8.2)
[2021-10-12 14:22] LABS: Influenza A, PCR NEGATIVE (NEGATIVE); Influenza B, PCR NEGATIVE (NEGATIVE); Resp Syncytial Virus, PCR NEGATIVE (NEGATIVE); SARS-Cov-2 (COVID-19) PCR, MMC NEGATIVE (NEGATIVE)
[2021-10-12 17:32] LABS: Calcium, Blood 9.1 mg/dL (8.5-10.1); Creatinine, Blood 1.15 mg/dL (0.60-1.20); Potassium, Blood 4.6 mmol/L (3.5-5.5)
[2021-10-12] MEDS ORDERED: IMODIUM A-D2 M1 PO (17:33)
--- NOTE | 2021-10-12 18:33 | NUR ---
pt very anxious and fearfull of treatment. is showing extreme careegiver stress. pt having high output and loose stools he will accept some care but is also stating he is done and wants to .. they would like him in skilled in grants apss by daughter but would accept care here at [facility]. His daughter and discussed letting him come home to their house. pt is a with some in home services. his kps score is 30 %. He is painful having hyper peristalsis and grieving. [facility] will see him tomorrow. He may be better served by hospice.
== END 2021-10-12 17:51 | disposition home or self-care (01) ==
LOC: ER 12:40
PROVIDERS: Emergency Medicine; Student in an Organized Health Care Education/Training Program
DX: E87.1 Hypo-osmolality and hyponatremia (principal); E86.0 Dehydration; R53.1 Weakness; Z51.5 Encounter for palliative care; I12.9 Hypertensive chronic kidney disease with stage 1 through stage 4 chronic kidney disease, or unspecified chronic kidney disease; N18.30 Chronic kidney disease, stage 3 unspecified; M10.9 Gout, unspecified; G47.30 Sleep apnea, unspecified; E03.9 Hypothyroidism, unspecified
CPT/HCPCS: 0241U; 71045; 80048; 80053; 83880; 84443; 84484; 85025; 93005; 93010; 99284-25; J7030

== ENCOUNTER 2021-10-19 09:10 | Emergency (ER) | payer OTHER ==
[~2021-10-19] VITALS: Ht 175.3 cm; Wt 58.1 kg
[~2021-10-19 09:10] MED LIST changes: +IMODIUM A-D2 M1 PO
[2021-10-19 10:04] LABS: BASOPHILS ABSOLUTE AUTO 0.08 K/mm3 (0.00-0.23); BASOPHILS PERCENT AUTO 1 % (0-2); EOSINOPHILS ABSOLUTE AUTO 0.57 K/mm3 (0.00-0.68); EOSINOPHILS PERCENT AUTO 6 % (0-6); Hematocrit 36.4 % (37.0-53.0); Hemoglobin 11.6 g/dL (13.5-17.5); IMMATURE GRAN ABSOLUTE AUTO 0.08 K/mm3 (0.00-0.10); IMMATURE GRAN PERCENT AUTO 1 % (0-1); LYMPHOCYTES ABSOLUTE AUTO 0.89 K/mm3 (0.84-5.20); LYMPHOCYTES PERCENT AUTO 10 % (21-46); MONOCYTES ABSOLUTE AUTO 0.66 K/mm3 (0.16-1.47); MONOCYTES PERCENT AUTO 7 % (4-13); Mean Corpuscular HGB 27.4 pg (26.0-34.0); Mean Corpuscular HGB Conc 31.9 g/dL (31.5-36.5); Mean Corpuscular Volume 86 fL (80-100); Mean Platelet Volume 9.1 fL (9.1-12.4); NEUTROPHILS ABSOLUTE AUTO 6.89 K/mm3 (1.96-9.15); NEUTROPHILS PERCENT AUTO 75 % (41-73); Platelet Count 338 K/mm3 (150-400); RDW Standard Deviation 62.4 fL (35.1-46.3); Red Blood Cell Count 4.24 M/mm3 (4.30-5.90); White Blood Cell Count 9.17 K/mm3 (4.00-11.30)
[2021-10-19 10:35] LABS: Albumin/Globulin Ratio 0.9 (0.8-1.8); Bilirubin, Total 0.3 mg/dL (0.1-1.0); Bun/Creatinine Ratio 24.2 (12.0-20.0); Calcium, Blood 9.1 mg/dL (8.5-10.1); Creatinine, Blood 1.24 mg/dL (0.60-1.20); Globulin, Blood 3.5 g/dL (2.2-4.0); Magnesium, Blood 2.2 mg/dL (1.6-2.4); Phosphorus, Blood 3.9 mg/dL (2.5-4.9); Potassium, Blood 4.1 mmol/L (3.5-5.5); Total Protein, Blood 6.5 g/dL (6.4-8.2)
== END 2021-10-19 15:02 | disposition home or self-care (01) ==
LOC: ER 09:10
PROVIDERS: Physician Assistant
DX: R53.1 Weakness (principal); I12.9 Hypertensive chronic kidney disease with stage 1 through stage 4 chronic kidney disease, or unspecified chronic kidney disease; M10.9 Gout, unspecified; G47.30 Sleep apnea, unspecified; N18.30 Chronic kidney disease, stage 3 unspecified; E03.9 Hypothyroidism, unspecified; K21.9 Gastro-esophageal reflux disease without esophagitis; Z79.899 Other long term (current) drug therapy; Z79.82 Long term (current) use of aspirin
CPT/HCPCS: 36415; 80053; 83735; 84100; 85025; 93005; 93010; 96360; 97162; 99285-25; J7030

== ENCOUNTER 2022-06-25 07:17 | Inpatient (IN) | payer OTHER ==
[~2022-06-25] VITALS: Ht 175.3 cm; Wt 71.0 kg
--- NOTE | 2022-06-26 14:00 | NUR ---
Pt is awake in bed and welcomes my visit. SO is present. Pt. is pleasant and remembers this excellence manager, from a previous hospital visit. Pt. displays evidence of encouragement. Re-establish rapport. Prayed for Pt. Pt. verbalized gratitude for the spiritual care visit, and welcomed this excellence manager to return,
[2022-06-27 04:19] LABS: Hematocrit 37.3 % (37.0-53.0); Hemoglobin 12.7 g/dL (13.5-17.5); Mean Corpuscular Volume 94 fL (80-100); Mean Platelet Volume 9.5 fL (9.1-12.4); Platelet Count 241 K/mm3 (150-400); RDW Coefficient Variation 13.1 % (11.7-14.2); Red Blood Cell Count 3.97 M/mm3 (4.30-5.90); White Blood Cell Count 18.18 K/mm3 (4.00-11.30)
[2022-06-27 04:43] LABS: Calcium, Blood 8.7 mg/dL (8.5-10.1); Creatinine, Blood 1.35 mg/dL (0.60-1.20); Magnesium, Blood 2.1 mg/dL (1.6-2.4); Potassium, Blood 4.1 mmol/L (3.5-5.5)
--- NOTE | 2022-06-27 06:45 | NUR ---
SHIFT SUMMARY PT REMAINS A&O X 4, VSS, ON RA, PT IS TOLERATING CLEAR FLUIDS, BOWEL SOUNDS IMPROVING, PT WAS ABLE TO PASS A SMALL AMOUNT OF RED TINGED STOOL THROUGH THE NIGHT, SBA TO THE BATHROOM, VOIDING WNL, PAIN MNGD WITH TYLENOL, PT CALLS PRN FOR NEEDS, RESTING QUIETLY AT THIS TIME, CALL LIGHT IN REACH
--- NOTE | 2022-06-27 15:56 | NUR ---
Pt. is awake in bed and welcomes my visit. SO is present. Pt. is pleasant, though possibly tired from PT. Facilited a life review and re-established rapport. Pt. displayed evidence of engagement and his SO displays evidence of being very supportive. Prayed with Pt. and SO. Both verbalized gratitude for the spiritual care visit.
--- NOTE | 2022-06-27 18:13 | NUR ---
URINE APPEARS BLOOD-TINGED WITH VOID. VERY SMALL CLOTS PRESENT WELL. DR. KEENAN MADE AWARE- PLAN TO MONITOR OVER NIGHT, WILL MAKE NOC RN AWARE. VSS, PT DENIES PAIN WITH VOID.
--- NOTE | 2022-06-27 18:16 | NUR ---
SUMMARY: PT IS POD1 OSTOMY TAKE DOWN. A/O, VSS. SURGICAL SITE AND WOUND VAC WNL. PAIN SEEMS WELL MANAGED WITH TYLENOL. PT WORKED WITH PT/0T, DOING WELL WITH SBA AND FWW. TOLERATING DIET, NO N/V, REPORTS PASSING FLATUS TONIGHT. WILL CTM AND REPORT TO ZEINAB FISCHER.
--- NOTE | 2022-06-28 04:14 | NUR ---
POD2 ILEOSTOMY TAKE DOWN. MIDLINE REFUGIO REMAINS C/D/I, COMPRESSED. VSS. PT SLEPT WELL T/O THE NIGHT. MEDICATED FOR PAIN WITH SCHEDULED MEDS. PT PASSED A SMALL ROUND STOOL W/O DIFFICULTY, VOIDING W/O DIFFICULTY. TOLLERATING CLEARS W/O N/V. PLAN FOR PT TO ADVANCE DIET. THE PATIENT IS CURRENTLY SLEEPING, IN NO DISTRESS, CALL LIGHT IN REACH
--- NOTE | 2022-06-28 15:32 | NUR ---
Pt. is awake and sitting in a chair when he welcomes my visit. SO is present. Pt. is very pleasant and verbalizes an expectation that he may be D/C tomorrow. Facilitate a deeper life review and consider matters of zhao and belief. Pt. displays evidence of thoughtful enegagement and awareness of his current condition. SO displays evidence of good support. Pt. and SO welcome this chaplai to return in the morning prior to D/C.
--- NOTE | 2022-06-28 19:08 | NUR ---
SHIFT SUMMARY PATIENT ALERT AND ORIENTED AND MOAPA. DIET ADVANCED TO REGULAR, TOLERATING SMALL AMOUNT OF PO INTAKE. TOLERATING ORAL LIQUIDS. REPORTS PASSING GAS AND MEDIUM SOFT BM THIS SHIFT. VOIDING WELL. ABD PAIN MINIMAL, CONTROLLED WITH SCHEDULED ACETAMINOPHEN. REFUGIO INTACT WITH SMALL AMOUNT DRAINAGE. AMBULATING IN HALLS WITH SBA AND FWW. SIGNIFICANT OTHER PRESENT IN ROOM DURING DAY. PLAN TO DISCHARGE HOME TOMORROW 06/29/22. REPORT GIVEN TO SHUTTLE TRUCK DRIVER RN.
--- NOTE | 2022-06-29 04:37 | NUR ---
POD3 FOR ILEOSTINY TAKEDOWN. REFUGIO IS C/D/I, SMALL AREA OF NEW EXUDATE NOTED, SS. PT REQUIRED NORCO AND TYLENOL T/O THE NIGHT FOR PAIN CONTROL. PT SLEPT WELL T/O THE NIGHT. VOIDING W/O DIFFICULTY. PT AMBULATED TO THE BATHROOM TO ATTEMPT TO HAVE BM T/O THE NIGHT. NO ACUTE EVENTS NOTED. PLAN FOR PT TO D/C HOME WITH HH. THE PATIENT IS SLEEPING, IN NO DISTRESS, CALL LIGHT IN REACH
[2022-06-29 07:05] LABS: Hematocrit 37.4 % (37.0-53.0); Hemoglobin 12.7 g/dL (13.5-17.5); Mean Corpuscular Volume 94 fL (80-100); Mean Platelet Volume 9.4 fL (9.1-12.4); Platelet Count 248 K/mm3 (150-400); RDW Coefficient Variation 13.3 % (11.7-14.2); RDW Standard Deviation 46.5 fL (35.1-46.3); Red Blood Cell Count 3.97 M/mm3 (4.30-5.90); White Blood Cell Count 12.99 K/mm3 (4.00-11.30)
[2022-06-29 08:11] LABS: Albumin, Blood 2.8 g/dL (3.4-5.0); Anion Gap 8 mmol/L (6-16); Blood Urea Nitrogen 32 mg/dL (8-24); Bun/Creatinine Ratio 23.4 (12.0-20.0); CO2, Blood 22 mmol/L (21-32); Calcium, Blood 8.4 mg/dL (8.5-10.1); Chloride, Blood 107 mmol/L (98-108); Creatinine, Blood 1.37 mg/dL (0.60-1.20); Glomerular Filtration Rate 49 (60-); Glucose, Blood 105 mg/dL (70-99); Phosphorus, Blood 3.4 mg/dL (2.5-4.9); Potassium, Blood 3.7 mmol/L (3.5-5.5); Sodium, Blood 137 mmol/L (136-145)
--- NOTE | 2022-06-29 15:13 | NUR ---
SHIFT SUMMARY PATIENT ALERT AND ORIENTED. AMBULATING IN HALLS WITH SBA AND FWW. MIDLINE REFUGIO WNL WITH SMALL AMOUNT OF DRIED DRAINAGE. VOIDING WELL. REPORTED FEELING NAUSEA AND FULL BEFORE LUNCH AND DID NOT EAT ANYTHING AT LUNCH. NOTIFIED DR KEENAN. WILL CONTINUE TO MONITOR AND TAKE PO INTAKE SLOWLY WITH LIQUIDS FOR AFTERNOON AND EVENING. PAIN CONTROLLED WITH PO TYLENOL. SIGNIFICANT OTHER ATTENTIVE IN ROOM. PATIENT GOT NEWS THAT A FAMILY MEMBER THIS MORNING, SPIRITUAL CARE IS FOLLOWING. WILL GIVE REPORT TO GONZALEZ ELIZABETH RN.
--- NOTE | 2022-06-29 15:20 | NUR ---
"Spiritual Care Assistance | Nurse/Family Request COntacted by Pts. nurse. Pts. SO just received news of the sudden and unexpected passing of the Pts. nephew. Pts. SO requested someone to go with her to support her as she gies the news to the Pt. This fisher lobster was at bedside of the Pt. when he received the news. The Pt. recieved the news in a way that did not seem to surprise him. Through theraputic listening and a pastoral presence, the Pt. began to verbalize about extended family trauma. Pt. displayed evidence of lessened stress and anxiety. Prayed with Pt. and SO. Both verbalized gratitude for the spiritual care visit."
--- NOTE | 2022-06-30 07:41 | NUR ---
SUMMARY PT PASSED LIQ BM THIS AM.VOIDING AND TOLERATING PO FULL LIQ TONIGHT.
--- NOTE | 2022-06-30 13:21 | NUR ---
CARE ASSUMED OF PT AT 1200. PT REPORTED PAIN AT 7/10, PO PAIN MEDICATION PROVIDED. PT ALSO REPORTS NAUSEA, ZOFRAN GIVEN. PT'S ABD IS DISTENDED WITH TYMPANIC BOWEL SOUNDS. PT REPORTS HE HAS HAD A BM AND BEEN ABLE TO PASS FLATUS TODAY. PT ASSISTED OOB FOR A WALK IN THE HALWAYS. ABD MIDLINE DRESSING IN PLACE, RFEUGIO DRESSING HOLDING SUCTION AND APPEARS TO BE WORKING PROPERLY.
--- NOTE | 2022-06-30 17:14 | NUR ---
SHIFT SUMMARY PT IS POD#4 FROM AN OSTOMY TAKEDOWN. WAITING FOR FULL RETURN OF BOWEL FUNCTION. PT HAD A STOOL AND WAS ABLE TO PASS FLATUS EARLIER TODAY BUT DENIES PASSING FLATUS THIS AFTERNOON/EVENING. PT HAD SOME INCREASED ABD PAIN AND NAUSEA MID DAY, RESOLVED WITH ADMINISTRATION OF OXYCODONE AND ZOFRAN. PT REPORTS PAIN HAS BEEN MANAGABLE SINCE THAT TIME. PT IS A 1 ASSIST WHEN OOB AND HAS AMBULATED X3 TODAY. PT'S S/O HAS BEEN AT THE BEDSIDE FOR SUPPORT. WILL MONITOR UNTIL REPORT TO ZEINAB RN.
--- NOTE | 2022-07-01 08:02 | NUR ---
SUMMARY PT WITHOUT NAUSEA TONIGHT.PASSING FLATUS AND REPROTS FEELING BETTER.
--- NOTE | 2022-07-01 13:00 | NUR ---
NAUSEA AND ELEVATED RESPIRATORY RATE PT REPORTED NAUSEA AFTER EATING LUNCH, HE REPORTED MILD NAUSEA. ZOFRAN GIVEN. DR. KEENAN NOTIFIED AND REPORTED OK TO CALL IN ZOFRAN ODT 4MG PO Q6 PRN DISPENSE 20. ATTEMPTED TO CALL ZOFRAN TO [place] [facility], THEY STATED THEY ARE UNABLE TO TAKE CALL IN PRESCRIPTIONS. PT STATED HE HAS ZOFRAN AT HOME AND [place] STAFF STATE PT HAS A ZOFRAN REFIL AVALIABLE. PT'S RESP RATE ALSO ELEVATED AT 18-22, DR. KEENAN NOTIFIED. PT DENIES FEELING SOB, VSS. PER DR. KEENAN OK TO CONTINUE WITH PLAN FOR DISCHARGE.
--- NOTE | 2022-07-01 13:55 | NUR ---
DISCHARGE PT WAS PROVIDED WITH WRITTEN AND VERBAL DISCHARGE INSTRUCTIONS; PT AND HIS S/O REPORTED UNDERSTANDING. VSS AT TIME OF DISCHARGE. PAIN MANAGED WITH PO PAIN MEDICATION. PT ASSISTED OUT IN W/C BY XAVI LINDSEY. PT CONTACTED AND NOTIFIED TO [employer]PER[employer]ENDENT CLEAN DRESSINGS FROM HOSPITAL WHEN ABLE.
--- NOTE | 2022-07-01 14:10 | NUR ---
MESSAGE LEFT FOR CARE MANAGEMENT AND MAYA MAGDALENO REGARDING NEED FOR HOME HEALTH. PT STATED A PREFERENCE FOR [facility].
--- NOTE | 2022-07-01 16:31 | NUR ---
PT'S S/O CALLED THIS RN AFTER PT WAS DISCHARGED AND STATED PT DOES NOT HAVE METOPROLOL AT HOME ORDERED UPON DISCHARGE. DR. KEENAN NOTIFIED. PER DR. KEENAN PT SHOULD CONTACT PCP OFFICE TOMORROW REGARDING METOPROLOL. PT'S S/O WAS EDUCATED TO REACH OUT TO PT'S PRIMARY CARE DOCTOR REGARDING POSSIBLE NEED FOR METOPROLOL. SHE WAS ALSO EDUCATED TO ROUTINELY MONITOR BP AND HR, WELL EDUCATED ABOUT HIGH BLOOD PRESSURE AND TACHYCARDIA.
== END 2022-07-01 13:55 | disposition home health service (06) | DRG 330 ==
LOC: SURS 06-26 06:00 → PRE IP 06-26 07:30 → SURS 06-26 11:42
PROVIDERS: ADMIT Surgery
PROC: 0DBB0ZZ Excision of Ileum, Open Approach (ICD-10-PCS; principal; 2022-06-26 07:30)
DX: Z43.2 Encounter for attention to ileostomy (principal); E87.1 Hypo-osmolality and hyponatremia; I13.0 Hypertensive heart and chronic kidney disease with heart failure and stage 1 through stage 4 chronic kidney disease, or unspecified chronic kidney disease; I50.32 Chronic diastolic (congestive) heart failure; K43.2 Incisional hernia without obstruction or gangrene; I25.10 Atherosclerotic heart disease of native coronary artery without angina pectoris; K66.0 Peritoneal adhesions (postprocedural) (postinfection); E78.5 Hyperlipidemia, unspecified; N18.30 Chronic kidney disease, stage 3 unspecified; G47.33 Obstructive sleep apnea (adult) (pediatric); N40.0 Benign prostatic hyperplasia without lower urinary tract symptoms; M10.9 Gout, unspecified; K59.00 Constipation, unspecified; K44.9 Diaphragmatic hernia without obstruction or gangrene; K29.70 Gastritis, unspecified, without bleeding; D63.1 Anemia in chronic kidney disease; E03.9 Hypothyroidism, unspecified; H90.3 Sensorineural hearing loss, bilateral; Z98.890 Other specified postprocedural states; Z99.81 Dependence on supplemental oxygen; Z95.5 Presence of coronary angioplasty implant and graft; I25.2 Old myocardial infarction; Z79.899 Other long term (current) drug therapy; Z79.82 Long term (current) use of aspirin; Z79.02 Long term (current) use of antithrombotics/antiplatelets; Z98.1 Arthrodesis status
CPT/HCPCS: 36415; 80048; 80069; 83735; 85027; 86850; 86870; 86900; 86901; 86902; 86922; 97110; 97116; 97162; 97165; 97530; A9270; C9113; J0694; J1100; J1170; J1650; J2370; J2405; J2704; J2795; J3010